=== PATIENT | male | born 1975 | race Caucasian/White ===

== ENCOUNTER 2017-12-18 08:08 | Inpatient (IN) | payer OTHER ==
[2017-12-18 08:41] LABS: ABS Basophils 0 10^3/ul (0-0.2); ABS Eosinophils 0.3 10^3/ul (0-0.6); ABS Monocytes 0.3 10^3/ul (0-0.8); ABS Neutrophils 7.4 10^3/ul (1.5-7.7); ABS Nucleated RBC 0 10^3/ul; Hematocrit 42 % (42-52); Hemoglobin 14.4 g/dl (14.0-18.0); Lymphocyte % 11.6 % (25-47); Mean Corpuscular HGB Conc 35 g/dl (31-36); Mean Corpuscular Hemoglobin 30 pg (27-31); Mean Corpuscular Volume 87 fL (80-94); Mean Platelet Volume 9.4 um3 (7.4-10.4); Nucleated Red Blood Cells % 0.1; Platelet Count 165 10^3/ul (150-450); Red Blood Count 4.82 10^6/ul (4.00-5.40); Red Cell Distribution Width 13 % (10.5-15)
[2017-12-18 08:59] LABS: EGFR Non-African American 77.4 (>60)
--- NOTE | 2017-12-18 09:27 | RAD ---
INDICATION: Chest pain COMPARISON: None TECHNIQUE: An AP portable view obtained at 0859 hours is submitted. FINDINGS: Bones/Soft Tissues: There are no acute bony findings. Cardiomediastinal: The cardiomediastinal silhouette is normal. Lungs: There are no infiltrates. Pleura: There are no pleural effusions. Other: None IMPRESSION: NO ACTIVE DISEASE.
--- NOTE | 2017-12-18 09:42 | ED ---
HPI Chest Pain - HPI Summary HPI Summary: Patient is a 42-year-old male with PMH kidney stones, asthma and nasal polyp removal presenting to the ED from [facility] presenting with acute onset severe midsternal chest pain beginning at 4:30 AM awakening him from sleep. Symptoms remained for approximately 2 hours. Pain is nonradiating. Associated with emesis, diaphoresis and weakness. Symptoms spontaneously resolved approximately 2 hours later and he arrives to the ED asymptomatic. He was given 81 mg at 6:25 AM and another 324 mg at 7:30 AM in route to ED. He states prior to medication, he was asymptomatic. Patient states he has had this midsternal ache/sharp pain which has been intermittent over the past year. Sometimes the pain occurs every few days and sometimes he will go several weeks without episodes. During these episodes that pain is generally a 5/10 and he remains able to deal with the symptoms as he realizes they will eventually spontaneously resolved. He does endorse a cocaine history, however states last use was 2 years ago. Denies any personal cardiac history. Denies any family cardiac history. He denies headache. Patient is a former smoker. Denies any associated shortness of breath. - History of Current Complaint Chief Complaint: EDChestPainROMI Time Seen by Provider: 12/18/17 08:12 Hx Obtained From: Patient Onset/Duration: Started Hours Ago Time of Onset: 04:30 Timing: Constant Initial Severity: Moderate Current Severity: Moderate Pain Intensity: 5 Pain Scale Used: 0-10 Numeric Chest Pain Location: Mid Sternal Chest Pain Radiates: No Character: Dull/Aching Aggravating Factor(s): Nothing Alleviating Factor(s): Nothing Associated Signs and Symptoms: Positive: Chest Pain - Risk Factors Pulmonary Embolism Risk Factors: Negative TAD Risk Factors: Negative - Allergy/Home Medications Allergies/Adverse Reactions: Allergies Allergy/AdvReac Type Severity Reaction Status Date / Time No Known Allergies Allergy Verified 12/18/17 08:10 Home Medications: Home Medications Albuterol HFA INHALER* [Ventolin HFA Inhaler*] 2 puff INH Q6H PRN 12/18/17 [ History Confirmed 12/18/17] Fluticas/Salmet 115/21 HFA(NF) [Advair HFA 115/21 (NF)] 2 puff INH BID 12/18/17 [History Confirmed 12/18/17] Ibuprofen TAB* [Motrin TAB* 600 MG] 600 mg PO Q8H PRN 12/18/17 [History Confirmed 12/18/17] Minerin Cream* [Minerin*] 1 applic TOPICAL DAILY PRN 12/18/17 [History Confirmed 12/18/17] Omeprazole CAP* [Prilosec CAP* 20 MG] 20 mg PO DAILY 12/18/17 [History Confirmed 12/18/17] Ranitidine TAB (NF) [Zantac TAB (NF)] 150 mg PO BID 12/18/17 [History Confirmed 12/18/17] PMH/Surg Hx/FS Hx/Imm Hx Previously Healthy: Yes Respiratory History: Reports: Hx Asthma - Immunization History Hx Pertussis Vaccination: No Immunizations Up to Date: Yes Infectious Disease History: No Infectious Disease History: Denies: Traveled Outside the [place] in Last 30 Days - Social History Occupation: Unemployed Lives: Alone - [facility] Alcohol Use: None Hx Substance Use: No Substance Use Type: Reports: None Hx Tobacco Use: Yes Smoking Status (MU): Former Smoker Review of Systems Constitutional: Negative Negative: Fever, Chills, Fatigue, Skin Diaphoresis Negative: Epistaxis, Dental Pain, Sore Throat, Ear Ache Positive: Chest Pain. Negative: Palpitations Negative: Shortness Of Breath, Cough Genitourinary: Negative Positive: no symptoms reported, see HPI Negative: Arthralgia, Myalgia Neurological: Negative All Other Systems Reviewed And Are Negative: Yes Physical Exam Triage Information Reviewed: Yes Vital Signs On Initial Exam: Initial Vitals Temp Pulse Resp BP Pulse Ox 97.0 F 65 16 126/86 97 12/18/17 08:09 12/18/17 08:09 12/18/17 08:09 12/18/17 08:12/18/17 08:09 Vital Signs Reviewed: Yes Appearance: Positive: Well-Appearing, Well-Nourished Skin: Positive: Warm, Skin Color Reflects Adequate Perfusion Head/Face: Positive: Normal Head/Face Inspection Eyes: Positive: EOMI, NICOLÁS, Conjunctiva Clear Neck: Positive: Supple, No Lymphadenopathy Respiratory/Lung Sounds: Positive: Clear to Auscultation, Breath Sounds Present Cardiovascular: Positive: RRR, Pulses are Symmetrical in both Upper and Lower Extremities, Bradycardia. Negative: Leg Edema Left, Leg Edema Right Musculoskeletal: Positive: Normal, Strength/ROM Intact Neurological: Positive: Sensory/Motor Intact, Alert, Oriented to Person Place, Time, Speech Normal Psychiatric: Positive: Normal, Affect/Mood Appropriate AVPU Assessment: Alert Diagnostics - Vital Signs Vital Signs Temp Pulse Resp BP Pulse Ox 12/18/17 08:37 22 136/82 12/18/17 08:22 65 12/18/17 08:09 97.0 F 65 16 126/86 97 - Laboratory Lab Results: Lab Results 12/18/17 12/18/17 12/18/17 Range/Units 08:30 08:30 08:30 WBC 9.0 (3.5-10.8) 10^3/ul RBC 4.82 (4.00-5.40) 10^6/ul Hgb 14.4 (14.0-18.0) g/dl Hct 42 (42-52) % MCV 87 (80-94) fL MCH 30 (27-31) pg MCHC 35 (31-36) g/dl RDW 13 (10.5-15) % Plt Count 165 (150-450) 10^3/ul MPV 9.4 (7.4-10.4) um3 Neut % (Auto) 81.6 (38-83) % Lymph % (Auto) 11.6 L (25-47) % [place] % (Auto) 3.5 (0-7) % Eos % (Auto) 3.0 (0-6) % Baso % (Auto) 0.3 (0-2) % Absolute Neuts (auto) 7.4 (1.5-7.7) 10^3/ul Absolute Lymphs (auto) 1.0 (1.0-4.8) 10^3/ul Absolute Monos (auto) 0.3 (0-0.8) 10^3/ul Absolute Eos (auto) 0.3 (0-0.6) 10^3/ul Absolute Basos (auto) 0 (0-0.2) 10^3/ul Absolute Nucleated RBC 0 10^3/ul Nucleated RBC % 0.1 D-Dimer, Quantitative (Less Than 230) ng/mL Sodium 140 (135-145) mmol/L Potassium 4.4 (3.5-5.0) mmol/L Chloride 106 (101-111) mmol/L Carbon Dioxide 30 (22-32) mmol/L Anion Gap 4 (2-11) mmol/L BUN 18 (6-24) mg/dL Creatinine 1.06 (0.67-1.17) mg/dL Est GFR ( Amer) 93.6 (>60) Est GFR (Non-Af Amer) 77.4 (>60) BUN/Creatinine Ratio 17.0 (8-20) Glucose 99 (70-100) mg/dL Lactic Acid 1.0 (0.5-2.0) mmol/L Calcium 9.2 (8.6-10.3) mg/dL Total Bilirubin 0.40 (0.2-1.0) mg/dL AST 57 H (13-39) U/L ALT 22 (7-52) U/L Alkaline Phosphatase 109 H (34-104) U/L Troponin I 5.73 H* (<0.04) ng/mL Total Protein 6.7 (6.4-8.9) g/dL Albumin 4.2 (3.2-5.2) g/dL Globulin 2.5 (2-4) g/dL Albumin/Globulin Ratio 1.7 (1-3) 12/18/17 Range/Units 09:19 WBC (3.5-10.8) 10^3/ul RBC (4.00-5.40) 10^6/ul Hgb (14.0-18.0) g/dl Hct (42-52) % MCV (80-94) fL MCH (27-31) pg MCHC (31-36) g/dl RDW (10.5-15) % Plt Count (150-450) 10^3/ul MPV (7.4-10.4) um3 Neut % (Auto) (38-83) % Lymph % (Auto) (25-47) % [place] % (Auto) (0-7) % Eos % (Auto) (0-6) % Baso % (Auto) (0-2) % Absolute Neuts (auto) (1.5-7.7) 10^3/ul Absolute Lymphs (auto) (1.0-4.8) 10^3/ul Absolute Monos (auto) (0-0.8) 10^3/ul Absolute Eos (auto) (0-0.6) 10^3/ul Absolute Basos (auto) (0-0.2) 10^3/ul Absolute Nucleated RBC 10^3/ul Nucleated RBC % D-Dimer, Quantitative 241 H (Less Than 230) ng/mL Sodium (135-145) mmol/L Potassium (3.5-5.0) mmol/L Chloride (101-111) mmol/L Carbon Dioxide (22-32) mmol/L Anion Gap (2-11) mmol/L BUN (6-24) mg/dL Creatinine (0.67-1.17) mg/dL Est GFR ( Amer) (>60) Est GFR (Non-Af Amer) (>60) BUN/Creatinine Ratio (8-20) Glucose (70-100) mg/dL Lactic Acid (0.5-2.0) mmol/L Calcium (8.6-10.3) mg/dL Total Bilirubin (0.2-1.0) mg/dL AST (13-39) U/L ALT (7-52) U/L Alkaline Phosphatase (34-104) U/L Troponin I (<0.04) ng/mL Total Protein (6.4-8.9) g/dL Albumin (3.2-5.2) g/dL Globulin (2-4) g/dL Albumin/Globulin Ratio (1-3) Result Diagrams: 18 08:30 12/18/17 08:30 Lab Statement: Any lab studies that have been ordered have been reviewed, and results considered in the medical decision making process. Re-Evaluation - Re-Evaluation First Eval Re-Evaluation Time: 09:20 Change: Unchanged - patient continues to be asymptomatic Chest Pain Course/Dx - Course Course Of Treatment: During the course of treatment, the patient is evaluated for midsternal chest pain. He was asymptomatic on arrival so was not given nitroglycerin, aspirin or morphine. He had 8 total of 405 mg aspirin prior to arrival. EKG obtained immediately on arrival which shows no evidence of ST elevations. With the read of sinus bradycardia and probable left ventricular hypertrophy. Troponin 5.73. [place] Dr. Melendez called at 9:27 AM who suggests CRP, sedimentation rate, echo, repeat EKG and admitted to hospital service. Drug screen urine obtained. Repeat EKG shows sinus bradycardia with ST elevation, probable normal early re-pole pattern. Discussed case with Dr. Benson at 9:35 AM who agrees to come see patient in the ED and consult. Consult with Dr. Benson who recommended 1mg/kg Lovenox. Dr. Melendez recommends plavix, nitopaste, and lipitor. - Chest Pain Differential Diagnosis/HQI/PQRI: Acute OR, ACS, Angina, Other: - Pericarditis, endocarditis - Diagnoses Provider Diagnoses: Chest pain, Elevated troponin - Provider Notifications Discussed Care Of Patient With: Joe Benson Instructed by Provider To: Admit As Inpatient Discharge - Sign-Out/Discharge Documenting (check all that apply): Patient Departure - Discharge Plan Condition: Fair Disposition: ADMITTED TO [facility] - Billing Disposition and Condition Condition: FAIR Disposition: Admitted to [facility]
[2017-12-18] MEDS ORDERED: Enoxaparin(*) 80 MG/0.8 ML SYR SUBCUT ONE (09:56)
[2017-12-18] MEDS ORDERED: Iohexol 350* (CONTRAST) 500 ML MDV IV ONE (09:56)
[2017-12-18] MEDS ORDERED: Albuterol HFA INHALER* 8 gm MDI INH PRN (10:32)
[2017-12-18] MEDS ORDERED: Nitroglycerin TAB 0.4 MG* 0.4 MG TAB SL ONE (10:34)
[2017-12-18] MEDS ORDERED: Morphine INJ* 2 MG/ML 1 ML SYRINGE (TWO MG - NEW SYRINGE VERSION) IV PRN (10:35)
--- NOTE | 2017-12-18 10:37 | ECHO ---
Patient: LAVELLE MONTAGUE [id number] [facility] Rec#: [id number] : 1975 Date: 12/18/2017 Age: 42y Height: 178 cm / 70.1 in Weight: 82 kg / 180.7 lbs Sex: M BSA: 2 Room#: 18 Admit Date#: 12/18/2017 Type: Inpatient Referring: Veronica Solis Reading: Herminio Melendez MD [employer] Officer: Karyna Joaquin RDCS,RDMS Transthoracic Echocardiogram Indication: CP BP: 136/82 HR: 57 Rhythm: Bradycardia Findings History: Smoker, asthma Technical Comments: The study quality is good. Left Ventricle: The left ventricular chamber size is normal. There is no left ventricular hypertrophy. There is a prominent septal knuckle. There is a focal wall motion abnormality present. There is mildly decreased left ventricular systolic function. The estimated ejection fraction is 40-45%. There is no consistent Doppler evidence of clinically significant diastolic dysfunction. The basal anterolateral, basal inferolateral, basal inferior, mid anterolateral, mid inferolateral, and mid inferoseptal wall segments are hypokinetic (score 2). The mid inferior wall segment is akinetic (score 3). Overall wallmotion score index is 1.50 Left Atrium: The left atrium is mildly dilated. Right Ventricle: The right ventricular chamber size and systolic function are within normal limits. Right Atrium: The right atrial cavity size is normal. Aortic Valve: The aortic valve is trileaflet. Systolic excursion of the aortic valve is normal. There is no evidence of aortic regurgitation. There is no evidence of aortic stenosis. Mitral Valve: The mitral valve leaflets appear normal. There is mild mitral regurgitation. There is no evidence of mitral stenosis. Tricuspid Valve: The tricuspid valve leaflets are normal. There is mild tricuspid regurgitation. No pulmonary hypertension is noted. Pulmonic Valve: The pulmonic valve appears normal. There is a trace pulmonic regurgitation. Pericardium: There is no significant pericardial effusion. Aorta: The aortic root appears normal. There is no dilatation of the aortic arch. Pulmonary Artery: The main pulmonary artery appears normal. Venous: The inferior vena cava appears normal in size. There is a greater than 50% respiratory change in the inferior vena cava dimension. Summary: There was not any prior study for comparison. Conclusions There is mildly decreased left ventricular systolic function. There is a focal wall motion abnormality present. The estimated ejection fraction is 40-45%. The left atrium is mildly dilated. There is mild mitral regurgitation. There is mild tricuspid regurgitation. Measurements Name Value Normal Range RVIDd (AP) 2D 3.3 cm (0.9 - 2.6) RVDdMajor (2D) 3.6 cm (2.2 - 4.4) RAd ISD 4CH 4.9 cm (3.4 - 4.9) RA (A4C)W 4.7 cm (2.9 - 4.6) IVSd (2D) 1.2 cm (0.6 - 1) LVPWd (2D) 0.9 cm (0.6 - 1) LVIDd (2D) 5.1 cm (3.6 - 5.4) LVIDs (2D) 4.4 cm - LV FS (2D) 13 % (25 - 45) Aortic Annulus 2.3 cm (1.4 - 2.6) Ao root diameter (2D) 3.2 cm (2.1 - 3.5) Ascending Ao 2.9 cm (2.1 - 3.4) Aortic arch 3.1 cm (1.8 - 3.4) LA dimension (AP) 2D 4 cm (2.3 - 3.8) LAd ISD 4CH 5.2 cm (2.9 - 5.3) LA ISD 4CH W 4.4 cm (2.5 - 4.5) Name Value Normal Range LA ESV BP (A/L) index 37 ml/m2 - Name Value Normal Range MV E-wave Vmax 0.8 m/sec - MV deceleration time 158 msec - MV A-wave Vmax 0.7 m/sec - MV E:A ratio 1.2 ratio - P. vein S-wave Vmax 0.5 m/sec - P. vein D-wave Vmax 0.5 m/sec - P. vein S:D Vmax ratio 1 ratio - P. vein A-wave duration 164 msec - LV septal e' Vmax 0.1 m/sec - LV lateral e' Vmax 0.09 m/sec - LV E:e' septal ratio 8 ratio - LV E:e' lateral ratio 9 ratio - Name Value Normal Range AV Vmax 1 m/sec - AV VTI 22 cm - AV peak gradient 4 mmHg - AV mean gradient 2 mmHg - LVOT Vmax 0.8 m/sec - LVOT VTI 16 cm - LVOT peak gradient 3 mmHg - LVOT mean gradient 1 mmHg - LUI Vmax 0.6 m/sec - Name Value Normal Range MR Vmax 4.7 m/sec - MR VTI 167 cm - MR flow (PISA) 30 ml/sec - MR ERO 0.06 cm2 - MR PISA radius 0.4 cm - MR alias Vmax 30 cm/sec - Name Value Normal Range TR Vmax 2.2 m/sec - TR peak gradient 19 mmHg - RAP 3 mmHg - RVSP 22 mmHg - IVC diameter 2 cm - Name Value Normal Range PV Vmax 0.5 m/sec - PV peak gradient 1 mmHg - Wallmotion BAS Normal BA Normal BAL Hypokinetic HERNESTO Hypokinetic BI Hypokinetic BIS Normal MAS Normal MA Normal MAL Hypokinetic MIL Hypokinetic AL Akinetic MIS Hypokinetic Normal AA Normal AL Normal AI Normal APEX Normal
--- NOTE | 2017-12-18 11:11 | RAD ---
INDICATION: Chest pain. Short of breath. Evaluate for pulmonary embolus. COMPARISON: None TECHNIQUE: Axial source images were obtained from the thoracic inlet to the hemidiaphragms following administration of [address] angiographic technique was utilized. Coronal and sagittal reconstructed images were acquired. CHEST FINDINGS: Neck/thyroid: The visualized neck to include the thyroid appear normal. Chest wall: There are no acute abnormalities of the bony thorax or chest wall. There is no supraclavicular, infraclavicular, or axillary lymphadenopathy. Lungs : There are no pulmonary parenchymal masses or infiltrates. The pulmonary interstitium appears normal. There are no endobronchial lesions. Cardiomediastinal structures: There is no CT evidence of acute pulmonary embolic disease. The heart is normal in size. There is no pericardial effusion. There is no evidence of aortic aneurysm or dissection. There is no mediastinal or hilar adenopathy. The esophagus appears normal. Pleura : There are no pleural-based masses or effusions. Other: None. IMPRESSION: NO CT EVIDENCE OF ACUTE PULMONARY EMBOLIC DISEASE. LUNGS CLEAR.
[2017-12-18] MEDS ORDERED: Atorvastatin* 80 MG TAB PO ONE (11:15)
[2017-12-18] MEDS ORDERED: Nitroglycerin 2% OINT* 1 GM PAK TOPICAL ONE (11:16)
[2017-12-18] MEDS ORDERED: Clopidogrel TAB* 300 MG PO ONE (11:17)
[2017-12-18] MEDS: Nitroglycerin TAB 0.4 MG* 0.4 MG TAB SL PRN (12:45)
--- NOTE | 2017-12-18 13:19 | HP ---
HISTORY AND PHYSICAL: DATE OF ADMISSION: 12/18/17 CHIEF COMPLAINT: Substernal chest pain. 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 He mentions that he has been having some intermittent midsternal chest pain for the past 1 year and a half with no identifiable alleviating nor exacerbating factors. A few hours prior to admission at around 4 :30 a.m., he was awoken from his sleep given his mid sternal chest pain that he felt is deep in quality and it was nonradiating. Again, he is not able to identify any exacerbating factors, but mentions that it feels a bit better when he is lying supine which is something new at this point from his previous history of possible angina. He was then given 81 mg of aspirin at 6:25 and mentions that 5 minutes later he feels that his chest pain peaked and disappeared completely by around 7 a.m. While on route to the ED, he was given another 324 mg of aspirin by EMS and by the time, he reached the ED, he was chest pain free. He further narrates a history intermittent chest pain as discussed with and sometimes he will go for several weeks without having any episodes and usually around 5/10 in pain scale, but mentions that today's symptoms were somewhat more painful and a little bit change in character than what he previously experienced. In the ED, he was found to have a troponin of 5.73 and was then subsequently repeated an hour later which showed an increase in his troponin at 10.34. In the ED, I requested that the patient be given one time Lovenox. Maria Teresa, the ED PA also have already spoken with Dr. Melendez who recommended a repeat EKG which I have reviewed which showed no significant changes from previous. He also recommended an echocardiogram which has been resulted and showed mildly decreased left ventricular systolic function with an EF of 40% to 45% and with focal wall motion abnormality present. More specifically, the basal anterolateral, basal inferolateral, basal inferior and mid anterolateral as well as mid inferolateral and mid inferoseptal wall segments appeared hypokinetic with a wall motion score index of 1.5. He also was found to have some mildly dilated left atrium, mild mitral regurgitation, and mild tricuspid regurgitation. Dr. Melendez is currently en route to see the patient in the ER. 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 PAST SURGICAL HISTORY: Kidney stones status post cystoscopy with lithotripsy, nasal polypectomy. ALLERGIES: NKDA. FAMILY HISTORY: Cancer in his mother, throat cancer. His dad with unknown type of cancer. SOCIAL HISTORY: He mentions that he has about an average of 2 to 5 years of 1 pack per day smoking history which he mentions is difficult to quantify given that he has tried to quit multiple times and has recently cut back to 3 to 5 cigarettes per day since being in [facility]. He mentioned that his last IV drug use/illicit drug use was about 2 years ago with cocaine and heroin. REVIEW OF SYSTEMS: The patient upon my evaluation no longer complains of any chest pain, although he has had one recently which is change in both in its quality as well as its severity leading to his presentation. Denied any shortness of breath, denied any headache, fevers, chills, nausea, vomiting, abdominal pain, diarrhea, constipation, pain, and/or increased frequency in urination, myalgias, arthralgias, throat pain, or new skin lesions. The rest of the 14-point review of systems other than what was described above are otherwise unremarkable. PHYSICAL EXAMINATION GENERAL APPEARANCE: The patient is awake, alert, and oriented x3, not in acute distress. VITAL SIGNS: Reveals the most recent vital signs of records with blood pressure of 121/81, 60 beats per minute heart rate, 22 per minute respiratory rate, saturating at 96% on room air. HEENT: Normocephalic and atraumatic. PERRLA. Extraocular muscles intact. Negative for icterus. Moist oral mucosa. Negative throat erythema. NECK: Soft, supple with no cervical lymphadenopathy. No JVD. But with positive hepatojugular reflux. HEART: S1 and S2 within normal limits. Regular rate and rhythm. No murmurs, rubs, or gallops. No murmurs has been identified in both the supine and forward leaning position and does not suggest perimyocarditis. ABDOMEN: Soft, nondistended, and nontender. Normoactive bowel sounds x4 quadrants. EXTREMITIES: No cyanosis, clubbing, or edema. PSYCHIATRIC: No active psychosis, depression, suicidal, or homicidal ideations. SKIN: Warm to touch. DIAGNOSTIC STUDIES/LAB DATA: Pertinent laboratories are as follows: CBC is relatively normal except for a mildly low differential lymph count of 11.6, D- dimer was found to be mildly elevated at 241, but low for his age. His CMP was relatively reassuring except for mildly elevated AST of 57 and alkaline phosphatase of 109. And of course as discussed his troponin was elevated at 5.73 and on repeat was found to be 10.34. His EKG shows 57 beats per minute sinus bradycardia with no ST segment changes and on repeat, there is no significant ST segment changes as well with the same rhythm in the sinus bradycardic range. Chest x-ray shows no active disease. ASSESSMENT AND PLAN: As follows: The patient is a 42-year-old gentleman with a history of gastroesophageal reflux disease, asthma, and history of IV drug use with cocaine and heroin. Last use was 2 years ago, being admitted for non-ST segment elevation myocardial infarction. 1. Non-ST segment elevation myocardial infarction vs Printzmetal spasms. I have advised the patient to be given at least a one-time dose of 1 mg/kg Lovenox and we will restart aspirin at 325 mg p.o. daily tomorrow given he has already received 81 plus 324 of aspirin both [facility] as well as en route respectively. We will place the patient on a p.r.n. nitroglycerin sublingual given the patient is chest pain free with the p.r.n. breakthrough with morphine. We will place the patient on oxygen protocol to maintain sats at least 92% to 94% above. We will further await Dr. Melendez's evaluation and likely the patient will be taken for a cath, but we will defer. CTA of the chest has also been ordered by ER staff, although I do not believe that this is due to a pulmonary embolism given his significantly elevated troponin as well as absence of radiation of pain to the back as well as his age , just the D-dimer value is less than 400. Utox pending. 2. Asthma, not in acute exacerbation. Continue p.r.n. albuterol MDI and we will continue watchful waiting. 3. Gastroesophageal reflux disease. We will hold off on ranitidine given the patient is already on a PPI and therefore instead we will the patient on PPI b.i.d. 4. Prophylaxis. The patient has been fully anticoagulated. We will discuss with Dr. Melendez if he prefers the patient to be placed on subsequent anticoagulation post catheterization and we will defer at this time. 5. Disposition. As above. [id number] #: [id number] MTDD
[2017-12-18] MEDS ORDERED: Heparin 2 UNITS/ML IVPREMIX* 2,000 ML IV ONE (13:25)
[2017-12-18] MEDS ORDERED: Heparin(*) 1000 UNIT/ML 10 ML VIAL CATH LAB IV ONE (13:25)
[2017-12-18] MEDS ORDERED: Midazolam* 1 MG/ML 10 ML VIAL (10 MG) ONE ×2 (13:25→13:39)
[2017-12-18] MEDS ORDERED: VERAPAMIL 2.5 MG/ML 2 ML VIAL ** 5 mg/2 ml ONE (13:25)
[2017-12-18] MEDS ORDERED: fentaNYL* 50 MCG/ML 2 ML VIAL (100 MCG VIAL) ONE ×3 (13:25→14:17)
[2017-12-18] MEDS ORDERED: Iohexol 350 (CONTRAST) 200 ML MDV IV ONE (13:26)
[2017-12-18] MEDS ORDERED: nitroGLYCERIN DRIP* 25,000 MCG/250 ML BTL ONE (13:26)
[2017-12-18] MEDS ORDERED: Lidocaine 1%* 5 ML VIAL ONE (13:27)
[2017-12-18] MEDS ORDERED: Clopidogrel TAB* 300 MG PO STA (13:50)
[2017-12-18] MEDS ORDERED: NS 0.9% 1000 ML* 1,000 ML IV SCH (15:00)
--- NOTE | 2017-12-18 15:55 | CONS ---
CC: Dr. Herminio Melendez * CARDIOLOGY CONSULTATION: DATE OF CONSULT: 12/18/17 REASON FOR EVALUATION: Chest pain, non-ST elevation [place]. HISTORY OF PRESENT ILLNESS: This is a 42-year-old inmate who presented with 3 hours of severe chest pain this morning, which woke him from sleep. He had trouble describing the quality of pain, but said it was severe and doubled him over and was associated with profuse diaphoresis, vomiting was at its most intense at 6 a.m. He said it was 10/10. He was brought to the emergency room by that time his pain had resolved, originally told the doctors it was gone, told me in retrospect it was down to 5/10 when he first arrived here and then went to 3/10 and by the time I finished my exam at about 11:15, it was resolved. 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 However, his troponins were elevated at 5.73 at 08:30 a.m. and a repeat at 09:39 was 10.34. He said that the pain seemed to be worse lying on his back and somewhat better sitting up. He said this was the most intense episode he has had, but over the last [id number] he has had lesser episodes. He said that a year-and-a- half ago, he was evaluated and it was thought that he had asthma and was given inhalers. He said the inhalers made it so that he was less short of breath when he had the episodes, but they continued to happen and first they were happening every couple of weeks. They would resolve by the time he got to medical care. He said that about a month ago they were happening more frequently just about every other day. He stopped smoking and they got better. He had a mild episode last week and then this episode this morning awoke him from sleep and was the most severe episode. He says they usually occur when sitting and watching television or sleeping. 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 He jogs 15 to 30 minutes most days and he does weightlifting. He does not get the pain with exercise. He has had no orthopnea, no peripheral edema, no strokes or mini strokes. No palpitations, no syncope, or near syncope. He says he has a longstanding history of tobacco use of a pack per day since he is a teenager until a few weeks ago. He smoked 1 pack a day for approximately 25 years. He denies hypertension, denies hyperlipidemia, denies diabetes. He does have a history of cocaine use until 3 years ago. He has a history of nephrolithiasis since 2016, status post stenting. Of note, he reports that about half hour before he gets these episodes of chest pain, he will have some rhinorrhea and then his symptoms usually occur half hour later. He was in the ER in July and it was thought he had indigestion, he said there was no blood testing done. He said that he was started on Zantac and took it regularly for several months, but there was no change in his symptoms. The patient reports that about 4 months ago he noticed a subcutaneous nodule on his left breast and is concerned about that because of his mother's history of breast cancer. He also has a history of drinking vodka on weekends prior to incarceration in July of 2016. No recreational drugs or alcohol since then. PAST SURGICAL HISTORY: Includes a nasal polyp. FAMILY HISTORY: Mother of throat cancer and had breast cancer. Father is alive at 70 and well. He has a sister who is alive and well. He is single, has no children. 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 REVIEW OF SYSTEMS: Review of systems x10 was negative except as above. PHYSICAL EXAM: He is a well-developed, well-nourished muscular gentleman, in no apparent distress. Weight 180 pounds, blood pressure 132/96, pulse of 67 with sitting. No JVD. Carotids 2+ without bruits. No cervical adenopathy. No thyromegaly. Cardiac Exam: S1 and S2. No clear murmurs, gallops, or rubs. Chest was clear. No CVAT. There was a small firm area under his left nipple about 1 cm. Abdomen: Bowel sounds present, nontender. Femoral pulses intact without bruits. Distal pulses intact. No edema. Motor strength 5/5 bilaterally. Deep tendon reflexes 2/4. Alert and oriented x3. DIAGNOSTIC STUDIES/LAB DATA: EKG reveled sinus bradycardia 57 with nonspecific inferior T-wave inversion in III and nonspecific ST changes in aVF and that was from 09:20 not significantly different from 08:[address] changes in aVF and the T-wave inversion was slightly more pronounced. He did have an echocardiogram performed, which revealed an EF of 40 to 45% with inferoseptal, posterolateral hypokinesis, small area of akinesis, mild MR, and there was mild TR. He had a CTA of his chest, no evidence of pulmonary embolic events and labs , normal BMP. BNP of 67, CRP of 1.27, sed rate is 7, normal CBC. D-dimer is mildly elevated at 241. IMPRESSION: My impression is that Mr. Kern appears to have a non-ST elevation myocardial infarction with a pattern of pain that is somewhat unusual in that it occurs at rest and preceded by rhinorrhea, reason possibly of vasomotor dysfunction. He has stable exercise capacity in between episodes. For the time being, I have recommended the following: I suggest that we continue aspirin and add Plavix to his regimen. We continue with Lovenox as you are doing. Would add low-dose nitrates. He is to have a catheterization. I discussed the case with Dr. Rodriguez. If he has recurrent pain, we will do it on a more urgent basis. I will keep him n.p.o. Would add Lipitor 40 mg today to his regimen. I strongly advised discontinuation of tobacco use. If indeed he has spasm, he may benefit from sublingual nitroglycerin p.r.n. as well as calcium channel armen to decrease likelihood of vasomotor dysfunction. If his EF remains low and he had atherosclerotic disease, we will consider adding an KELLY inhibitor. Obviously, cocaine could be life-threatening in the setting of vasospasm or coronary artery disease and needs to be discontinued. He did mention that he has a left nipple subcutaneous lesion, I suggested followup as an outpatient. [id number]/[facility] #: [id number] addendum: Patient subsequently had recurrent mild cp on 12.18.17 and underwent cardiac cath ; see separate report. It confirmed spasm in an OM branch relieved with IC NTG. His cp was also relieved. I suspect that his presentation is consistent with coronary vasospasm ( presumably in the RCA and other vessels given the inferior posterolateral wall motion abnormalities. Plan: 1. add amlodipine for vasospasm 2. continue asa 81 mg 3. continue statin 4. advised to discontinue tobacco, 5. risk of vasospasm, vessel injury, and with cocaine, amphetamines reviewed. 6. add kelly inhib if bp will allow 7. PRN sl NTG for recurrent episodes. 8. Patient should have sl ntg with him at all times. 9. Refrain from vigorous activity including soccer , jogging until further notice. 10. gentle walking is permitted. FEDERICO 8.10.18 9;22 am MTDD
[2017-12-18] MEDS: amLODIPine TAB* 5 MG PO SCH (17:38)
[2017-12-18] MEDS: Acetaminophen TAB* 325 MG PO PRN (17:39)
[2017-12-18] MEDS: traMADol TAB* 50 MG PO PRN (20:53)
[2017-12-18] MEDS: Pantoprazole TAB (NF) 40 MG TAB PO SCH (20:53)
[2017-12-19 06:10] LABS: ABS Basophils 0 10^3/ul (0-0.2); ABS Lymphocytes 2.2 10^3/ul (1.0-4.8); ABS Monocytes 0.4 10^3/ul (0-0.8); ABS Neutrophils 2.6 10^3/ul (1.5-7.7); ABS Nucleated RBC 0 10^3/ul; Eosinophil % 15.8 % (0-6); Hematocrit 41 % (42-52); Hemoglobin 13.9 g/dl (14.0-18.0); Lymphocyte % 35.1 % (25-47); Mean Corpuscular HGB Conc 34 g/dl (31-36); Mean Corpuscular Hemoglobin 30 pg (27-31); Mean Corpuscular Volume 87 fL (80-94); Mean Platelet Volume 9.8 um3 (7.4-10.4); Nucleated Red Blood Cells % 0.3; Platelet Count 156 10^3/ul (150-450); Red Blood Count 4.72 10^6/ul (4.00-5.40); Red Cell Distribution Width 13 % (10.5-15); White Blood Count 6.2 10^3/ul (3.5-10.8)
[2017-12-19 07:32] LABS: EGFR Non-African American 84.7 (>60)
[2017-12-19] MEDS ORDERED: Aspirin EC TAB* 325 MG PO SCH (09:00)
[2017-12-19] MEDS ORDERED: Clopidogrel TAB* 75 MG PO SCH (09:00)
[2017-12-19] MEDS: amLODIPine TAB* 5 MG PO SCH (09:48)
[2017-12-19] MEDS: Atorvastatin* 40 MG TAB PO SCH (09:48)
[2017-12-19] MEDS: Acetaminophen TAB* 325 MG PO PRN ×2 (09:50→22:20)
[2017-12-19] MEDS: Pantoprazole TAB (NF) 40 MG TAB PO SCH ×2 (09:51→22:16)
--- NOTE | 2017-12-19 14:19 | ECHO ---
Patient: LAVELLE MONTAGUE [id number] [facility] Rec#: [id number] : 1975 Date: 12/19/2017 Age: 42y Height: 178 cm / 70.1 in Weight: 82.7 kg / 182.3 lbs Sex: M BSA: 2 Room#: 453 Admit Date#: 12/18/2017 Type: Inpatient Referring: Herminio Melendez MD Reading: Herminio Melendez MD Safety Sealer: Pura Singh RN RDCS Transthoracic Echocardiogram Indication: Myocardial infarction, S/P PCI BP: 130/80 HR: 61 Rhythm: NSR Findings History: Smoker, asthma. This is a LIMITED exam to reassess EF. Technical Comments: The study quality is good. Left Ventricle: There is a focal wall motion abnormality present. There is mildly decreased left ventricular systolic function. The estimated ejection fraction is 40-45%. closer to 45%. The basal inferolateral, basal inferior, mid inferolateral, mid inferior, and apical inferior wall segments are hypokinetic (score 2). Overall wallmotion score index is 1.31 Conclusions There is a focal wall motion abnormality present. There is mildly decreased left ventricular systolic function. The estimated ejection fraction is 40-45%, closer to 45%. Mild interval improvement in the moderate area of inferior posterolateral hypokinesis c/t 8.9.18. There has been resolution of the small area of inferior-posterior akinesis. The EF was closer to 35-40% of the prior study when compared visually. Wallmotion BAS Normal BA Normal BAL Normal HERNESTO Hypokinetic BI Hypokinetic BIS Normal MAS Normal MA Normal MAL Normal MIL Hypokinetic FL Hypokinetic MIS Normal Normal AA Normal AL Normal AI Hypokinetic APEX Normal
--- NOTE | 2017-12-19 16:45 | RAD ---
INDICATION: Suspect left-sided gynecomastia COMPARISON: None TECHNIQUE: Radial and antiradial scans of the retroareolar portions of each breast were performed using grayscale and color Doppler imaging. FINDINGS: There is asymmetric parenchymal tissue in the retroareolar left breast. This does not appear masslike. Clinical management, however, is required to include subareolar biopsy if clinically suspicious. No additional findings. IMPRESSION: PROBABLE LEFT-SIDED GYNECOMASTIA. CLINICAL MANAGEMENT IS REQUIRED OUTLINED ABOVE. ASSESSMENT: ACR BIRADS Category 2: Benign
--- NOTE | 2017-12-19 16:45 | RAD ---
INDICATION: Palpable abnormality left breast. Evaluate for gynecomastia /mass COMPARISON: Baseline Date of last clinical breast examination: Today TECHNIQUE: Digital breast tomosynthesis was performed on both breasts in the mediolateral oblique and craniocaudad projections. C-View reconstructed mammograms were obtained in both projections. The examination was reviewed with the [email or web address] CAD system. The study was reviewed by a computer aided diagnosis system. Breast Composition: 1 The breasts are almost entirely fatty Masses: There is non masslike asymmetric density in the retroareolar left breast which is likely gynecomastia. Ultrasonographic evaluation, however, is recommended and is currently pending. Calcifications: There are no suspicious or clustered microcalcifications. Breast architecture: There are no areas of architectural distortion. Skin: There is no skin thickening or nipple retraction. Other: None IMPRESSION: ASYMMETRIC PARENCHYMAL DENSITY IN THE RETROAREOLAR LEFT BREAST MAY REPRESENT GYNECOMASTIA. ULTRASONOGRAPHY IS PENDING. IF THIS IS SUSPICIOUS CLINICALLY, SUGGEST SURGICAL REFERRAL FOR SUBAREOLAR BIOPSY. Assessment: ACR BI-RADS Category 0: Incomplete - Need Additional Imaging Evaluation and /or Prior Mammograms for Comparison PT Reminder: CPT II Codes: 7025F Follow-up: No Follow Up [employer] recommend annual screening mammography beginning at age 40.
--- NOTE | 2017-12-19 17:23 | PN ---
Subjective Date of Service: 12/19/17 - ] Interval History: Pt seen and examined. Meds and labs reviewed. CC: Brief Chest pain early in the morning---pt, however, did not report it to anyone. ROS: Denied LLOYD/dizziness, F/C, N/V, CP, SOB, increased cough, sputum production , abd pain, diarrhea, constipation, dysuria, myalgias, arthralgias, throat pain , and new skin lesions. The rest of the 14 point ROS are unremarkable. PHYSICAL EXAM: GEN APPEARANCE: Awake, not in acute distress HEENT: NC/AT, PERRLA, moist oral mucosa, (-) throat erythema, (+) HJR NECK: Soft, supple, (-) cervical LAD, (-)JVD HEART: S1S2 WNL, RRR, No MRG CHEST: CTA, BL, GAE, No W/R/R, Pt has palpable breast nodule/mass ABD: Soft, ND/NT, NABS 4x Q EXT: No C/C/E SKIN: Warm to touch PSYCH: No active psychosis, hallucinations, depression, SI/HI Objective Active Medications: Acetaminophen (Tylenol Tab*) 650 mg PO Q6H PRN PRN Reason: HEADACHE Last Admin: 12/19/17 09:50 Dose: 650 mg Albuterol (Ventolin Hfa Inhaler*) 2 puff INH Q6H PRN PRN Reason: WHEEZING Amlodipine Besylate (Norvasc Tab*) 2.5 mg PO DAILY [facility] Last Admin: 12/19/17 09:48 Dose: 2.5 mg Aspirin (Aspirin 81 Mg Chew Tab*) 81 mg PO DAILY [facility] Atorvastatin Calcium (Lipitor*) 40 mg PO DAILY [facility] Last Admin: 12/19/17 09:48 Dose: 40 mg Morphine Sulfate (Morphine Inj ((Syringe))*) 0.5 mg IV Q6H PRN PRN Reason: PAIN Nitroglycerin (Nitroglycerin Tab 0.4 Mg*) 0.4 mg SL Q5M PRN PRN Reason: ANGINA Last Admin: 12/18/17 12:45 Dose: 0.4 mg Pantoprazole Sodium (Protonix Tab (Nf)) 40 mg PO BID [facility] Last Admin: 12/19/17 09:51 Dose: 40 mg Tramadol HCl (Ultram*) 50 mg PO Q6H PRN PRN Reason: PAIN Last Admin: 12/18/17 20:53 Dose: 50 mg Vital Signs - 8 hr 12/19/17 12/19/17 12/19/17 11:00 13:11 13:53 Temperature 98.2 F 98.1 F Pulse Rate 53 57 75 Respiratory 20 20 Rate Blood Pressure 113/74 116/65 123/70 (mmHg) O2 Sat by Pulse 97 97 Oximetry 12/19/17 15:37 Temperature 98.5 F Pulse Rate 59 Respiratory 20 Rate Blood Pressure 122/71 (mmHg) O2 Sat by Pulse 96 Oximetry Oxygen Devices in Use Now: None Result Diagrams: 12/19/17 05:15 12/19/17 05:15 Additional Lab and Data: Lab Results 12/18/17 12/18/17 12/18/17 Range/Units 08:30 08:30 08:30 WBC 9.0 (3.5-10.8) 10^3/ul RBC 4.82 (4.00-5.40) 10^6/ul Hgb 14.4 (14.0-18.0) g/dl Hct 42 (42-52) % MCV 87 (80-94) fL MCH 30 (27-31) pg MCHC 35 (31-36) g/dl RDW 13 (10.5-15) % Plt Count 165 (150-450) 10^3/ul MPV 9.4 (7.4-10.4) um3 Neut % (Auto) 81.6 (38-83) % Lymph % (Auto) 11.6 L (25-47) % Collin % (Auto) 3.5 (0-7) % Eos % (Auto) 3.0 (0-6) % Baso % (Auto) 0.3 (0-2) % Absolute Neuts (auto) 7.4 (1.5-7.7) 10^3/ul Absolute Lymphs (auto) 1.0 (1.0-4.8) 10^3/ul Absolute Monos (auto) 0.3 (0-0.8) 10^3/ul Absolute Eos (auto) 0.3 (0-0.6) 10^3/ul Absolute Basos (auto) 0 (0-0.2) 10^3/ul Absolute Nucleated RBC 0 10^3/ul Nucleated RBC % 0.1 D-Dimer, Quantitative (Less Than 230) ng/mL Sodium 140 (135-145) mmol/L Potassium 4.4 (3.5-5.0) mmol/L Chloride 106 (101-111) mmol/L Carbon Dioxide 30 (22-32) mmol/L Anion Gap 4 (2-11) mmol/L BUN 18 (6-24) mg/dL Creatinine 1.06 (0.67-1.17) mg/dL Est GFR ( Amer) 93.6 (>60) Est GFR (Non-Af Amer) 77.4 (>60) BUN/Creatinine Ratio 17.0 (8-20) Glucose 99 (70-100) mg/dL Lactic Acid 1.0 (0.5-2.0) mmol/L Calcium 9.2 (8.6-10.3) mg/dL Total Bilirubin 0.40 (0.2-1.0) mg/dL AST 57 H (13-39) U/L ALT 22 (7-52) U/L Alkaline Phosphatase 109 H (34-104) U/L Troponin I 5.73 H* (<0.04) ng/mL Total Protein 6.7 (6.4-8.9) g/dL Albumin 4.2 (3.2-5.2) g/dL Globulin 2.5 (2-4) g/dL Albumin/Globulin Ratio 1.7 (1-3) 12/18/17 Range/Units 09:19 WBC (3.5-10.8) 10^3/ul RBC (4.00-5.40) 10^6/ul Hgb (14.0-18.0) g/dl Hct (42-52) % MCV (80-94) fL MCH (27-31) pg MCHC (31-36) g/dl RDW (10.5-15) % Plt Count (150-450) 10^3/ul MPV (7.4-10.4) um3 Neut % (Auto) (38-83) % Lymph % (Auto) (25-47) % Collin % (Auto) (0-7) % Eos % (Auto) (0-6) % Baso % (Auto) (0-2) % Absolute Neuts (auto) (1.5-7.7) 10^3/ul Absolute Lymphs (auto) (1.0-4.8) 10^3/ul Absolute Monos (auto) (0-0.8) 10^3/ul Absolute Eos (auto) (0-0.6) 10^3/ul Absolute Basos (auto) (0-0.2) 10^3/ul Absolute Nucleated RBC 10^3/ul Nucleated RBC % D-Dimer, Quantitative 241 H (Less Than 230) ng/mL Sodium (135-145) mmol/L Potassium (3.5-5.0) mmol/L Chloride (101-111) mmol/L Carbon Dioxide (22-32) mmol/L Anion Gap (2-11) mmol/L BUN (6-24) mg/dL Creatinine (0.67-1.17) mg/dL Est GFR ( Amer) (>60) Est GFR (Non-Af Amer) (>60) BUN/Creatinine Ratio (8-20) Glucose (70-100) mg/dL Lactic Acid (0.5-2.0) mmol/L Calcium (8.6-10.3) mg/dL Total Bilirubin (0.2-1.0) mg/dL AST (13-39) U/L ALT (7-52) U/L Alkaline Phosphatase (34-104) U/L Troponin I (<0.04) ng/mL Total Protein (6.4-8.9) g/dL Albumin (3.2-5.2) g/dL Globulin (2-4) g/dL Albumin/Globulin Ratio (1-3) Assess/Plan/Problems-Billing Assessment: - Patient Problems (1) NSTEMI (non-ST elevated myocardial infarction) Current Visit: Yes Status: Acute Code(s): I21.4 - NON-ST ELEVATION (NSTEMI) MYOCARDIAL INFARCTION SNOMED Code(s): 239061443 Comment: -Likely due to coronary vasospasm given inferior posterolateral wall motion abnormalities -Continue Amlodipine, ASA, statins, abstinence from tobacco, and PRN NTG, SL -Consider adding ACEI in AM or if CP reccurs, consider increasing amlodipine instead??? Will discuss with Cards if it does. -Appreciate Dr. Cain/Cardiology service input (2) Breast mass in male Current Visit: Yes Status: Acute Code(s): N63.0 - UNSPECIFIED LUMP IN UNSPECIFIED BREAST SNOMED Code(s): 25402274 Comment: -For limited left breast U/S and mammogram---d/w Dr. Rios given pt is in correctional facility with significant family history (3) Asthma Current Visit: Yes Status: Acute Code(s): J45.909 - UNSPECIFIED ASTHMA, UNCOMPLICATED SNOMED Code(s): 228748328 Comment: -Not in acute exacerbation -Continue PRN Albuterol (4) GERD (gastroesophageal reflux disease) Current Visit: Yes Status: Acute Code(s): K21.9 - GASTRO-ESOPHAGEAL REFLUX DISEASE WITHOUT ESOPHAGITIS SNOMED Code(s): 385983044 Comment: -Continue Pantoprazole (5) DVT prophylaxis Current Visit: Yes Status: Acute Code(s): HEI3082 - SNOMED Code(s): 358328409 Comment: -Will Place of SQ Lovenox Status and Disposition: -For possible D/C in AM -Being monitored O/N due to recurrent CP -(-)HIV and HCV
[2017-12-19] MEDS ORDERED: Enoxaparin(*) 40 MG/0.4 ML SYR SUBCUT SCH (18:00)
[2017-12-19] MEDS: Aspirin 81 mg CHEW TAB* 81 MG TAB.CHEW PO SCH (18:04)
[2017-12-20] MEDS: Atorvastatin* 40 MG TAB PO SCH (08:26)
[2017-12-20] MEDS: amLODIPine TAB* 5 MG PO SCH (08:27)
[2017-12-20] MEDS: Acetaminophen TAB* 325 MG PO PRN (08:27)
[2017-12-20] MEDS: Aspirin 81 mg CHEW TAB* 81 MG TAB.CHEW PO SCH (08:27)
[2017-12-20] MEDS ORDERED: Lisinopril TAB* 5 MG PO SCH (10:00)
[2017-12-20] MEDS: Pantoprazole TAB (NF) 40 MG TAB PO SCH (10:05)
[2017-12-20] MEDS: Nitroglycerin TAB 0.4 MG* 0.4 MG TAB SL PRN ×3 (12:16→12:27)
[2017-12-20] MEDS: traMADol TAB* 50 MG PO PRN (12:20)
[2017-12-20] MEDS ORDERED: Al Hydrox/Mg Hydrox/Simet LIQ* 30 ML UDC PO STA (12:26)
[2017-12-20 14:31] VITALS: BP 118/61
--- NOTE | 2017-12-20 16:22 | CATH ---
CARDIAC CATH REPORT: DATE OF CATHETERIZATION: 12/18/17. PRIMARY CARE PHYSICIAN: ebony HEALTH THERAPIST: PROCEDURES: 1. Right radial artery access, bilateral selective coronary cineangiography. 2. Left heart catheterization. 3. Left ventriculography. HISTORY: A 42-year-old male prisoner with troponin positive ACS, with several prior episodes of prolonged rest pain especially in the morning hours, referred for coronary angiography due to non-ST elevation infarct. PROCEDURE ACCESS: Right radial artery, sheath 6F slender. MEDICATIONS: 1. Subcu lidocaine. 2. IV Versed. 3. IV fentanyl. 4. Heparin 3000 units. 5. Verapamil 3 mg. 6. Nitroglycerin 300 mcg IA. 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 With resolution of angiographic ostial spasm, he had resolution of his chest "soreness" without knowing that he had received nitroglycerin. HEMODYNAMICS: Initial AO 99/74, LV 98/3-15, no aortic valve gradient on pullback. ANGIOGRAPHY: RCA: The RCA is large, dominant with a large PDA and small-to- moderate posterolateral. He has mild luminal irregularity without significant stenosis. The RCA has somewhat slow flow. Left Main: The left main is large, normal. LAD: The LAD is large, extends past apex, supplies a large diagonal branch, which bifurcates, the LAD has mild systolic bridging in its mid portion, has no significant stenosis. Circumflex: The circumflex is large, not dominant with a moderate first marginal, and then 3 small marginals before a moderate posterolateral. The fourth marginal has ostial 90% stenosis, is very small, the posterolateral has 30% proximal stenosis. After IA nitroglycerin 200 mcg, repeat angiogram in the same angle documented resolution of the ostial spasm of the fourth marginal branch. LV gram: There is inferior and inferobasilar severe hypo to akinesis with some tethering, estimated LVEF 45%. IMPRESSION: 1. Documented angiographic symptomatic coronary artery spasm, fourth marginal branch ostium. This is not concordant with his wall motion abnormality, I suspect he has had recurring episodes of RCA spasm with an inferior infarct. He will be treated medically for coronary artery spasm. 2. Normal left-sided hemodynamics. 3. Successful right radial artery access. 4. Mild LV systolic dysfunction. [id number]/[facility] #: [id number] GINA
--- NOTE | 2017-12-20 23:44 | DS ---
CC: Dr. Barraza; Dr. Melendez DISCHARGE SUMMARY: DATE OF ADMISSION: DATE OF DISCHARGE: 12/20/17 DISCHARGE DIAGNOSES: As follows: 1. Non ST-segment elevation myocardial infarction secondary to coronary vessel spasms. 2. 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 3. Breast mass on the left, likely due to gynecomastia, status post breast ultrasound and mammogram. 4. Asthma. 5. Gastroesophageal reflux disease. DISCHARGE MEDICATIONS: As follows: 1. Tylenol 650 mg p.o. q.6 p.r.n. 2. Albuterol 2 puffs inhalation q.6 p.r.n. 3. Amlodipine 2.5 mg p.o. daily. 4. Aspirin 81 mg p.o. daily. 5. Atorvastatin 40 mg p.o. daily. 6. Advair HFA 115/21 mcg 2 puffs inhalation b.i.d. 7. Lisinopril 2.5 mg p.o. daily. 8. Minerin cream 1 application topically daily. 9. Nitroglycerin 0.4 mg sublingual q.5 minutes x3, then by the third dose the patient has been instructed to call for a licensed practitioner for evaluation. 10. Pantoprazole 40 mg p.o. b.i.d. 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 He presented to the ED with an initial troponin of 5.18 and 4 hours later was repeated and was found to be 9.80. His EKG did not show any ST segment changes. Cardiology was immediately called due to suspicion of NSTEMI secondary to coronary vasospasm given his urine tox screen was found to be negative and it is positive for opiates simply because he was given opiates in the ER due to his chest pain. He was taken to the laboratory operations coordinator and was found to have angiographic symptomatic coronary artery spasm, fourth marginal branch ostium, which was thought to be not concordant with his wall motion abnormality. It is suspected that he has had recurring episodes of RCA spasm with an inferior infarct. He was found to have normal left-sided hemodynamics with mild LV systolic dysfunction. His 2D echo reveals focal wall motion abnormality that is present with mildly decreased left ventricular systolic function with an EF of 40% to 45%, but closer to 45% with mild interval improvement in the moderate area of inferior posterolateral hypokineses and there has been a resolution of the small area of the inferoposterior akinesis that was found. Previous 2D echo done showed an EF of 35% to 40%. The latest 2D echo was done on 12/19/17 and the first one was done the day before on . He also was ruled out for a PE with a CT angio on admission. During his hospital course, he relates a narrative of significant family history with his mother passing away of breast and throat cancer and was concerned about a small lump under his left nipple. He was then sent for ultrasound and mammography of the area and it was thought that this is nonsuspicious and likely due to gynecomastia. He denies any exogenous steroid use that may lead to this. His testosterone level was drawn prior to his discharge, which was found to be normal at 287.67. He was advised to follow up with his primary care physician, on follow up to determine the next best step would be. He was advised to continue to observe his breast area given he was particularly concerned about this given his significant family history and if any changes such as increasing pain, discharge, or additional lesions or masses found to follow up for a possible biopsy with surgical practitioner and will defer. The patient was advised to follow up and/or call his PCP/facility MD within 3 days post discharge and if he is having any problems and/or if his symptoms worsen to call his PCP first to see if his concerns can be addressed in a timely manner. If not or if he has been advised to go to the ER, to please discuss with his PCP whether [facility] followup is appropriate versus ER and to call [facility] if deemed appropriate. He was advised to make sure he has his subinguinal nitroglycerin readily available and if his symptoms do not resolve after the third dose if needed, then he must inform his facility MD to be further evaluated. He was advised to follow up with his storage management architect, Dr. Melendez, in 2 weeks and to call his office to schedule an appointment with a phone number of [phone]. He was advised to stop smoking cigarettes at any amount forever. He was advised to continue abstaining from any illicit drugs, although he has had a negative drug screen on admission, however given his previous history he was reminded not to expose himself especially to cocaine and/or amphetamines. He was advised to discuss his testosterone level with his PCP to further evaluate the reason for his gynecomastia. He was advised that if he develops any new breast mass, breast pain, discharge, abnormality of skin around his breast/pectorals, to please have this evaluated by his surgeon for possible biopsy given his significant family history. He was advised to call my office regarding any questions, concerns, or further clarifications regarding his discharge plans and/or prescriptions. He was advised to take his medications as prescribed. PHYSICAL EXAMINATION: Reveals a most recent vital signs of records with blood pressure of 118/61, 20 per minute respiratory rate, 65 beats per minute heart rate, 97.8 degrees Fahrenheit. General Appearance: The patient is awake, alert , and oriented x3. Not in acute distress. HEENT: Normocephalic and atraumatic , PERRLA. Extraocular movements intact. Negative for icterus. Moist oral mucosa. Negative throat erythema. Neck is soft, supple with no cervical lymphadenopathy, no JVD. Heart: S1 and S2 within normal limits. Regular rate and rhythm. No murmurs, rubs, or gallops. Chest: Clear to auscultation bilaterally, good air entry. No wheezes, rales, or rhonchi. Abdomen is soft, nondistended, and nontender. Normoactive bowel sounds 4 times Q. Extremities: No cyanosis, clubbing, or edema. Psychiatric: No active psychosis, depression, suicidal nor homicidal ideations. Skin: Warm to touch. TIME SPENT: The total time spent evaluating the patient, reviewing pertinent data, and appropriate documentation is greater than 30 minutes. [id number]/[facility] #: [id number] GINA
== END 2017-12-20 16:28 | DRG 190 ==
LOC: ED 08:08 → EEVIPCON 10:30 → MEDTELE 10:30
PROVIDERS: ADMIT Student in an Organized Health Care Education/Training Program; ATTEND Student in an Organized Health Care Education/Training Program
PROC: B2151ZZ Fluoroscopy of Left Heart using Low Osmolar Contrast (ICD-10-PCS; 2017-12-18)
PROC: B2111ZZ Fluoroscopy of Multiple Coronary Arteries using Low Osmolar Contrast (ICD-10-PCS; 2017-12-18)
PROC: 4A023N7 Measurement of Cardiac Sampling and Pressure, Left Heart, Percutaneous Approach (ICD-10-PCS; principal; 2017-12-18 14:00)
DX: I21.4 Non-ST elevation (NSTEMI) myocardial infarction (principal); J45.909 Unspecified asthma, uncomplicated; I08.1 Rheumatic disorders of both mitral and tricuspid valves; K21.9 Gastro-esophageal reflux disease without esophagitis; I20.1 Angina pectoris with documented spasm; N62 Hypertrophy of breast; N63.20 Unspecified lump in the left breast, unspecified quadrant; Z79.82 Long term (current) use of aspirin; Z87.442 Personal history of urinary calculi; Z87.891 Personal history of nicotine dependence; Z80.0 Family history of malignant neoplasm of digestive organs; Z80.3 Family history of malignant neoplasm of breast; Z56.0 Unemployment, unspecified
CPT/HCPCS: 36415; 71045; 71275; 77062; 77066; 80053; 80061; 80307; 83605; 83735; 83880; 84100; 84403; 84484; 85025; 85379; 85652; 86140; 86703; 86803; 93005; 93306; 93308; 93458; 99156; 99157; 99284; A9270-GY; G0279; J1644; J1650; J2250; J3010; Q9967

== ENCOUNTER → 2018-03-09 | Emergency (ER) | payer OTHER ==
--- NOTE | 2018-03-09 16:22 | RAD ---
INDICATION: Chest pain. COMPARISON: Comparison is made with a prior study from December 18, 2017. TECHNIQUE: Dual-energy PA views of the chest were obtained. FINDINGS: The heart is within normal limits in size. Mediastinal and hilar contours appear within normal limits. The lungs are clear. No pleural effusion is present. IMPRESSION: NO EVIDENCE FOR ACTIVE CARDIOPULMONARY DISEASE.
[2018-03-09 16:56] LABS: ABS Basophils 0 10^3/ul (0-0.2); ABS Eosinophils 0.7 10^3/ul (0-0.6); ABS Lymphocytes 1.9 10^3/ul (1.0-4.8); ABS Monocytes 0.4 10^3/ul (0-0.8); ABS Neutrophils 5.2 10^3/ul (1.5-7.7); ABS Nucleated RBC 0 10^3/ul; Eosinophil % 7.9 % (0-6); Hematocrit 40 % (42-52); Hemoglobin 13.8 g/dl (14.0-18.0); Lymphocyte % 22.9 % (25-47); Mean Corpuscular HGB Conc 34 g/dl (31-36); Mean Corpuscular Hemoglobin 30 pg (27-31); Mean Corpuscular Volume 86 fL (80-94); Mean Platelet Volume 9.4 um3 (7.4-10.4); Nucleated Red Blood Cells % 0.1; Platelet Count 190 10^3/ul (150-450); Red Blood Count 4.67 10^6/ul (4.00-5.40); Red Cell Distribution Width 14 % (10.5-15); White Blood Count 8.3 10^3/ul (3.5-10.8)
[2018-03-09 17:08] LABS: EGFR Non-African American 77.4 (>60)
--- NOTE | 2018-03-09 18:59 | ED ---
HPI Chest Pain - HPI Summary HPI Summary: Patient is a 42 y/o M BIBA w/ c/o chest pain since this morning at 0930. He states he took one nitro after onset which resolved chest pain. Chest pain returned 30 minutes later, patient took another nitro; it returned an hour later , took another nitro, 30 minutes later another episode onset which was reported to have been "very bad". He states he was [facility] and diagnosed with prinzmetal angina and SC. Patient reports that he had heart catheter at this time. He notes that he was placed on new cardiac medications recently. Patient cannot recall the name of his new medications but reports it has not been effective. He reports SOB, N/V and diaphoresis. In the room, patient is not experiencing chest pain. Patient takes ASA daily. In room, patient denies fever, chills, LLOYD, ear pain, sore throat, blurred vision, double vision, neck pain, ABD pain, back pain, dysuria, hematuria, blood in the stool, edema, bruising, rashes, anxiety, and depression. On triage, pain is rated 4/10 , nothing is noted to aggravate/alleviate Sx. Home medications and allergies are reviewed. - History of Current Complaint Chief Complaint: EDChestWallPain Hx Obtained From: Patient Onset/Duration: Started Hours Ago - onset 0930, Resolved - chest pain Timing: Intermittent Initial Severity: Moderate - 4/10 on triage Current Severity: None - pain denied in room Pain Intensity: 0 Pain Scale Used: 0-10 Numeric - 0/10 Aggravating Factor(s): Nothing Alleviating Factor(s): Nothing Associated Signs and Symptoms: Positive: Chest Pain, Shortness of Breath, Diaphoresis, Nausea, Vomiting, Other: - denies ear pain, sore throat, neck pain , dysuria, hematuria, blood in the stool, bruising, rashes, and depression. Negative: Vision Changes, Anxiety, Headaches, Fever, Chills, Back Pain, Abdominal Pain, Edema - Additional Pertinent History Primary Care Physician: [id number] - Allergy/Home Medications Allergies/Adverse Reactions: Allergies Allergy/AdvReac Type Severity Reaction Status Date / Time No Known Allergies Allergy Verified 12/18/17 08:10 Home Medications: Home Medications Diltiazem XR EXTEND Releas(NF) [Cartia XR (NF)] 120 mg PO DAILY 03/09/18 [ History Confirmed 03/09/18] Ibuprofen TAB* [Motrin TAB* 600 MG] 600 mg PO TID PRN 03/09/18 [History Confirmed 03/09/18] Isosorbide Mononitrate ER TAB* [Imdur ER TAB*] 30 mg PO DAILY 03/09/18 [History Confirmed 03/09/18] LoraTADine TAB(NF) [Claritin 10 MG TAB(NF)] 10 mg PO DAILY 03/09/18 [History Confirmed 03/09/18] Magnesium Oxide TAB* [MagOx 400 TAB*] 400 mg PO DAILY 03/09/18 [History Confirmed 03/09/18] Ranitidine TAB (NF) [Zantac TAB (NF)] 150 mg PO BID 03/09/18 [History Confirmed 03/09/18] amLODIPine TAB* [Norvasc 5 mg TAB*] 5 mg PO DAILY 03/09/18 [History Confirmed ] PMH/Surg Hx/FS Hx/Imm Hx Cardiovascular History: Reports: Hx Angina, Hx Myocardial Infarction Respiratory History: Reports: Hx Asthma Sensory History: Denies: Hx Cataracts, Hx Contacts or Glasses, Hx Eye Injury, Hx Eye Prosthesis, Hx Glaucoma, Hx Legally Blind, Hx Macular Degeneration, Hx Vision Problem, Hx Deafness, Hx Hearing Aid, Hx Hearing Problem Opthamlomology History: Denies: Hx Cataracts, Hx Contacts or Glasses, Hx Eye Injury, Hx Eye Prosthesis, Hx Glaucoma, Hx Legally Blind, Hx Macular Degeneration, Hx Vision Problem Neurological History: Denies: Hx Dementia, Hx Developmental Delay, Hx Headaches, Hx Migraine, Hx Nerve Disease, Hx Seizures, Hx Spinal Cord Injury, Hx Transient Ischemic Attacks (TIA), Other Neuro Impairments/Disorders - Cancer History Hx Chemotherapy: No Hx Radiation Therapy: No Infectious Disease History: No Infectious Disease History: Denies: Hx Clostridium Difficile, Hx Hepatitis, Hx Human Immunodeficiency Virus (HIV), Hx of Known/Suspected MRSA, Hx Shingles, Hx Tuberculosis, Hx Known/ Suspected VRE, Hx Known/Suspected VRSA, History Other Infectious Disease, Traveled Outside the [place] in Last 30 Days - Family History Known Family History: Negative: Blood Disorder - Social History Alcohol Use: None Hx Substance Use: No Substance Use Type: Reports: None Hx Tobacco Use: Yes Smoking Status (MU): Light Every Day Tobacco Smoker Type: Cigarettes Have You Smoked in the Last Year: No Review of Systems Positive: Skin Diaphoresis. Negative: Fever, Chills Positive: Other - NEGATIVE: double vision . Negative: Blurred Vision Negative: Sore Throat, Ear Ache Positive: Chest Pain Positive: Shortness Of Breath Positive: Vomiting, Nausea. Negative: Abdominal Pain Positive: other - NEGATIVE: blood in stool . Negative: dysuria, hematuria Positive: Other - NEGATIVE: neck/back pain . Negative: Edema Negative: Rash, Bruising Negative: Headache Negative: Anxious, Depressed All Other Systems Reviewed And Are Negative: No Physical Exam - Summary Physical Exam Summary: Appearance: Alert, conversive, nontoxic appearing Skin: Warm, dry, no mottling, no rashes, no contusions HEENT: EOMI, PERRL, moist mucous membranes Neck: No masses on the neck, supple Respiratory: Clear to auscultation, breath sounds present, no rales, no rhonchi , no wheezes Cardiovascular: RRR, pulses are symmetrical in both lower and upper extremities Abdomen: Soft, non-tender Bowel Sounds: Present Musculoskeletal: No CVA tenderness, no obvious deformity, moving all extremities in a grossly normal manner Neurological: A&Ox3, CN II-XII Intact, moving all extremities symmetrically Psychiatric: Normal affect and mood Triage Information Reviewed: Yes Vital Signs On Initial Exam: Initial Vitals Temp Pulse Resp BP Pulse Ox 98.5 F 70 16 120/71 95 03/09/18 15:44 03/09/18 15:44 03/09/18 15:44 03/09/18 15:44 03/09/18 15:44 Vital Signs Reviewed: Yes Diagnostics - Vital Signs Vital Signs Temp Pulse Resp BP Pulse Ox 03/09/18 15:44 98.5 F 70 16 120/71 95 - Laboratory Lab Results: Lab Results 03/09/18 03/09/18 03/09/18 Range/Units 16:45 16:45 16:45 WBC 8.3 (3.5-10.8) 10^3/ul RBC 4.67 (4.00-5.40) 10^6/ul Hgb 13.8 L (14.0-18.0) g/dl Hct 40 L (42-52) % MCV 86 (80-94) fL MCH 30 (27-31) pg MCHC 34 (31-36) g/dl RDW 14 (10.5-15) % Plt Count 190 (150-450) 10^3/ul MPV 9.4 (7.4-10.4) um3 Neut % (Auto) 63.3 (38-83) % Lymph % (Auto) 22.9 L (25-47) % Hale % (Auto) 5.4 (0-7) % Eos % (Auto) 7.9 H (0-6) % Baso % (Auto) 0.5 (0-2) % Absolute Neuts (auto) 5.2 (1.5-7.7) 10^3/ul Absolute Lymphs (auto) 1.9 (1.0-4.8) 10^3/ul Absolute Monos (auto) 0.4 (0-0.8) 10^3/ul Absolute Eos (auto) 0.7 H (0-0.6) 10^3/ul Absolute Basos (auto) 0 (0-0.2) 10^3/ul Absolute Nucleated RBC 0 10^3/ul Nucleated RBC % 0.1 D-Dimer, Quantitative < 200 (Less Than 230) ng/mL Sodium 138 (135-145) mmol/L Potassium 3.9 (3.5-5.0) mmol/L Chloride 106 (101-111) mmol/L Carbon Dioxide 27 (22-32) mmol/L Anion Gap 5 (2-11) mmol/L BUN 14 (6-24) mg/dL Creatinine 1.06 (0.67-1.17) mg/dL Est GFR ( Amer) 93.6 (>60) Est GFR (Non-Af Amer) 77.4 (>60) BUN/Creatinine Ratio 13.2 (8-20) Glucose 112 H (70-100) mg/dL Calcium 8.9 (8.6-10.3) mg/dL Magnesium 1.8 L (1.9-2.7) mg/dL Total Bilirubin 0.40 (0.2-1.0) mg/dL AST 41 H (13-39) U/L ALT 43 (7-52) U/L Alkaline Phosphatase 92 (34-104) U/L Total Protein 6.3 L (6.4-8.9) g/dL Albumin 4.1 (3.2-5.2) g/dL Globulin 2.2 (2-4) g/dL Albumin/Globulin Ratio 1.9 (1-3) TSH 1.78 (0.34-5.60) mcIU/mL Result Diagrams: 03/09/18 16:45 03/09/18 16:45 Lab Statement: Any lab studies that have been ordered have been reviewed, and results considered in the medical decision making process. - Radiology CXR Radiology Interpretation Completed By: Radiologist Summary of Radiographic Findings: no evidence for active cardiopulmonary disease , this report was reviewed by ED physician. - EKG 1650 Cardiac Rate: NL - rate of 69 BPM EKG Rhythm: Sinus Rhythm Summary of EKG Findings: normal QRS, normal QTc, normal axis, normal ST/T wave Re-Evaluation - Re-Evaluation First Eval Re-Evaluation Time: 19:40 Comment: Consult and results of labs and tests were discussed with patient, he will be discharged. Chest Pain Course/Dx - Course Course Of Treatment: Patient is a 42 y/o M BIBA w/ c/o chest pain since this morning at 0930. He states he took one nitro after onset which resolved chest pain. Chest pain returned 30 minutes later, patient took another nitro; it returned an hour later, took another nitro, 30 minutes later another episode onset which was reported to have been "very bad". He states he was at [facility] de[facility] and diagnosed with prinzmetal angina and SC. Patient reports that he had heart catheter at this time. He notes that he was placed on new cardiac medications recently. Patient cannot recall the name of his new medications but reports it has not been effective. He reports SOB, N/V and diaphoresis. In the room, patient is not experiencing chest pain. Patient takes ASA daily. Physical exam was normal. CXR showed no evidence for active cardiopulmonary disease, EKG showed sinus rhythm with rate of 69 bpm, normal QRS , normal QTc, normal axis, normal ST/T wave. Labs showed WBC 8.3, d-dimer < 200 , glucose 112, AST 41, magnesium 1.8, trop 0.37, TSH 1.78. 1934 - Dr. Rodriguez had performed the heart catheterization, Dr. Randall who was manager of administration machine stapler was consulted on patient's case. As patient's heart catheterziation in December was clean, he states patient can be safely discharged to his snf facility. This was discussed with patient. Dx of chest pain. - Diagnoses Provider Diagnoses: Chest pain - Provider Notifications Discussed Care Of Patient With: Ricardo Randall Time Discussed With Above Provider: 19:35 Instructed by Provider To: Other - 1934 - Dr. Rodriguez had performed the heart catheterization, Dr. Randall who was manager of administration machine stapler was consulted on patient 's case. As patient's heart catheterziation in December was clean, he states patient can be safely discharged to his snf facility. Discharge - Sign-Out/Discharge Documenting (check all that apply): Patient Departure - discharge - Discharge Plan Condition: Stable Disposition: HOME Patient Education Materials: Chest Pain (ED) Referrals: Aliza MONROE,Dee Silver [Primary Care Provider] - Additional Instructions: Please follow up with the correctional facility provider. return if worse or any new symptoms. Take the nitro as previously instructed. - Billing Disposition and Condition Condition: STABLE Disposition: Home - Attestation Statements Document Initiated by Quinton: Yes Documenting Scribe: Jacques Calle Provider For Whom Quinton is Documenting (Include Credential): Varsha Hammond MD Scribe Attestation: IJacques , scribed for Varsha Hammond MD on 03/12/18 at 1751. Scribe Documentation Reviewed: Yes Provider Attestation: The documentation as recorded by the Jacques burton accurately reflects the service I personally performed and the decisions made by me, Varsha Hammond MD
[2018-03-09 19:35] VITALS: BP 118/63
== END | disposition home or self-care (01) ==
LOC: ED 15:35
DX: R07.9 Chest pain, unspecified (principal); R06.02 Shortness of breath; R11.2 Nausea with vomiting, unspecified; H92.09 Otalgia, unspecified ear; J02.9 Acute pharyngitis, unspecified; F17.210 Nicotine dependence, cigarettes, uncomplicated
CPT/HCPCS: 36415; 71045; 80053; 83735; 84443; 84484; 85025; 85379; 93005; 99283

== ENCOUNTER 2018-03-21 12:26 | Inpatient (IN) | payer OTHER ==
[~2018-03-21 12:26] MED LIST: EPINEPHrine SYR 0.1MG/ML* SYRINGE ONE; Sodium Bicarbonate 8.4%* 50 ML SYRINGE ONE
[2018-03-21] MEDS ORDERED: Ticagrelor* 90 MG TAB PO ONE (12:38)
[2018-03-21] MEDS ORDERED: Heparin for STEMI(*) 5,000 UNITS/ML 1 ML VIAL IV ONE (12:38)
--- NOTE | 2018-03-21 12:38 | ED ---
HPI Cardiac - HPI Summary HPI Summary: This patient is a 42 year old male brought in by ambulance to [facility] with a chief complaint of unresponsiveness. Patient was found unresponsive with a nitro bottle at approx. 1100 in his cell. EMS arrived at 1125 and began performing CPR. EKG performed on patient shows an inferior wall RI and ST elevation. Patient was defibrillated twice. Patient was also given 6 epinephrine and 1 narcan. Patient was then intubated, at which point his CO2 levels were 29. - History of Current Complaint Stated Complaint: ABC Hx Obtained From: EMS, Medical Records Hx From Patient Unobtainable Due To: Extremis Onset/Duration: Started Minutes Ago Timing: Constant Current Severity: Severe - Additional Pertinent History Primary Care Physician: CARLOS - Allergy/Home Medications Allergies/Adverse Reactions: Allergies Allergy/AdvReac Type Severity Reaction Status Date / Time No Known Allergies Allergy Verified 12/18/17 08:10 PMH/Surg Hx/FS Hx/Imm Hx Previously Healthy: No - Level 5 Caveat: Extremis Cardiovascular History: Reports: Hx Angina, Hx Myocardial Infarction Respiratory History: Reports: Hx Asthma Sensory History: Denies: Hx Cataracts, Hx Contacts or Glasses, Hx Eye Injury, Hx Eye Prosthesis, Hx Glaucoma, Hx Legally Blind, Hx Macular Degeneration, Hx Vision Problem, Hx Deafness, Hx Hearing Aid, Hx Hearing Problem Opthamlomology History: Denies: Hx Cataracts, Hx Contacts or Glasses, Hx Eye Injury, Hx Eye Prosthesis, Hx Glaucoma, Hx Legally Blind, Hx Macular Degeneration, Hx Vision Problem Neurological History: Denies: Hx Dementia, Hx Developmental Delay, Hx Headaches, Hx Migraine, Hx Nerve Disease, Hx Seizures, Hx Spinal Cord Injury, Hx Transient Ischemic Attacks (TIA), Other Neuro Impairments/Disorders - Cancer History Hx Chemotherapy: No Hx Radiation Therapy: No Infectious Disease History: Denies: Hx Clostridium Difficile, Hx Hepatitis, Hx Human Immunodeficiency Virus (HIV), Hx of Known/Suspected MRSA, Hx Shingles, Hx Tuberculosis, Hx Known/ Suspected VRE, Hx Known/Suspected VRSA, History Other Infectious Disease - Family History Known Family History: Negative: Blood Disorder - Social History Alcohol Use: None Hx Substance Use: No Substance Use Type: Reports: None Hx Tobacco Use: Yes Smoking Status (MU): Light Every Day Tobacco Smoker Type: Cigarettes Have You Smoked in the Last Year: No Review of Systems Negative: Fever Positive: Other - cardiac arrest All Other Systems Reviewed And Are Negative: No - Comments Additional Review of Systems Comments: Level 5 Caveat: EMS Physical Exam - Summary Physical Exam Summary: VITAL SIGNS: Reviewed. GENERAL: Patient is unresponsive. Patient was intubated by EMS. HEAD AND FACE: No signs of trauma. No ecchymosis, hematomas or skull depressions. EYES: Pupils fixed and dilated MOUTH: Oral mucosa dry NECK: Supple, patient is untubated LUNGS: Decreased breath sounds. CVS: NO cardiac activity ABDOMEN: Soft no bowel sounds EXTREMITIES: No edema noted. NEURO: Unresponsive SKIN: Dry Triage Information Reviewed: No Vital Signs Reviewed: No Completion Of Physical Exam Limited Due To: Extremis, Level 5 Diagnostics - Laboratory Result Diagrams: 03/21/18 17:50 03/21/18 15:27 Lab Statement: Any lab studies that have been ordered have been reviewed, and results considered in the medical decision making process. - CT CXR CT Interpretation Completed By: Radiologist Summary of CT Findings: CXR reveals, per radiologist, IMPRESSION: 1. LINES AND TUBES ABOVE. 2. DIFFUSE AIRSPACE DISEASE THROUGHOUT BOTH LUNGS. THE DIFFERENTIAL INCLUDES PULMONARY ALVEOLAR EDEMA, INCLUDING NONCARDIOGENIC EDEMA, VERSUS DIFFUSE PNEUMONIC CONSOLIDATION. ED physician has reviewed this radiology report. - EKG 1236 Cardiac Rate: Other Rate EKG Rhythm: Atrial Fibrillation - 66 bpm Summary of EKG Findings: STEMI 1305 Cardiac Rate: Other Rate EKG Rhythm: Sinus Rhythm - 88 BPM Summary of EKG Findings: STEMI Disposition - Course Assessment/Plan: This patient is a 42 year old male brought in by ambulance to [facility] with a chief complaint of unresponsive. Patient was found unresponsive with a nitro bottle at approx. 1100 in his cell. EMS arrived at 1125 and began performing CPR. EKG performed on patient shows an inferior wall RI and ST elevation. Patient was defibrillated twice. Patient was also given 6 epinephrine and 1 narcan. Patient was then intubated, at which point his CO2 levels were 29. Initially when the patient arrived he came with the automatic compressions device. Patient was placed in a cardiac cath tech and IV check for pulses. The patient is pulseless. Continued CPR following the ACLS protocols and he was given subsequent 2 rounds of epinephrine, bicarbonate and calcium. We rechecked several times for pulses ulses and the patient continued to be pulseless. I checked cardiac activity with an ultrasound and there was no cardiac activity. Therefore we stopped all the force at 1226. However, a few minutes later the patient appeared to have a spontaneous movement of the chest. We checked for pulses again and the patient has a good and strong pulse. Immediately we obtained an IV access, and blood work was sent. The patient was placed in the ventilator, and blood pressure 70/30. Therefore the patient was given 2 L of IV fluids, I started Levophed and blood pressure is improving. At this time we perform an EKG which shows ST elevations in the inferior leads with reciprocal changes in V4 V5 and V6. Therefore I called and the STEMI alert. I discussed the case with Dr. Tang who will come and assess the patient. Meantime I also started with the cooling protocol. I discussed the case with Dr. Hanna from the ICU services and she is at bedside for assessment. Patient WAS given heparin. Blood work shows a wbc's of 13, hemoglobin 13.5 hematocrit 41 and platelet is 149. Creatinine 1.62, lactic acid 7.4, CK-MB 50.8 troponin 1.09 and BNP is 54. Chest x-ray impression: Mild congestion. At this time the patient is very critical but more stable. Dr. Tang at bedside. Patient will be admitted to Dr. Tang services. - Differential Dx - Cardiopulmonary Differential Diagnoses - Cardiopulmonary: Acute Coronary, CHF, Myocardial Infarction, Other - PEA, Unresponsive - Diagnoses Provider Diagnoses: STEMI (ST elevation myocardial infarction), Unresponsive - Physician Notifications Discussed Care Of Patient With: Misti Hanna - ICU Time Discussed With Above Provider: 12:58 - We discussed patient care with Dr. Hanna (ICU) at 1258 and they recommended admitting patient to the ICU. Instructed by Provider To: Admit As Inpatient Discharge - Sign-Out/Discharge Documenting (check all that apply): Patient Departure - Discharge Plan Condition: Stable Disposition: ADMITTED TO [facility] - Billing Disposition and Condition Condition: STABLE Disposition: Admitted to [facility] - Attestation Statements Document Initiated by Scribe: Yes Documenting Scribe: Meaghan Brown Provider For Whom Scribe is Documenting (Include Credential): Yovany Barraza MD Scribe Attestation: Meaghan Wan, scribed for Yovany Barraza MD on 03/21/18 at 1853. Scribe Documentation Reviewed: Yes Provider Attestation: The documentation as recorded by the Meaghan burton accurately reflects the service I personally performed and the decisions made by me, Yovany Barraza MD
[2018-03-21] MEDS ORDERED: NS 0.9% 1000 ML* 2,000 ML IV ONE (12:42)
[2018-03-21] MEDS ORDERED: Norepinephrine 16MCG/ML IVPRE* 4,000 MCG/250 ML BAG IV SCH ×2 (13:00→14:00)
[2018-03-21 13:03] LABS: ABS Basophils 0.1 10^3/ul (0-0.2); ABS Eosinophils 0.8 10^3/ul (0-0.6); ABS Lymphocytes 4.6 10^3/ul (1.0-4.8); ABS Monocytes 0.3 10^3/ul (0-0.8); ABS Neutrophils 7.2 10^3/ul (1.5-7.7); ABS Nucleated RBC 0 10^3/ul; Eosinophil % 6.2 % (0-6); Hematocrit 41 % (42-52); Hemoglobin 13.5 g/dl (14.0-18.0); Lymphocyte % 35.4 % (25-47); Mean Corpuscular HGB Conc 33 g/dl (31-36); Mean Corpuscular Hemoglobin 30 pg (27-31); Mean Corpuscular Volume 90 fL (80-94); Mean Platelet Volume 9.7 fL (7.4-10.4); Nucleated Red Blood Cells % 0; Platelet Count 149 10^3/ul (150-450); Red Blood Count 4.54 10^6/ul (4.00-5.40); Red Cell Distribution Width 13 % (10.5-15)
[2018-03-21] MEDS ORDERED: Iohexol 350 (CONTRAST) 200 ML MDV IV ONE (13:05)
[2018-03-21] MEDS ORDERED: Heparin 2 UNITS/ML IVPREMIX* 0 ML IV ONE (13:05)
[2018-03-21] MEDS ORDERED: Lidocaine 1% INJ* 10 MG/ML 30 ML SDV ONE (13:05)
[2018-03-21 13:11] LABS: Activated Partial Thrombo Time 38.6 seconds (26.0-36.3); INR 1.25 (0.77-1.02)
[2018-03-21] MEDS ORDERED: nitroGLYCERIN DRIP* 0 MCG/0 ML BTL ONE (13:11)
[2018-03-21 13:14] LABS: Albumin 2.9 g/dL (3.2-5.2); Albumin/Globulin Ratio 1.6 (1-3); Alkaline Phosphatase 91 U/L (34-104); BUN/Creatinine Ratio 9.3 (8-20); Blood Urea Nitrogen 15 mg/dL (6-24); CO2 Carbon Dioxide 20 mmol/L (22-32); Calcium 7.3 mg/dL (8.6-10.3); Chloride 107 mmol/L (101-111); Creatine Kinase 391 U/L (10-223); EGFR Non-African American 47.4 (>60); Globulin 1.8 g/dL (2-4); Glucose 407 mg/dL (70-100); LDL Cholesterol Direct 63 mg/dL; Sodium 138 mmol/L (135-145); Total Protein 4.7 g/dL (6.4-8.9)
[2018-03-21] MEDS ORDERED: VERAPAMIL 2.5 MG/ML 2 ML VIAL ** 5 mg/2 ml ONE ×2 (13:16→13:53)
[2018-03-21] MEDS ORDERED: Heparin(*) 1000 UNIT/ML 10 ML VIAL CATH LAB IV ONE (13:16)
[2018-03-21] MEDS ORDERED: fentaNYL* 50 MCG/ML 2 ML VIAL (100 MCG VIAL) IV SLOW PU PRN (13:19)
[2018-03-21] MEDS ORDERED: Aspirin 81 mg CHEW TAB* 81 MG TAB.CHEW ONE (13:19)
[2018-03-21] MEDS ORDERED: nitroGLYCERIN DRIP* 25,000 MCG/250 ML BTL ONE ×2 (13:20→13:22)
[2018-03-21] MEDS ORDERED: Propofol* 500 MG/50 ML BTL ONE (13:23)
[2018-03-21] MEDS ORDERED: Iodixanol* (CONTRAST) 320 MG/ML 100 ML SDV ONE (13:38)
[2018-03-21 13:44] LABS: Urine Appearance Turbid; Urine Bacteria Absent (Absent); Urine Bilirubin Negative (Negative); Urine Blood 3+ (Negative); Urine Color Amber; Urine Glucose 2+(150 mg/dL) (Negative); Urine Ketones Negative (Negative); Urine Nitrite Negative (Negative); Urine Protein 3+(>=500 mg/dL) (Negative); Urine Red Blood Cell 2+(6-10/hpf) (Absent); Urine Specific Gravity 1.016 (1.010-1.030); Urine Urobilinogen Negative (Negative); Urine White Blood Cell Trace(0-5/hpf) (Absent)
[2018-03-21] MEDS ORDERED: fentaNYL* 50 MCG/ML 2 ML VIAL (100 MCG VIAL) ONE (13:47)
[2018-03-21 13:48] LABS: Barbiturates Urine Screen None Detected (None Detect); Benzodiazepine Urine Screen None Detected (None Detect); Urine Cannabinoids Screen None Detected (None Detect)
[2018-03-21 14:13] LABS: ALT 535 U/L (7-52)
[2018-03-21 14:24] LABS: Anion Gap 11 mmol/L (2-11)
[2018-03-21 14:33] LABS: Hematocrit 45 % (42-52); Mean Corpuscular HGB Conc 33 g/dl (31-36); Mean Corpuscular Hemoglobin 29 pg (27-31); Mean Corpuscular Volume 88 fL (80-94); Mean Platelet Volume 9.5 fL (7.4-10.4); Platelet Count 205 10^3/ul (150-450); Red Blood Count 5.12 10^6/ul (4.00-5.40); Red Cell Distribution Width 13 % (10.5-15); White Blood Count 22.3 10^3/ul (3.5-10.8)
[2018-03-21] MEDS ORDERED: NS 0.9% 1000 ML* 1,000 ML IV SCH (14:45)
[2018-03-21 14:56] LABS: ABS Basophils 0.1 10^3/ul (0-0.2); ABS Eosinophils 1.1 10^3/ul (0-0.6); ABS Lymphocytes 5.4 10^3/ul (1.0-4.8); ABS Monocytes 0.2 10^3/ul (0-0.8); ABS Neutrophils 15.5 10^3/ul (1.5-7.7); ABS Nucleated RBC 0 10^3/ul; Albumin 2.9 g/dL (3.2-5.2); Albumin/Globulin Ratio 1.4 (1-3); Alkaline Phosphatase 110 U/L (34-104); BUN/Creatinine Ratio 11.9 (8-20); Blood Urea Nitrogen 16 mg/dL (6-24); CO2 Carbon Dioxide 17 mmol/L (22-32); Calcium 6.6 mg/dL (8.6-10.3); Chloride 110 mmol/L (101-111); Globulin 2.1 g/dL (2-4); Glucose 332 mg/dL (70-100); Lymphocyte % 24.1 % (25-47); Nucleated Red Blood Cells % 0.1; Sodium 136 mmol/L (135-145)
[2018-03-21 15:09] LABS: Anion Gap 9 mmol/L (2-11)
[2018-03-21 15:19] LABS: ALT 579 U/L (7-52)
[2018-03-21 16:20] LABS: Activated Partial Thrombo Time 41.6 seconds (26.0-36.3); INR 1.28 (0.77-1.02)
[2018-03-21] MEDS ORDERED: Norepinephrine 16MCG/ML IVPRE* 4,000 MCG/250 ML BAG IV ONE (17:09)
[2018-03-21] MEDS ORDERED: Propofol* 0 ML ONE (17:09)
[2018-03-21] MEDS: Chlorhexidine MOUTHWASH 0.12%* 15 ML UDC TOPICAL SCH ×3 (17:50→23:11)
[2018-03-21] MEDS: Phenylephrine INJ* 50 MG in NS 0.9% 250 ML* 245 ML IV SCH ×2 (18:00→23:11)
[2018-03-21 18:06] LABS: Hematocrit 49 % (42-52); Hemoglobin 16.5 g/dl (14.0-18.0); Mean Corpuscular HGB Conc 34 g/dl (31-36); Mean Corpuscular Hemoglobin 29 pg (27-31); Mean Corpuscular Volume 87 fL (80-94); Mean Platelet Volume 9.3 fL (7.4-10.4); Platelet Count 230 10^3/ul (150-450); Red Blood Count 5.62 10^6/ul (4.00-5.40); Red Cell Distribution Width 13 % (10.5-15); White Blood Count 19.4 10^3/ul (3.5-10.8)
[2018-03-21] MEDS: Pantoprazole IV* 40 MG IV SCH (18:15)
[2018-03-21] MEDS ORDERED: Heparin 2 UNITS/ML IVPREMIX* 1,000 ML IV ONE (19:25)
--- NOTE | 2018-03-21 19:25 | PN ---
Progress Note - Progress Note Date of Service: 03/21/18 - ICU update Note: Pt seen and examined multiple times at bedside. Pt had elevated BP in lab director, was started on Nitro drip. His BP started to drop after he arrived in ICU, Nitro drip was stopped, Propofol was stopped. He was started on IVF at 100cc/hr Rt arterial A-line was placed. He was started on Levophed and increased to 20mg. He was also started on phenylephrine which is currently at 120. His MAP is around 75 He is not responsive to painful stimuli, has spontaneous respirations CT brain is ordered and is pending Dr Cabrera and Dr Hodges at bedside, ECHO done- Decreased contractility of LV and RV with biventricular failure, no pericardial effusion MAP is acceptable at this time UO slowed slightly, currently ~30cc/hr, receiving IVF Repeat EKG showed NSR with no acute ST changes I have updated pts father Mr Arsenio Kern and discussed grim prognosis at length He is aware that we are providing best possible care at this time He verbalized understanding that his son is in critical condition Prognosis poor I have discussed with Dr Cabrera, velvet, RN at bedside Total critical care time 75 min
[2018-03-21] MEDS ORDERED: Propofol* 100 ML IV SCH (20:00)
--- NOTE | 2018-03-21 20:00 | HP ---
HISTORY AND PHYSICAL: DATE OF ADMISSION: 03/21/18 PRIMARY CARE PHYSICIAN: Patient from [facility]. SOURCE OF HISTORY: EMS documentation and ED records, review of recent visits to ED and hospitalization in December 2017 CHIEF COMPLAINT: Unresponsiveness. HISTORY OF PRESENT ILLNESS: The patient is a 42-year-old male with history of vasospastic angina, presented with non-ST elevation in December 2017, underwent coronary catheterization, was found to have no obstruction, no coronary artery disease. His symptoms were attributed to coronary vasospasm. He was subsequently discharged with amlodipine and nitroglycerin. The patient was brought in to the ED after he was found to be unresponsive in the [facility] with a nitro bottle next to him. He was found in his cell at 11:05 a.m. this morning. EMS arrived at 11:25, performed CPR. EKG showed inferior wall ME with ST elevations. The patient was defibrillated twice. He was also given 6 rounds of epinephrine and 1 of Narcan. He was intubated with CO2 levels around 29in ED. When the patient in the ED, he was found to be pulseless. CPR was continued. ACLS protocol was followed and was given subsequently 2 rounds of epinephrine, bicarbonate and calcium. He continued to be pulseless. No cardiac activity was seen on echocardiogram. Resuscitation attempts were stopped around 12:26 p.m. Few minutes later, the patient appeared to have spontaneous movements of the chest, at this time he was found to have good pulse. IV access was obtained and labs were sent. He was placed on ventilator with 100% FiO2. Blood pressure at that time was systolics in 70s. He received 2 more liters of IV fluids, blood pressure was improving. He had an EKG, a 12- lead which showed ST elevations in the inferior leads with reciprocal changes in V4, V5, and V6. STEMI alert was called at that time. Given VFib arrest and spontaneous return of circulation, code ice protocol was initiated. His blood pressure subsequently improved, did not require Levophed. He was immediately taken to cardiac laborer laboratory. The patient received heparin by that time. The patient continued to have elevated blood pressure while in laborer laboratory, he received a liter enough of fluid bolus by that time, which was stopped. He was started on nitroglycerin drip which was at one point increased up to 25. The patient's blood pressure dropped briefly while on nitro drip and drip was stopped, fluids were started back again. He then continued to have elevated blood pressure into systolics of 170. Nitro drip was restarted. He underwent cardiac catheterization with a right femoral approach. No obstruction was seen in coronaries. His urine drug screen came out to be negative. He was found to have a significantly low EF with bivetricular failure on bedside echocardiogram done by Dr. Tang. His lactic acid was elevated at 7.4. Troponin was 1.09. BNP was within normal limits. Hemoglobin was normal. Platelet count was 149, 000 initially, repeat CBC showed normal platelet count. Triple lumen ICY catheter was placed for code ice monitoring in left groin by Dr Tang. The patient subsequently was transferred to intensive care unit. His blood pressure at this time is 164/116, O2 sat 99% on 100% FiO2, heart rate of 90 beats per minute. PAST MEDICAL HISTORY: 1. History of non-ST elevation ME attributed to coronary vasospasm. 2. Asthma. 3. GERD. 4. Nasal polyps 5. History of IV drug abuse with cocaine and heroin, has been drug free for about 2 years. PAST SURGICAL HISTORY: 1. Kidney stone status post cystoscopy and lithotripsy. 2. Nasal polypectomy. ALLERGIES: No known drug allergies. FAMILY HISTORY: Throat cancer in the mother, she SOCIAL HISTORY: The patient is currently in correctional facility. As per review of medical records, he has a prior smoking history of 1 pack per day for 2 to 5 years, has cut down to 3 to 5 cigarettes. REVIEW OF SYSTEMS: Unable to obtain secondary to intubated status. PHYSICAL EXAMINATION GENERAL: The patient sedated and propofol, tachypneic. VITAL SIGNS: Temperature 33, heart rate 90 beats per minute, respiratory rate 14, blood pressure 164/116, O2 sat 99% on 100% FiO2. HEENT: Pupils are dilated bilaterally, nonreactive, ET tube and OGT in place. NECK: Supple. CARDIOVASCULAR: S1, S2 present. Tachycardic. No murmurs. ABDOMEN: Obese. Bowel sounds present. Nontender, nondistended. EXTREMITIES: No obvious cyanosis, edema, or clubbing. SKIN: Cool secondary to peripheral cooling. LABORATORY DATA: WBC count 22.3, hemoglobin 15, hematocrit 45, platelet count 205,000. INR 1.25. PTT 38.6. Sodium 138, potassium 3.9, chloride 107, bicarb 20, BUN 15, creatinine 1.62, glucose 407, lactate 7.4, calcium 7.3. Troponin 1.09, repeat pending. BNP 54. Urine drug screen negative. IMAGING: Chest x-ray performed on admission was personally reviewed by me - evidence of diffuse air space opacities bilaterally consistent with pulmonary edema, ET tube and OGT in place. EKG as described above in HPI. 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 The patient is currently in the intensive care unit being monitored closely. 1.Cardiac arrest 2.STEMI s/p cardiac cath 3.Resp failure s/p intubation 4.AMS 5. ARF 6. Labile BP with hypo and hypertension 7. Elevated LFTs 8. Elevated troponin 9. Leucocytosis with no sepsis 10. Asthma, not in exacerbation He is intubated for airway protection. The patient is having frothy pink secretions through ET tube. He might have had hypoxia for significant duration of time as per available records and had prolonged resuscitative efforts. He had chest compressions in the field and in the ED. He had ventricular fibrillation arrest and is being currently on hypothermia protocol. He underwent cardiac catheterization, evidence of coronary vasospasms with no blockage noted. Troponins are elevated, will continue to trend He has been having labile blood pressure, on and off nitro drip. Plan to give IV pushes with hydralazine as needed. His renal function shows elevated creatinine likely from hypotension. He has received contrast for cardiac cath. Will monitor closely. Urine output has been acceptable since admission. No evidence of sepsis. Elevated white count secondary to acute stress. Elevated lactic acid from hypotension, will monitor, repeat. Platelet count within normal limits. TIME SPENT: Critical care time of 60 minutes. [id number]/[facility] #: [id number] MTDOniel
--- NOTE | 2018-03-21 20:01 | PN ---
Progress Note - Progress Note Date of Service: 03/21/18 - A-line procedure note Note: Procedure: Arterial Line Placement Physician: Eddie Hanna MD Indication: Hemodynamic monitoring Anesthesia: None Procedure: A time-out was completed verifying correct patient, procedure, site, positioning. Left radial line was attempted, was unsuccessful. Patients right wrist was then prepped and draped in the usual sterile fashion. Ultrasound guidance was used to aid needle placement. A 20g Arrow arterial line was introduced into the radial artery. Catheter was threaded, and the needle was removed with appropriate blood return. Good waveform was observed. The patient tolerated the procedure well. Blood Loss: Minimal Complications: None
[2018-03-21 20:25] LABS: Magnesium 2.5 mg/dL (1.9-2.7)
[2018-03-21] MEDS ORDERED: Acetaminophen TAB* 325 MG PO PRN (20:32)
[2018-03-21] MEDS ORDERED: Acetaminophen IV 1GM/100ML * 100 ML IVPB PRN (20:34)
--- NOTE | 2018-03-21 20:42 | CONS ---
CC: Dee Abrams NP; Herminio Melendez MD CARDIOLOGY CONSULTATION: DATE OF CONSULT: 03/21/18 INDICATION FOR CONSULT: Asked emergently to see this 42-year-old white male, who had suffered cardiac arrest and was found down in his nursing home for an unknown period of time.Information is obtained via ER physician, EMS, and old chart, patient is intubated and unresponsive. HISTORY OF PRESENT ILLNESS: The patient is a 42-year-old gentleman, who is known to our institution from a hospitalization back in December 2017. He was hospitalized from 12/18/17 through 12/20/17 for a non-STEMI and was found to have normal coronary arteries with coronary artery spasm. He was placed on amlodipine and given sublingual nitroglycerin as needed and placed on aspirin and statin therapy and discharged.. Reportedly, today he was found in his cell, CPR was started. The EMS found him in pulseless electrical activity. Multiple rounds of epinephrine were given. He eventually deteriorated into VFib with CPR going, and they shocked him and gave him amiodarone. He came back to again pulseless electrical activity, was brought to the emergency room and in the emergency room, they worked on him for a prolonged period of time by ALS protocol. After pronouncing him, he developed spontaneous pulses with the rhythm and a blood pressure of 70. I was then called to see the patient. On arrival, the patient's blood pressure was still increasing despite no pressure drug support. He was already up to 110. He was oxygenating very well. Of note, there was noted to be blood coming from his ET tube and his urine was tinged with blood. He was given 4000 units of heparin in the emergency room. EKG was taken by the ambulance, it was noted to have profound ST segment elevation inferiorly with reciprocal changes suggesting inferior-posterior myocardial infarction. EKG in the emergency room revealed ST elevation still present in lead 3 and slightly in aVF, but more prominent ST segment depression in 1, aVL, and V3 through V6 suggesting the inferior-posterior ID. Of note, it seemed to be improved compared to the one from the paramedics. A repeat EKG was then obtained at my request at 13:05 and noted that there was now no ST segment elevation in the inferior leads and a definite improvement in 1 and aVL and the anterior leads, but still had sluggishly upsloping ST segments with definite ST depression suggesting posterior elevation. Given these findings, the decision was made to proceed to the cardiovascular laboratory to assess whether or not a thrombotic lesion was still present involving the inferior-posterior wall. Because of the inability to know whether the patient had aspirin, 4 baby aspirins were crushed and placed on the NG tube. PAST MEDICAL HISTORY: In reviewing the hospital record briefly, he had a past medical history of asthma as well as GERD, nasal polyps, and a history of IV drug abuse in the past with cocaine and heroin. Urinalysis has been taken and is pending at this time. PAST SURGICAL HISTORY: Included kidney stones with lithotripsy and nasal polypectomy. ALLERGIES: He had no known allergies. REVIEW OF SYSTEMS: Brief review of systems was pertinent only for the fact that in the past he denied any history of any problems with excessive bleeding, any hematuria, hematemesis or hematochezia. He had no significant renal insufficiency on laboratory results from his prior hospitalization. He at that time on arrival had a cholesterol that was normal and an LDL that was normal as well. PHYSICAL EXAM: When I saw him revealed a gentleman, who was basically not responsive. He had received no known sedation that we were aware of. Vital signs revealed a blood pressure of 110/58 with a pulse of 90. Neck was supple. I did not see any increased JVP. Carotids could not be appreciated due to breath sounds. His pupils appeared to be fixed and dilated. His lungs had coarse breath sounds bilaterally. His heart was difficult to assess. There was no significant heave or thrill present. Heart sounds were barely audible due to significant loud coarse breath sounds throughout. Abdomen was soft, nontender. Extremities without edema. Peripheral pulses were intact. Femoral pulses were present bilaterally without bruits. The patient was not moving. LABORATORY DATA: Laboratory results revealed hemoglobin and hematocrit 13.5 and 41 and platelet count of 149,000. White count 13,000. Chemistries revealed a BUN and creatinine of 15 and 1.6, glucose was 407, lactic acid came back just prior to the catheterization 7.4, total CPK 391, MB 50.8, troponin 1.09, and a total protein of 4.7, albumin 2.9. SGOT was 535. OVERALL ASSESSMENT: The patient presents now with a cardiac arrest with spontaneous return of electrical activity with development of sustainable blood pressure, not on pressor therapy. His EKG has improved somewhat, but still clearly is abnormal. At this point, we will proceed to the cardiovascular laboratory to assess for the presence of significant thrombotic disease. Given his young age, he will be cooled by Dr. Hanna, who will be the accepting physician of the patient post cardiac arrest in the intensive care unit. I will help in the management on consultation after the cardiac catheterization, especially if stent is placed, which may complicate the matter. I did discuss this with Dr. Hanna and she felt going with the drug-eluting stent would be appropriate as she thought that the bleeding from the trach tube was most likely secondary to trauma. [id number]/[facility] #: [id number] MTDD
[2018-03-21] MEDS: Norepinephrine 16MCG/ML IVPRE* 4,000 MCG/250 ML BAG IV SCH ×2 (20:45→23:12)
[2018-03-21 21:16] LABS: Magnesium 1.9 mg/dL (1.9-2.7)
[2018-03-21] MEDS: NS 0.9% 1000 ML* 1,000 ML IV SCH (21:55)
--- NOTE | 2018-03-21 22:00 | PN ---
Progress Note - Progress Note Date of Service: 03/21/18 - [facility] note Note: CT brain results reviewed with radiology. Pt with diffuse cerebral edema suggestive of anoxic injury. Continues to be hypotensive on 2 pressors, Levophed at 20 and Phenylephrine at 150 Resp and metabolic acidosis, vent settings adjusted, rpt ABG slightly improved, CO2 is normalizing Lactate still elevated however slightly better No response to painful stimuli. Pupils dilated He is on maximal support with ventilator, pressors, IVF Dr Cabrera was made aware of CT brain findings I do not see any scope for meaningful neurological recovery given neurological exam and CT brain findings Intraaortic balloon pump might not alter the outcome Will obtain neurology consultation in am to determine brain functioning Pts father Mr Arsenio Kern was contacted by me around 10:06 pm. He was informed of CT brain results. Discussed concern with anoxic encephalopathy and poor prognosis. He was thankful of update and mentioned that his daughter is next to him. He informed me that he couldnot drive tonight as he [place] in area [place] poor road conditions and decided to arrive at hospital tomorrow morning. D/w bedside RN
[2018-03-21] MEDS ORDERED: NS 0.9% 1000 ML* 1,000 ML IV ONE (22:45)
[2018-03-21] MEDS ORDERED: Vasopressin* 100 UNITS in D5W 250 ML BAG* 245 ML IVPB SCH (23:45)
[2018-03-22 02:12] LABS: Creatine Kinase 7187 U/L (10-223)
[2018-03-22] MEDS ORDERED: Magnesium Sulfate 2 GM IV (Premix) IVPB ONE (02:15)
[2018-03-22] MEDS: Norepinephrine 16MCG/ML IVPRE* 4,000 MCG/250 ML BAG IV SCH ×5 (02:47→20:58)
[2018-03-22] MEDS: Chlorhexidine MOUTHWASH 0.12%* 15 ML UDC TOPICAL SCH ×6 (02:51→20:58)
[2018-03-22] MEDS: Phenylephrine INJ* 50 MG in NS 0.9% 250 ML* 245 ML IV SCH ×4 (03:55→20:35)
[2018-03-22 05:48] LABS: INR 1.15 (0.77-1.02)
[2018-03-22 05:57] LABS: AST 765 U/L (13-39); Albumin 3.1 g/dL (3.2-5.2); Albumin/Globulin Ratio 1.5 (1-3); Alkaline Phosphatase 103 U/L (34-104); BUN/Creatinine Ratio 13.8 (8-20); Blood Urea Nitrogen 26 mg/dL (6-24); CO2 Carbon Dioxide 21 mmol/L (22-32); Calcium 6.8 mg/dL (8.6-10.3); Cholesterol 102 mg/dL; EGFR Non-African American 39.9 (>60); Globulin 2.1 g/dL (2-4); Glucose 117 mg/dL (70-100); HDL Cholesterol 36.7 mg/dL; LDL Cholesterol 51 mg/dL; Magnesium 2.4 mg/dL (1.9-2.7); Sodium 139 mmol/L (135-145); Total Protein 5.2 g/dL (6.4-8.9); Triglycerides 74 mg/dL
[2018-03-22 06:06] LABS: Anion Gap 5 mmol/L (2-11); Chloride 113 mmol/L (101-111)
[2018-03-22 06:13] LABS: ALT 529 U/L (7-52)
[2018-03-22] MEDS ORDERED: Sodium Polystyrene ORAL.SOL* 15 GM/60 ML BTL G TUBE ONE (06:30)
[2018-03-22 07:07] LABS: Hematocrit 47 % (42-52); Hemoglobin 15.7 g/dl (14.0-18.0); Mean Corpuscular HGB Conc 34 g/dl (31-36); Mean Corpuscular Hemoglobin 30 pg (27-31); Mean Corpuscular Volume 88 fL (80-94); Mean Platelet Volume 9.3 fL (7.4-10.4); Platelet Count 220 10^3/ul (150-450); Red Blood Count 5.34 10^6/ul (4.00-5.40); Red Cell Distribution Width 14 % (10.5-15); White Blood Count 12.7 10^3/ul (3.5-10.8)
[2018-03-22] MEDS: NS 0.9% 1000 ML* 1,000 ML IV SCH ×3 (07:37→19:00)
[2018-03-22] MEDS ORDERED: NS 0.9% 1000 ML* 1,000 ML IV SCH (08:45)
[2018-03-22 09:02] LABS: Potassium 6.9 mmol/L (3.5-5.0)
[2018-03-22 09:03] LABS: Creatine Kinase 6775 U/L (10-223)
[2018-03-22 11:57] LABS: Hematocrit 48 % (42-52); Hemoglobin 15.9 g/dl (14.0-18.0); Mean Corpuscular HGB Conc 33 g/dl (31-36); Mean Corpuscular Hemoglobin 29 pg (27-31); Mean Corpuscular Volume 88 fL (80-94); Platelet Count 167 10^3/ul (150-450); Red Blood Count 5.44 10^6/ul (4.00-5.40); Red Cell Distribution Width 14 % (10.5-15); White Blood Count 10.1 10^3/ul (3.5-10.8)
[2018-03-22 12:16] LABS: Albumin/Globulin Ratio 1.5 (1-3); BUN/Creatinine Ratio 16.1 (8-20); Calcium 7.1 mg/dL (8.6-10.3); EGFR Non-African American 43.7 (>60); Potassium 5.7 mmol/L (3.5-5.0); Total Bilirubin 0.5 mg/dL (0.2-1.0)
--- NOTE | 2018-03-22 12:34 | ECHO ---
Patient: LAVELLE MONTAGUE [id number] [facility] Rec#: [id number] : 1975 Date: 03/22/2018 Age: 42y Height: 183 cm / 72.0 in Weight: 80 kg / 176.3 lbs Sex: M BSA: 2.02 Room#: ICU 5 Admit Date#: 03/21/2018 Type: Inpatient Referring: Jagdish Tang MD Reading: Raul Hodges MD Repulping Supervisor: Karyna Joaquin RD,RDMS Transthoracic Echocardiogram Indication: Cardiac Arrest BP: 102/86 HR: 72 Rhythm: NSR Findings History: NSTEMI, coronary spasm, previous IVDA Technical Comments: The study quality is good. Left Ventricle: The left ventricular chamber size is normal. There is a prominent septal knuckle. Severe global hypokinesis of the left ventricle is observed. There is severely decreased left ventricular systolic function. The estimated ejection fraction is less than 20%. The assessment of diastolic function is non-diagnostic. Left Atrium: The left atrial chamber size is normal. Right Ventricle: The right ventricular cavity size is normal. The right ventricular global systolic function is severely reduced. Right Atrium: The right atrial cavity size is normal. Aortic Valve: The aortic valve is trileaflet. There is no evidence of aortic valve thickening. Systolic excursion of the aortic valve is normal. There is a trace of aortic regurgitation. There is no evidence of aortic stenosis. Mitral Valve: The mitral valve leaflets appear normal. There is mild to moderate mitral regurgitation. Tricuspid Valve: The tricuspid valve leaflets are normal. There is mild to moderate tricuspid regurgitation. There is evidence of borderline pulmonary hypertension. Pulmonic Valve: The pulmonic valve appears normal. There is a trace pulmonic regurgitation. Pericardium: There is no significant pericardial effusion. A left pleural effusion is present. Aorta: The aortic root appears normal. There is no dilatation of the aortic arch. Pulmonary Artery: The main pulmonary artery appears normal. Venous: Unable to accurately comment on the size collapsibility of the IVC as the patient in known to be on mechanical ventilation. Conclusions There is severely decreased left ventricular systolic function. The estimated ejection fraction is less than 20%. Severe global hypokinesis of the left ventricle is observed. Normal cardiac chamber sizes. There is mild to moderate mitral regurgitation. There is mild to moderate tricuspid regurgitation. There is evidence of borderline pulmonary hypertension. A left pleural effusion is present. Since the prior echocardiograms completed 12/18/17 and 12/19/17, pertinent change is prior LVEF reported 40-45%. Results discussed with the ordering physician, Dr. Tang. Measurements Name Value Normal Range RVIDd (AP) 2D 3.3 cm (0.9 - 2.6) RVDdMajor (2D) 3.8 cm (2.2 - 4.4) RAd ISD 4CH 3.9 cm (3.4 - 4.9) RA (A4C)W 4 cm (2.9 - 4.6) IVSd (2D) 1.3 cm (0.6 - 1) LVPWd (2D) 1 cm (0.6 - 1) LVIDd (2D) 5.2 cm (3.6 - 5.4) LVIDs (2D) 4.9 cm - LV FS (2D) 6 % (25 - 45) Aortic Annulus 2 cm (1.4 - 2.6) Ao root diameter (2D) 3.2 cm (2.1 - 3.5) Ascending Ao 2.7 cm (2.1 - 3.4) Aortic arch 2.9 cm (1.8 - 3.4) LA dimension (AP) 2D 3.3 cm (2.3 - 3.8) LAd ISD 4CH 5.7 cm (2.9 - 5.3) LA ISD 4CH W 4.1 cm (2.5 - 4.5) Name Value Normal Range LA ESV BP (A/L) index 24 ml/m2 - Name Value Normal Range MV E-wave Vmax 0.4 m/sec - MV deceleration time 182 msec - MV A-wave Vmax 0.2 m/sec - MV E:A ratio 2 ratio - LV septal e' Vmax 0.06 m/sec - LV lateral e' Vmax 0.04 m/sec - LV E:e' septal ratio 7 ratio - LV E:e' lateral ratio 10 ratio - Name Value Normal Range AV Vmax 0.6 m/sec - AV VTI 8 cm - AV peak gradient 1.4 mmHg - AV mean gradient 1 mmHg - LVOT Vmax 0.5 m/sec - LVOT VTI 6 cm - LVOT peak gradient 1 mmHg - LVOT mean gradient 1 mmHg - LUI Vmax 0.3 m/sec - Name Value Normal Range TR Vmax 2.6 m/sec - TR peak gradient 27 mmHg - RAP 8 mmHg - RVSP 35 mmHg - IVC diameter 2.2 cm - Name Value Normal Range PV Vmax 0.3 m/sec - PV peak gradient 0.4 mmHg -
[2018-03-22] MEDS: Pantoprazole IV* 40 MG IV SCH (14:51)
--- NOTE | 2018-03-22 15:52 | PN ---
Date of Service: 03/22/18 - [facility] note Critical Care Services: Pt seen and examined at bedside O/n events noted Labs, meds, vitals, consults reviewed 24 hr events: Pt became progressively hypotensive and was started on Vasopressin CT brain showed diffuse cerebral edema and possible herniation Off of Propofol and Fentanyl with no change in mental status Severe acidosis sec to hypotension Hyperkalemia this am Vital Signs: Temp Pulse Resp BP SpO2 FiO2 93.0 F 94 16 112/89 95 50 03/22/18 15:00 03/22/18 15:00 03/22/18 15:00 03/21/18 20:00 03/22/18 15:00 03/22 12:00 Physical Exam: Gen: Pt is intubated, no response to painful stimuli HEENT:No JVD, ETT+ Lungs: Coarse breath sounds + Cardiac: S1, S2+, tachycardic Abdomen: Soft, BS+ Extremities: Trace edema Neuro: No response to painful stimuli, pupils dilated, no gag reflex Skin: No rash Fluid Balance (Past 24 Hours): I= 5553 O= 1166 Net 4387 Intake & Output 03/20/18 03/21/18 03/22/18 03/23/18 06:59 06:59 06:59 06:59 Intake Total 5553.4 55 Output Total 1166 405 Balance 4387.4 -350 Weight 83 lb 14.4 oz 203 lb 7.787 oz Intake: IV Fluids 3885 NS (0.9%) 1785 Medicated IV 1668.4 CC - Norepinephrine/ 1029 Levophed CC - Phenylephrine/ 611 Neosynephrine CC - Vasopressin/ 28.4 Pitressin NG Tube Irrigate Amount 55 Output: Geronimo 1166 405 Labs: Laboratory Results - last 24 hr 03/21/18 03/21/18 03/21/18 12:52 15:27 15:27 WBC RBC Hgb Hct MCV MCH MCHC RDW Plt Count MPV INR (Anticoag Therapy) APTT POC Activ Clotting Time Patient Temperature ABG pH ABG pH (Temp Correct) ABG pCO2 ABG pCO2 (Temp Corrct ABG pO2 ABG pO2 (Temp Correct ABG HCO3 ABG O2 Saturation ABG Base Excess Sodium 138 Potassium TNP TNP Chloride 107 Carbon Dioxide 20 L Anion Gap 11 BUN 15 Creatinine 1.62 H Est GFR ( Amer) 57.4 Est GFR (Non-Af Amer) 47.4 BUN/Creatinine Ratio 9.3 Glucose 407 H Lactic Acid 4.6 H* Calcium 7.3 L Magnesium 2.5 Total Bilirubin 0.40 AST TNP TNP ALT 535 H Alkaline Phosphatase 91 Total Creatine Kinase 391 H CK-MB (CK-2) 50.8 H Troponin I 1.09 H* Total Protein 4.7 L Albumin 2.9 L Globulin 1.8 L Albumin/Globulin Ratio 1.6 Triglycerides Cholesterol LDL Cholesterol LDL Cholesterol Direct 63 HDL Cholesterol 03/21/18 03/21/18 03/21/18 15:55 16:32 17:50 WBC RBC Hgb Hct MCV MCH MCHC RDW Plt Count MPV INR (Anticoag Therapy) 1.28 H APTT 41.6 H POC Activ Clotting Time 148 Patient Temperature ABG pH ABG pH (Temp Correct) ABG pCO2 ABG pCO2 (Temp Corrct ABG pO2 ABG pO2 (Temp Correct ABG HCO3 ABG O2 Saturation ABG Base Excess Sodium Potassium Chloride Carbon Dioxide Anion Gap BUN Creatinine Est GFR ( Amer) Est GFR (Non-Af Amer) BUN/Creatinine Ratio Glucose Lactic Acid Calcium Magnesium 1.9 Total Bilirubin AST ALT Alkaline Phosphatase Total Creatine Kinase 5268 H CK-MB (CK-2) 853.0 H Troponin I 32.68 H* Total Protein Albumin Globulin Albumin/Globulin Ratio Triglycerides Cholesterol LDL Cholesterol LDL Cholesterol Direct HDL Cholesterol 03/21/18 03/21/18 03/21/18 17:50 17:50 19:07 WBC 19.4 H RBC 5.62 H Hgb 16.5 Hct 49 MCV 87 MCH 29 MCHC 34 RDW 13 Plt Count 230 MPV 9.3 INR (Anticoag Therapy) APTT POC Activ Clotting Time Patient Temperature ABG pH 7.11 L* ABG pH (Temp Correct) ABG pCO2 59 H ABG pCO2 (Temp Corrct ABG pO2 102 H ABG pO2 (Temp Correct ABG HCO3 15.6 L ABG O2 Saturation 97.0 ABG Base Excess -11.8 L Sodium Potassium Chloride Carbon Dioxide Anion Gap BUN Creatinine Est GFR ( Amer) Est GFR (Non-Af Amer) BUN/Creatinine Ratio Glucose Lactic Acid 4.1 H* Calcium Magnesium Total Bilirubin AST ALT Alkaline Phosphatase Total Creatine Kinase CK-MB (CK-2) Troponin I Total Protein Albumin Globulin Albumin/Globulin Ratio Triglycerides Cholesterol LDL Cholesterol LDL Cholesterol Direct HDL Cholesterol 03/21/18 03/22/18 03/22/18 20:49 01:25 05:21 WBC RBC Hgb Hct MCV MCH MCHC RDW Plt Count MPV INR (Anticoag Therapy) APTT POC Activ Clotting Time Patient Temperature 33.3 c 34c ABG pH 7.17 L* 7.19 L* ABG pH (Temp Correct) Not Reportable Not Reportable ABG pCO2 43 38 ABG pCO2 (Temp Corrct Not Reportable Not Reportable ABG pO2 92 60 L ABG pO2 (Temp Correct Not Reportable Not Reportable ABG HCO3 15.1 L 14.5 L ABG O2 Saturation 96.5 90.7 L ABG Base Excess -12.5 L -13.0 L Sodium Potassium Chloride Carbon Dioxide Anion Gap BUN Creatinine Est GFR ( Amer) Est GFR (Non-Af Amer) BUN/Creatinine Ratio Glucose Lactic Acid Calcium Magnesium Total Bilirubin AST ALT Alkaline Phosphatase Total Creatine Kinase 7187 H CK-MB (CK-2) > 298.0 H Troponin I > 82.00 H* Total Protein Albumin Globulin Albumin/Globulin Ratio Triglycerides Cholesterol LDL Cholesterol LDL Cholesterol Direct HDL Cholesterol 03/22/18 03/22/18 03/22/18 05:21 05:21 05:21 WBC 12.7 H RBC 5.34 Hgb 15.7 Hct 47 MCV 88 MCH 30 MCHC 34 RDW 14 Plt Count 220 MPV 9.3 INR (Anticoag Therapy) 1.15 H APTT POC Activ Clotting Time Patient Temperature ABG pH ABG pH (Temp Correct) ABG pCO2 ABG pCO2 (Temp Corrct ABG pO2 ABG pO2 (Temp Correct ABG HCO3 ABG O2 Saturation ABG Base Excess Sodium 139 Potassium 6.9 H* Chloride 113 H Carbon Dioxide 21 L Anion Gap 5 BUN 26 H Creatinine 1.88 H Est GFR ( Amer) 48.3 Est GFR (Non-Af Amer) 39.9 BUN/Creatinine Ratio 13.8 Glucose 117 H Lactic Acid Calcium 6.8 L Magnesium 2.4 Total Bilirubin 0.50 AST 765 H ALT 529 H Alkaline Phosphatase 103 Total Creatine Kinase 6775 H CK-MB (CK-2) 1433.0 H Troponin I > 82.00 H* Total Protein 5.2 L Albumin 3.1 L Globulin 2.1 Albumin/Globulin Ratio 1.5 Triglycerides 74 Cholesterol 102 LDL Cholesterol 51 LDL Cholesterol Direct HDL Cholesterol 36.7 03/22/18 03/22/18 03/22/18 05:21 11:45 11:45 WBC RBC Hgb Hct MCV MCH MCHC RDW Plt Count MPV INR (Anticoag Therapy) APTT POC Activ Clotting Time Patient Temperature ABG pH 7.13 L* ABG pH (Temp Correct) ABG pCO2 47 H ABG pCO2 (Temp Corrct ABG pO2 60 L ABG pO2 (Temp Correct ABG HCO3 14.0 L ABG O2 Saturation 90.3 L ABG Base Excess -13.6 L Sodium 140 Potassium 5.7 H Chloride 119 H Carbon Dioxide 17 L Anion Gap 4 BUN 28 H Creatinine 1.74 H Est GFR ( Amer) 52.8 Est GFR (Non-Af Amer) 43.7 BUN/Creatinine Ratio 16.1 Glucose 112 H Lactic Acid 3.6 H* Calcium 7.1 L Magnesium Total Bilirubin 0.50 AST 572 H ALT 455 H Alkaline Phosphatase 99 Total Creatine Kinase CK-MB (CK-2) Troponin I Total Protein 5.0 L Albumin 3.0 L Globulin 2.0 Albumin/Globulin Ratio 1.5 Triglycerides Cholesterol LDL Cholesterol LDL Cholesterol Direct HDL Cholesterol 03/22/18 03/22/18 03/22/18 11:45 11:45 12:42 WBC 10.1 RBC 5.44 H Hgb 15.9 Hct 48 MCV 88 MCH 29 MCHC 33 RDW 14 Plt Count 167 MPV 9.0 INR (Anticoag Therapy) APTT POC Activ Clotting Time 152 Patient Temperature ABG pH ABG pH (Temp Correct) ABG pCO2 ABG pCO2 (Temp Corrct ABG pO2 ABG pO2 (Temp Correct ABG HCO3 ABG O2 Saturation ABG Base Excess Sodium Potassium Chloride Carbon Dioxide Anion Gap BUN Creatinine Est GFR ( Amer) Est GFR (Non-Af Amer) BUN/Creatinine Ratio Glucose Lactic Acid 1.9 Calcium Magnesium Total Bilirubin AST ALT Alkaline Phosphatase Total Creatine Kinase CK-MB (CK-2) Troponin I Total Protein Albumin Globulin Albumin/Globulin Ratio Triglycerides Cholesterol LDL Cholesterol LDL Cholesterol Direct HDL Cholesterol Studies: CT brain: Diffuse cerebral edema suggestive of anoxic changes with possible herniation ECHO: Diffuse hypokinesis of ventricles with LVEF of 20%, mild-mod TR and MR and mild PHTN Nutrition: NPO Impression: 42 y o m with h/o IVDA, asthma, recently dx with coronary vasospasm after recent hospitalization in December and cath, brought in from correctional facility after found unresponsive with NTG bottle in his hands, had prolonged CPR for asytoly, defibrillation for V.fib, was found to have STEMI, s/p coronary angiogram, no thrombus seen, had labile BP and then hypotension sec to cardiogenic shock requiring 3 vasopressors 1. Cardiogenic shock on 3 pressors overnight 2.Hypoxic encephalopathy- Diffuse 3. Resp failure s/p intuabtion 4. STEMI s/p cath 5.Severe metabolic acidosis 6.ARF 7. Shock liver 8.Elevated troponins 9.Hyperkalemia 10. Elevated lactate Plan: 1. Neuro: Diffuse hypoxic encephalopathy. neuro consult appreciated. Prognosis poor with no chance for meaningful recovery. Will perform brain protocol tomorrow. Keep head of bed elevated. Off sedation for 24 hrs, doesnot respond to painful stimuli. Will rpt CT brain in a, 2.CVS: Cardiogenic shock on 3 pressors, just came off Phenylephrine. Will titrate Vasopressin and then Levophed if BP permits. Suspect autonomic dysfunction resulting in fluctuating BP. ECHO reviewed. EF 20% with global hypofunction. 3. Resp: On mechanical ventilatory support, small lt pl effusion. Elevated CO2 yesterday with acidosis, vent settings adjusted. Will c/w current settings. PO2 was low on ABG, FiO2 was increased. Vent bundle ordered. Nebs prn. Pulm toilet 4. ID: Leucocytosis on admission- resolved. No concern with infection 5. GI: NPO for now given high dose of pressors, GI ppx 6. Renal: UO at 30cc/hr, Cr increased today, Is receiving IVF. Hyperkalemia, received Kayexalate, no EKG changes associated, rpt potassium improved. Lactic acid normalized 7. Haem: Leucocytosis resolved. H&H stable 8. Endo: Bl sugars slightly elevated. Will monitor 9. Musculoskeletal: Frequent turning and positioning IV access: Rt radial A-line 03/21 for hemodynamic monitoring Lt femoral ICY catheter-03/21 for hypothermia and vascular access Geronimo catheter- to monitor fluid status and to prevent skin break down Family at bedside, had lengthy discussion with pts father, daughter regarding prognosis Dr Solano was also in family meeting Pts father had many questions that were answered to his satisfaction Pt is DNR, form signed by father Critical Care Time: 60 min
[2018-03-22 18:40] LABS: BUN/Creatinine Ratio 16.6 (8-20); Calcium 7.5 mg/dL (8.6-10.3); EGFR Non-African American 45.2 (>60)
[2018-03-22 19:47] LABS: Magnesium 1.9 mg/dL (1.9-2.7)
--- NOTE | 2018-03-22 21:08 | CONS ---
NEUROLOGICAL CONSULTATION: DATE OF CONSULT: 03/22/18 PATIENT OF: Dr. Hanna. HISTORY OF PRESENT ILLNESS: This is a neurological consult on this 42-year-old man who I am asked to evaluate for severe hypoxic ischemic encephalopathy. He was found in his cell at 11 in the morning following him being normal at roughly 10:30; he was unresponsive and was without a pulse. He required extensive medical resuscitation as well as CPR with numerous pressors, bicarb, and he was found to have an ID and was brought to the cardiac coreroom foundry laborer and he received cooling. He has not gained consciousness since Dr. Hanna notes that he had a couple of breaths when the respirator was stopped yesterday and did have one breath today when they briefly stopped the respirator. Otherwise, there have been no movements. The patient has not been on any sedating agents since yesterday. PAST MEDICAL HISTORY: Significant for, 1. Non-ST elevation ID attributed to coronary vasospasm. 2. Asthma. 3. GERD. 4. 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 5. He is status post nasal polyps. 6. Status post kidney stones, status post cystoscopy and lithotripsy. 7. He has had nasal polypectomy. MEDICATIONS: Currently include: 1. Fentanyl 50 mcg p.r.n. pain. 2. Levophed drip. 3. Protonix 40 mg q.24 hours. 4. Phenylephrine drip. 5. Vasopressin 250, a 100 units q. 24 hours. Even though there is propofol listed in his active meds, I double checked with his nurse and it has not been running since yesterday. ALLERGIES: He has no known drug allergies. FAMILY HISTORY: A stroke and cancer in the mother. The father apparently passed with unknown cancer. SOCIAL HISTORY: He is currently in a correctional facility. He had a prior smoking history of one pack per day to 2 to 5 years and is recently down to 3 to 5 cigarettes a day. REVIEW OF SYSTEMS: He was unable to give any review of systems. PHYSICAL EXAM: Temperature 92.8, pulse 76, respirations 16, blood pressure 116/ 85. He was comatose, dilated pupils, absent corneals, absent doll's. He had slight [id number] head movement to noxious stim in his legs but did not do anything in his arms. The respirations were checked by Dr. Hanna within the past hour or so. DIAGNOSTIC STUDIES/LAB DATA: I reviewed his CT scan, which showed diffuse edema and ischemic changes with small events and loss of quadrigeminal cistern with concern for early downward herniation. Blood gas initial one done hours after he came in at 0711: pCO2 of 59, pO2 of 102. Chemistries most recent were abnormal creatinine of 1.88, ALT of 529, AST 765, lactic acid is coming down is now 3.6. Troponin is greater than 82. UA: Specific gravity 1.016. Recent INR 1.15, PTT 41.6, white count 12.7. Normal hematocrit and platelet count. Toxicology was negative. ASSESSMENT AND PLAN: I discussed with Dr. Hanna and the family at length that he is not currently brain . He has had some occasional spontaneous respirations, but he has had significant period where he was without a pulse and then had significant hypotension and presumably hypoxemia as well. This led to direct diffuse brain injury as evidenced on the CT scan. I discussed the issues that he had lactic acidosis secondary to this and that his pH and insult is most likely worse closer to the time of his acute presentation to the ER. I think with the degree of hypoxic ischemic insult that he sustained as evidenced by his history and by his CT scan, he is not likely to survive or if he were to survive he would survive with extreme limited neurological status. However, it is just 24 hours following this and he still has some rare spontaneous respirations, it would make sense to observe him further with medical support as Dr. Hanna is doing. Dr. Hanna and I discussed this. He is at risk for a cardiac arrest in addition in the near future and if that were to happen, the family had expressed there wish that he not be further cardiac resuscitated. Dr. Montoya will be on tomorrow and will be evaluating. I discussed issues of brain or if he appeared to be still alive at some point, assessing and determining in more detail his overall neurological prognosis and how much to support him in terms of respirator. The family clearly wanted to observe him for a little longer but they understood his most grave prognosis. Thank you for sharing his case. [id number]/[facility] #: [id number] GINA
[2018-03-22] MEDS: Vasopressin* 100 UNITS in D5W 250 ML BAG* 245 ML IVPB SCH (22:00)
[2018-03-23] MEDS: Phenylephrine INJ* 50 MG in NS 0.9% 250 ML* 245 ML IV SCH ×6 (00:53→20:29)
--- NOTE | 2018-03-23 02:02 | CATH ---
CC: Dr. Herminio Melendez; Dee Abrams NP * CARDIAC CATHETERIZATION REPORT: DATE OF PROCEDURE: 03/21/18 - ROOM #ICU-05 INDICATION FOR THIS PROCEDURE: The patient presents with cardiac arrest and EKGs were suggesting ST segment elevation inferior posterior wall myocardial infarction. PROCEDURE: Coronary arteriography, left heart catheterization, left ventriculography. An intravenous cooling catheter was placed in the left femoral vein into the inferior vena cava. The patient was examined in the emergency room. The patient was already intubated and not responsive and unable to get any history. All history was obtained from the emergency room physician, EMS, and medical records. Given the patient's young age and the EKG with documented changes suggesting acute infarct, decision was made to proceed to the cardiac catheterization laboratory. THE APPROACH TAKEN: Initial attempts were made via right radial artery under ultrasound guidance. These were unable to be cannulated due to radial artery spasm and right groin approach was utilized. EQUIPMENT UTILIZED: 1. Right femoral artery sheath, a 6.5-[employer] Merit Prelude sheath. 2. Diagnostic coronary catheters, a 5-[employer] Helenian FL4 and a 5-[employer] Helenian FR4 curved catheter. 3. Diagnostic guidewire was a J-tipped of regular length guidewire. 4. Left heart catheterization, catheter was a 5-[employer] Helenian angled pigtail catheter. 5. A 6-St Helenian sheath exchange for 7-St Helenian sheath due to groin oozing. PROCEDURE: The patient was brought to the cardiac cardiac cath lab manager where formal time- out was performed. He was prepped and draped in a sterile fashion. Initial attempts were made to cannulate the right radial artery and aborted due to radial artery spasm. The right femoral artery area was anesthetized with 1% lidocaine. The right femoral artery was cannulated with an anterior wall stick. The 6-St Helenian sheath was placed. Coronary arteriography was performed. Left heart catheterization was then performed and left ventriculography was performed utilizing a total of 24 cc of Visipaque dye at a rate of 12 cc per second. Following this because of oozing at the 6-St Helenian sheath, this was exchanged for a 7- [employer] Helenian sheath. The oozing stopped on placement of the 7- [employer] Helenian sheath. It was sutured in place. A pressure bag was placed to it as well. The total contrast used was 85 cc of Visipaque dye. The radiation exposure was 3.9 minutes of fluoro time. The air kerma radiation was 674 milligray. The DAP radiation was 4589 microgray per meter squared. At the end of the case also, the left femoral vein was cannulated and a catheter was placed for internal cooling at the request of Dr. Misti Hanna, the certified adapted physical educator. RESULTS: HEMODYNAMIC DATA: Left heart catheterization - ascending aortic pressure was recorded at 120/ 92 with a mean of 105. Left ventricular pressure 122 over left ventricular end- diastolic pressure of 12 to 15. LEFT VENTRICULOGRAPHY: Performed in the YANG projection - revealed severe global left ventricular hypokinesis, overall EF 25%. There appeared to be moderate mitral regurgitation identified. CORONARY ARTERIOGRAPHY: A. Left coronary artery: 1. Left main - widely patent. 2. Left anterior descending artery - in general, the left anterior descending arteries appeared to be somewhat smaller in caliber due to global spasm. This was reversed with nitroglycerin intracoronary. Supplying a first and second bifurcating diagonal branch and the third diagonal branch extending to the apical region on to the distal inferior wall. No significant obstruction was seen throughout its course. 3. Circumflex artery - a nondominant vessel supplying a high bifurcating first obtuse marginal branch followed by multiple obtuse marginal branches ending in the low lying moderate size obtuse marginal branch. There was no significant stenosis seen throughout the course of the vessel. B. Right coronary artery - a dominant vessel supplying the PDA and two posterior left ventricular branches. Of note, there was coronary artery spasm in the proximal segment with narrowing of 55% to 60% seen, which improved with intracoronary nitroglycerin. No focal stenosis was seen. OVERALL ASSESSMENT: No significant focal stenotic coronary artery disease with global severe left ventricular systolic dysfunction with moderate mitral regurgitation. This information was shared with Dr. Misti Hanna, the admitting certified adapted physical educator, to help with further management. At this point in time, generalized support will be maintained and hypothermia protocol per Dr. Hanna. [id number]/[facility] #: [id number] [facility]
--- NOTE | 2018-03-23 02:02 | PN ---
PROGRESS NOTE: DATE OF PROGRESS NOTE: 03/21/18 REVIEW OF HOSPITAL RECORDS: Specifically focusing on last presentation to the hospital on 03/09/18, emergency room visit. During that time, information revealed that the patient's medications had been increased after discharge from the initial hospitalization from 12/18/17 to 12/20/17. When he presented to the emergency room on 03/09/18, he was noted now to be noted to be on diltiazem XR extend tab 120 mg a day in addition to isosorbide mononitrate 30 mg a day both of which were new from discharge. He was on amlodipine on discharge 2.5 mg and that was increased to 5 mg. Other medications had included loratadine 10 mg daily, mag oxide 400 mg daily. It was stated within the report by the emergency room physician that the patient also takes an aspirin daily, also listed on his medication was ibuprofen p.r.n. 600 mg t.i.d. Within records from outside facilities that were scanned into the medical records of that March 09 emergency room visit, they included an echocardiogram done on 02/09/18 which showed normal left ventricular systolic function with normal mitral, tricuspid, and aortic valve. A cardiac stress echo apparently was done. There is only a hand written report regarding a stress echo from 10/07/17 which would have been even prior to his non-STEMI that reportedly was negative for ischemia or arrhythmia to 12 minutes of a full Tani protocol. During the emergency room visit on 03/09/18, the patient's blood test revealed a troponin of 0.37. The chest discomfort resolved in the emergency room. Reported the EKG showed no acute ST-T wave changes. Discussion was had with the on-call blender/braze applicator and decision was made to release the patient back to the facility from which he came. [id number]/[facility] #: [id number] GINA
[2018-03-23] MEDS: Chlorhexidine MOUTHWASH 0.12%* 15 ML UDC TOPICAL SCH ×6 (02:15→22:06)
--- NOTE | 2018-03-23 02:19 | PN ---
PROGRESS NOTE: DATE OF PROGRESS NOTE: 03/22/18 SUBJECTIVE: The patient is currently obtunded with no purposeful movement. He is on pressor support for his blood pressure with multiple pressor agents. He is status post cardiac arrest found as an unwitnessed arrest with downtime unknown with CPR performed in the field for an hour and 20 minutes approximately with CPR performed in the emergency room for an hour with initial pronouncement of the patient only to have return of pulse. He went to the cardiovascular laboratory because of the presence of an acute ST segment elevation, inferior posterior wall myocardial infarction from the EMS as well as presentation, EKG in the emergency room. Cardiac catheterization had documented no significant stenotic coronary artery disease. The patient has a history of coronary artery spasm and had spasm of the proximal right coronary artery with catheter induced. Over the course of the current hospitalization, he has not had any return of purposeful motion, movement or any degree of neurological signs suggesting return of purposeful neurological means. The patient underwent a CT scan which showed diffuse hypodensity throughout the entire brain with loss of doshi matter differentiating suggesting global hypoxic injury and infarction with associated diffuse edema probable central downward herniation and compression of bilateral ventricles. There was near complete opacification of all sinuses with mild hyperdense fluid raising the question hemorrhage within the sinuses versus inspissated secretions or sequelae of intubation. PHYSICAL EXAMINATION: The patient's blood pressure is found to be 105/80 with a pulse in the 70s to 80s, respirations are 16 to 20, O2 saturations 98% on 50% oxygen. Core temperature is 93 per cooling protocol. Neck is supple. No obvious increased JVP. Chest has coarse breath sounds bilaterally. Heart is quite distant in nature. Heart sounds in generally are difficult to appreciate. There is a question of a faint systolic murmur. Abdomen is soft, nontender. Extremities without clubbing, cyanosis, or edema. LABORATORY RESULTS: Reveal a hemoglobin/hematocrit of 15.7/47 with a white count 12,700, platelet count of 220,000. Sodium 139, potassium initially 6.9 ( already being treated by Dr. Hanna), chloride 113, bicarb 21, BUN and creatinine of 26 and 1.88. SGOT 165, SGPT 529. The following CPK initially 391 to 5268 to 7187 down to 6775 from this morning. His MB was 50.8 on presentation, 853 was the second one greater than 298, the current one from this morning is pending. Troponins were 1.09, in the emergency room 32.68 followed by greater than 82 and greater than 82 respectively. EKG today shows normal sinus rhythm, heart rate 74, a nonspecific intraventricular conduction delay. There is low voltage present in the limb leads. There were no acute ST- T wave changes. Repeat echocardiogram (unofficially as the official report has not been interpreted) revealed global left ventricular systolic dysfunction of both the right and left ventricle with [id number]-ko-[id number] mitral regurgitation and mild-to- moderate tricuspid regurgitation. Overall EF of left ventricle appears to be 20 % at best. OVERALL ASSESSMENT: Babar now is day 2 from his unwitnessed cardiac arrest. His CT scan of the head gives a generalized poor prognosis. At this point, Neurology is being consulted for their opinion. We will await their consultation. He is off of all sedation medication, but he is on the cooling protocol. We will plan to discontinue the right femoral artery sheath today if Neurology feels that overall prognosis is extremely poor and would recommend no further aggressive measures. Dr. Hanna has been in contact with the patient's family to discuss all of this today and they were reportedly coming in today. For now, we continue with a current therapy. Given his overall severe left ventricular systolic dysfunction of both ventricles, I would think overall prognosis is grim in general. [id number]/[facility] #: [id number] GINA
[2018-03-23] MEDS: Norepinephrine 16MCG/ML IVPRE* 4,000 MCG/250 ML BAG IV SCH ×4 (04:09→22:07)
[2018-03-23 06:12] LABS: BUN/Creatinine Ratio 16.7 (8-20); Blood Urea Nitrogen 26 mg/dL (6-24); CO2 Carbon Dioxide 19 mmol/L (22-32); Calcium 7.7 mg/dL (8.6-10.3); EGFR Non-African American 49.5 (>60); Glucose 100 mg/dL (70-100); Sodium 142 mmol/L (135-145)
[2018-03-23 06:27] LABS: Anion Gap 1 mmol/L (2-11); Chloride 122 mmol/L (101-111); Potassium 5.4 mmol/L (3.5-5.0)
[2018-03-23 06:28] LABS: Creatine Kinase 3163 U/L (10-223)
[2018-03-23] MEDS: Vasopressin* 100 UNITS in D5W 250 ML BAG* 245 ML IVPB SCH ×2 (09:06→23:25)
[2018-03-23] MEDS ORDERED: Albuterol 2.5 MG/3 ML NEB.SOL* (0.083%) INH ONE (13:16)
[2018-03-23] MEDS ORDERED: Furosemide IV* 10 MG/ML VIAL (40 MG) IV ONE (14:09)
--- NOTE | 2018-03-23 14:09 | PN ---
Date of Service: 03/23/18 - [facility] note Critical Care Services: Pt seen and examined at bedside. Overnight events, labs, vitals, meds reviewed Plan of care was discussed in interdisciplinary rounds Vital Signs: Temp Pulse Resp BP SpO2 FiO2 96.8 F 93 14 99/78 98 40 03/23/18 13:01 03/23/18 13:21 03/23/18 13:21 03/23/18 13:00 03/23/18 13:21 03/23 13:21 Physical Exam: Gen: Pt in bed HEENT: Dilated pupils, sluggishly reactive on right side Lungs: Coarse breath sounds + Cardiac: S1, S2+, tachycardic Abdomen: Soft, BS diminished Extremities: Edema+ Neuro: In coma, unresponsive to painful stimuli Fluid Balance (Past 24 Hours): I= 5599 J=7868 Net 3109 Intake & Output 03/21/18 03/22/18 03/23/18 03/24/18 06:59 06:59 06:59 06:59 Intake Total 5553.4 5599.8 Output Total 1166 2490 1625 Balance 4387.4 3109.8 -1625 Weight 83 lb 14.4 oz 199 lb 1.239 oz Intake: IV Fluids 3885 3883 NS (0.9%) 1785 3883 Medicated IV 1668.4 1661.8 CC - Norepinephrine/ 1029 1079 Levophed CC - Phenylephrine/ 611 511 Neosynephrine CC - Vasopressin/ 28.4 71.8 Pitressin NG Tube Irrigate Amount 55 Output: G Tube 500 Geronimo 1166 2490 1125 Labs: Laboratory Results - last 24 hr 03/22/18 03/22/18 03/22/18 12:42 18:00 18:00 POC Activ Clotting Time 152 ABG pH 7.15 L* ABG pCO2 50 H ABG pO2 89 ABG HCO3 15.7 L ABG O2 Saturation 96.9 ABG Base Excess -11.7 L Sodium 139 Potassium 6.0 H Chloride 118 H Carbon Dioxide 19 L Anion Gap 2 BUN 28 H Creatinine 1.69 H Est GFR ( Amer) 54.7 Est GFR (Non-Af Amer) 45.2 BUN/Creatinine Ratio 16.6 Glucose 104 H Calcium 7.5 L Magnesium 1.9 Total Creatine Kinase CK-MB (CK-2) Troponin I 03/23/18 05:30 POC Activ Clotting Time ABG pH ABG pCO2 ABG pO2 ABG HCO3 ABG O2 Saturation ABG Base Excess Sodium 142 Potassium 5.4 H Chloride 122 H Carbon Dioxide 19 L Anion Gap 1 L BUN 26 H Creatinine 1.56 H Est GFR ( Amer) 59.9 Est GFR (Non-Af Amer) 49.5 BUN/Creatinine Ratio 16.7 Glucose 100 Calcium 7.7 L Magnesium Total Creatine Kinase 3163 H CK-MB (CK-2) > 298.0 H Troponin I 32.81 H* Studies: CT brain: Diffuse cerebral edema suggestive of anoxic changes with possible herniation EKG: Sinus rhythm, no acute ST changes ECHO: Diffuse hypokinesis of ventricles with LVEF of 20%, mild-mod TR and MR and mild PHTN Impression: 42 y o m with h/o IVDA, asthma, recently dx with coronary vasospasm after recent hospitalization in December and cath, brought in from correctional facility after found unresponsive with NTG bottle in his hands, had prolonged CPR for asytoly, defibrillation for V.fib, was found to have STEMI, s/p coronary angiogram, no thrombus seen, had labile BP and then hypotension sec to cardiogenic shock with labile BP 1. Cardiogenic shock 2.Hypoxic encephalopathy- Diffuse 3. Resp failure s/p intubation 4. STEMI s/p cath with coronary vasospasm 5.Severe metabolic acidosis and resp acidosis 6.ARF 7. Shock liver 8.Coma Plan: 1. Neuro: Diffuse hypoxic encephalopathy. Pt is in Coma, no response to painful stimuli. No spontaneous respirations on ventilator. neuro f/u appreciated. Prognosis poor with no chance for meaningful recovery. Rewarming phase, having difficulty warming to goal temperature. Keep head of bed elevated. 2.CVS: Cardiogenic shock, labile BP likely secondary to autonomic neuropathy. Requiring vasopressor support. ECHO - EF 20% with global hypofunction. Cardiology f/u appreciated 3. Resp: On mechanical ventilatory support, small lt pl effusion. Continues to have elevated CO2 and severe acidosis, inspite of vent settings being adjusted and maximal support. No spontaneous respirations this am when vent support was paused t check for spontaneous breathing. No gag reflex with suctioning attempt. Vent bundle ordered. Had wheeze earlier, walter given. Will administer dose of Lasix. Pulm toilet 4. ID: Leucocytosis on admission- resolved. No concern with infection. no need for abx 5. GI: NPO for now given high dose of pressors, had 500cc of dark secretions through OGT, will place on low intermittent suctioning. GI ppx 6. Renal: UO at 30cc/hr, Cr high, Will give dose of Lasix. Is receiving IVF at 75cc/hr. Hyperkalemia- improving. Lactic acid normalized 7. Haem: Leucocytosis resolved. H&H stable 8. Endo: Bl sugars slightly elevated. Will monitor 9. Musculoskeletal: Frequent turning and positioning IV access: Rt radial A-line 03/21 for hemodynamic monitoring Lt femoral ICY catheter-03/21 for hypothermia and vascular access Geronimo catheter- to monitor fluid status and to prevent skin break down Had family meeting with myself and neurologist Dr Montoya. Pts father Arsenio Kern and his sister were present. Reviewed neurological exam findings and CT brain. Discussed lack of hope for meaningful recovery. Pts father and sister expressed that pt didnot want to live with poor qualify of life, didnot want to be bedridden and on machine support. They are aware that formal brain protocol couldnot be performed until 72 hrs after rewarming. Pt`s family has requested to have life support discontinued. Pt is DNR, possible terminal extubation when rest of family members arrive Critical Care Time: 30 min
[2018-03-23] MEDS: Pantoprazole IV* 40 MG IV SCH (14:14)
[2018-03-23 14:18] LABS: Albumin 2.7 g/dL (3.2-5.2); Albumin/Globulin Ratio 1.4 (1-3); BUN/Creatinine Ratio 15.6 (8-20); Calcium 8.1 mg/dL (8.6-10.3); EGFR Non-African American 50.3 (>60); Globulin 1.9 g/dL (2-4); Magnesium 1.8 mg/dL (1.9-2.7); Total Bilirubin 0.6 mg/dL (0.2-1.0); Total Protein 4.6 g/dL (6.4-8.9)
[2018-03-23 14:26] LABS: Potassium 5.4 mmol/L (3.5-5.0)
[2018-03-23] MEDS: NS 0.9% 1000 ML* 1,000 ML IV SCH (14:55)
[2018-03-23] MEDS: Albuterol 2.5 MG/3 ML NEB.SOL* (0.083%) INH SCH ×3 (15:07→22:50)
[2018-03-23 15:50] LABS: Hematocrit 43 % (42-52); Hemoglobin 14.7 g/dl (14.0-18.0); Mean Corpuscular HGB Conc 34 g/dl (31-36); Mean Corpuscular Hemoglobin 30 pg (27-31); Mean Corpuscular Volume 87 fL (80-94); Mean Platelet Volume 9.4 fL (7.4-10.4); Platelet Count 124 10^3/ul (150-450); Red Blood Count 4.99 10^6/ul (4.00-5.40); Red Cell Distribution Width 14 % (10.5-15); White Blood Count 8.7 10^3/ul (3.5-10.8)
[2018-03-23] MEDS ORDERED: Zosyn per Pharmacy* NOTE FOLLOW UP PRN (16:13)
[2018-03-23] MEDS ORDERED: ZOSYN 3.375 GM x ONE DOSE over 30 miuntes IVPB ×2 (16:30)
[2018-03-23 17:59] LABS: Urine Appearance Clear; Urine Bacteria Absent (Absent); Urine Bilirubin Negative (Negative); Urine Blood 1+ (Negative); Urine Color Yellow; Urine Glucose Negative (Negative); Urine Ketones Negative (Negative); Urine Nitrite Negative (Negative); Urine Protein Negative (Negative); Urine Red Blood Cell Absent (Absent); Urine Specific Gravity 1.006 (1.010-1.030); Urine Urobilinogen Negative (Negative); Urine White Blood Cell Trace(0-5/hpf) (Absent)
[2018-03-23 18:28] LABS: Activated Partial Thrombo Time 31.6 seconds (26.0-36.3); INR 1.59 (0.77-1.02)
[2018-03-23 18:35] LABS: Amylase 68 U/L (29-103)
[2018-03-23 19:04] LABS: LDH 847 U/L (140-271)
[2018-03-23] MEDS: NS 0.9% IVPB SCH (19:22)
[2018-03-23] MEDS: DESMOPRESSIN ACETATE IVPB SCH (19:22)
[2018-03-23] MEDS: Piperacillin/Tazobac ADVAN(*) 3.375 GM in NS 0.9% 100 ML* 100 ML IVPB SCH (21:03)
[2018-03-23 23:55] LABS: ABS Basophils 0 10^3/ul (0-0.2); ABS Eosinophils 1.1 10^3/ul (0-0.6); ABS Lymphocytes 1.1 10^3/ul (1.0-4.8); ABS Monocytes 0.5 10^3/ul (0-0.8); ABS Neutrophils 7.4 10^3/ul (1.5-7.7); ABS Nucleated RBC 0 10^3/ul; Eosinophil % 10.6 % (0-6); Hematocrit 40 % (42-52); Hemoglobin 13.4 g/dl (14.0-18.0); Mean Corpuscular HGB Conc 34 g/dl (31-36); Mean Corpuscular Hemoglobin 29 pg (27-31); Mean Corpuscular Volume 87 fL (80-94); Mean Platelet Volume 9.3 fL (7.4-10.4); Nucleated Red Blood Cells % 0; Platelet Count 121 10^3/ul (150-450); Red Blood Count 4.57 10^6/ul (4.00-5.40); Red Cell Distribution Width 14 % (10.5-15)
[2018-03-24 00:06] LABS: Activated Partial Thrombo Time 33.1 seconds (26.0-36.3); INR 1.65 (0.77-1.02)
[2018-03-24] MEDS: Chlorhexidine MOUTHWASH 0.12%* 15 ML UDC TOPICAL SCH ×13 (00:09→22:54)
[2018-03-24 00:12] LABS: Albumin 2.8 g/dL (3.2-5.2); Albumin/Globulin Ratio 1.4 (1-3); Calcium 8.3 mg/dL (8.6-10.3); EGFR Non-African American 47.8 (>60); Indirect Bilirubin 0.6 mg/dL (0.3-1.0); Magnesium 1.4 mg/dL (1.9-2.7); Potassium 4.5 mmol/L (3.5-5.0); Total Bilirubin 0.9 mg/dL (0.2-1.0); Total Protein 4.8 g/dL (6.4-8.9)
[2018-03-24] MEDS: Phenylephrine INJ* 50 MG in NS 0.9% 250 ML* 245 ML IV SCH ×6 (00:42→21:51)
--- NOTE | 2018-03-24 02:58 | PN ---
NEUROLOGY PROGRESS NOTE: DATE OF SERVICE: 03/23/18 DATE OF ADMISSION: 03/21/18 PRIMARY PROVIDER: Misti Hanna MD. CHIEF COMPLAINT: The patient is intubated. BRIEF REVIEW OF THE MEDICAL HISTORY: The patient is a 42-year-old man who was incarcerated, who presented with non-ST segment elevation in December 2017, who underwent coronary catheterization, found that he has no coronary artery disease. It was felt that his symptoms at that time were due to coronary vasospasm. The patient was found in his cell down, unresponsive, at 11:05 a.m. on 03/21/18. He was reported to be last known well at 10:00 a.m. that morning. The patient was found with a bottle of nitroglycerin. He had resuscitation. He was found pulseless in the ER. CPR was continued. He was deemed at 12: 26 p.m. and resuscitation was discontinued that time. However, a few minutes later, the patient appeared to have spontaneous movement of his chest. This is where there was a resumption of the resuscitation. The patient had returned to spontaneous circulation after at least an hour of CPR. He was started on Levophed and placed on therapeutic hypothermia. He was admitted to the ICU. He was evaluated by Dr. Solano on 03/22/18. The patient was diagnosed with severe hypoxic ischemic encephalopathy. Given that he was on therapeutic hypothermia, brain testing was not performed. I reviewed Dr. Solano's evaluation. The patient had a CT head without contrast completed on 03/21/18 that showed evidence of diffuse hypodensity throughout the brain with loss of licona white matter differentiation, suggestive of global severe anoxic injury and infarction with associated diffuse edema. He has subfalcine herniation and transtentorial herniation bilaterally. Yesterday, the patient was able to take one or two breaths spontaneously off the ventilator. However, the patient is not breathing over the ventilator any longer. REVIEW OF SYSTEMS: Unable to perform a review of systems due to intubation. MEDICATIONS: 1. Acetaminophen 650 mg p.o. every 4 hours as needed for temperature greater than 34 degrees Celsius. 2. Chlorhexidine 15 mL topical every 4 hours scheduled. 3. Fentanyl 50 mcg IV slowly as needed for pain. 4. Levophed. 5. Pantoprazole 40 mg IV every 24 hours. 6. Phenylephrine The patient has not received any sedation since the hospitalization. PHYSICAL EXAMINATION: Vitals: Temperature 95.7, heart rate of 86, respiratory rate of 14, oxygen saturation 98%, blood pressure 101/76. General: Critically ill- appearing man, in no acute distress. He is intubated. Head: Normo- cephalic without obvious abnormalities. Eyes: Conjunctivae/corneas are clear. Neck is supple. No carotid bruits. Lungs are clear to auscultation bilaterally. Cardiovascular: Regular rate and rhythm. Normal S1, S2. Extremities: No hammertoes or high arches. Neurological Examination: Mental status: The patient is comatose and does not awake to verbal or noxious stimuli. GCS 40. Cranial nerves: Anisocoria with fixed unreactive pupils measuring 6 mm on the left and 5 mm on the right. Absent corneal reflex. Absent gag reflex. Absent Doll's sign. No facial asymmetry. Motor: The patient has some stimulus-induced head movements from right to left. He also had slight extension of the upper extremities bilaterally to noxious stimuli proximally and distally. He had no movement to noxious stimuli in the lower extremity. Reflexes absent throughout. Sensation unable to perform. The patient does not localize to pain. Coordination not applicable. Gait and station not applicable. LABORATORY DATA: WBC 10, hemoglobin 15, hematocrit 48, platelet count 176,000. Sodium 142, potassium 5.4, creatinine 1.56, troponin 32. ASSESSMENT: Mr. Babar Kern is a 42-year-old man with severe hypoxic ischemic encephalopathy, cerebral edema, transtentorial and subfalcine herniation - this was presumably related to cardiopulmonary arrest. The patient 's overall prognosis is poor. He does not meet criteria for brain testing as the patient underwent therapeutic hypothermia and we would need to wait at least 72 hours post re-warming. However, after a long discussion with the patient's father and sister at bedside today, the decision was made to withdraw care. This is an appropriate decision as the patient, if he survives this injury, will persist with severe disability given the duration of how long he was down for and the findings on radiological testing. Plus, the patient has not peaked in regards to the cerebral edema and, therefore, can progress to brain . I discussed these findings with the patient's family members at bedside. TIME SPENT: I spent a total of 35 critical care minutes reviewing the medical chart, obtaining history, examining the patient, reviewing the imaging with the patient's family, and discussing the treatment plan and prognosis as mentioned above. [id number]/[facility] #: [id number] MTDD
[2018-03-24] MEDS: Albuterol 2.5 MG/3 ML NEB.SOL* (0.083%) INH SCH ×6 (03:08→22:54)
[2018-03-24 04:36] LABS: Amylase 71 U/L (29-103)
[2018-03-24] MEDS: Norepinephrine 16MCG/ML IVPRE* 4,000 MCG/250 ML BAG IV SCH ×5 (04:37→20:32)
[2018-03-24] MEDS: Piperacillin/Tazobac ADVAN(*) 3.375 GM in NS 0.9% 100 ML* 100 ML IVPB SCH ×3 (04:50→20:55)
[2018-03-24 05:47] LABS: ABS Basophils 0 10^3/ul (0-0.2); ABS Eosinophils 0.5 10^3/ul (0-0.6); ABS Monocytes 0.5 10^3/ul (0-0.8); ABS Neutrophils 7.3 10^3/ul (1.5-7.7); ABS Nucleated RBC 0 10^3/ul; Eosinophil % 5.7 % (0-6); Hematocrit 38 % (42-52); Hemoglobin 12.9 g/dl (14.0-18.0); Lymphocyte % 10.3 % (25-47); Mean Corpuscular HGB Conc 34 g/dl (31-36); Mean Corpuscular Hemoglobin 30 pg (27-31); Mean Corpuscular Volume 87 fL (80-94); Mean Platelet Volume 9.7 fL (7.4-10.4); Nucleated Red Blood Cells % 0; Platelet Count 120 10^3/ul (150-450); Red Blood Count 4.37 10^6/ul (4.00-5.40); Red Cell Distribution Width 14 % (10.5-15); White Blood Count 9.3 10^3/ul (3.5-10.8)
[2018-03-24 05:55] LABS: Activated Partial Thrombo Time 28.8 seconds (26.0-36.3); INR 1.62 (0.77-1.02)
[2018-03-24 06:07] LABS: Potassium 4.6 mmol/L (3.5-5.0)
[2018-03-24] MEDS: NS 0.9% IVPB SCH ×2 (06:21→18:42)
[2018-03-24] MEDS: DESMOPRESSIN ACETATE IVPB SCH ×2 (06:21→18:42)
[2018-03-24 06:45] LABS: Albumin 2.7 g/dL (3.2-5.2); Albumin/Globulin Ratio 1.3 (1-3); BUN/Creatinine Ratio 13.8 (8-20); Calcium 8.2 mg/dL (8.6-10.3); Globulin 2.1 g/dL (2-4); Magnesium 1.4 mg/dL (1.9-2.7); Total Bilirubin 0.9 mg/dL (0.2-1.0); Total Protein 4.8 g/dL (6.4-8.9)
[2018-03-24] MEDS ORDERED: Vasopressin* 100 UNITS in D5W 250 ML BAG* 245 ML IVPB SCH (08:00)
--- NOTE | 2018-03-24 10:52 | PN ---
Subjective Date of Service: 03/24/18 Length of Stay: 3 Days Neurology is following Mr. Kern for the evaluation of hypoxic-ischemic encephalopathy. Interval History: There has been no reported change in his neurological assessment overnight. He continues to have intermittent, stimulus induced movements of the neck and proximal upper extremity to pain. Discussed the case with Dr. Hanna. The patient has no spontaneous breathing. Rewarming was initiated yesterday. Review of Systems: Denied CP, SOB, or palpitations. Objective Active Medications: Acetaminophen (Tylenol Tab*) 650 mg PO Q4H PRN PRN Reason: TEMP > 34*C Albuterol (Ventolin 2.5 Mg/3 Ml Neb.Andree*) 2.5 mg INH [id number] AWAKE DONELL Last Admin: 03/24/18 07:48 Dose: 2.5 mg Chlorhexidine Gluconate (Peridex Mouth Wash 0.12%*) 15 ml TOPICAL Q2H DONELL Last Admin: 03/24/18 09:24 Dose: 15 ml Fentanyl Citrate (Fentanyl*) 50 mcg IV SLOW PU Q1H PRN PRN Reason: PAIN Last Admin: 03/21/18 15:35 Dose: 50 mcg Propofol (Diprivan*) 100 mls @ 4.567 mls/hr IV .PER RATE DONELL; Protocol Norepinephrine Bitartrate (Levophed 16 Mcg/Ml Premix Bag*) 4,000 mcg in 250 mls @ 18.75 mls/hr IV .INITIAL RATE DONELL; Protocol Last Admin: 03/24/18 09:24 Dose: 18.75 mls/hr Phenylephrine HCl 50 mg/ (Sodium Chloride) 250 mls @ 60 mls/hr IV Q4H DONELL; Protocol Last Admin: 03/24/18 08:45 Dose: 60 mls/hr Sodium Chloride (Ns 0.9% 1000 Ml*) 1,000 mls @ 75 mls/hr IV PER RATE DONELL Last Admin: 03/23/18 14:55 Dose: 75 mls/hr Piperacillin Sod/Tazobactam (Sod 3.375 gm/ Sodium Chloride) 100 mls @ 25 mls/ hr IVPB Q8H DONELL Last Admin: 03/24/18 04:50 Dose: 25 mls/hr Desmopressin Acetate 10 mcg/ (Sodium Chloride) 52.5 mls @ 100 mls/hr IVPB Q12H [facility] Last Admin: 03/24/18 06:21 Dose: 100 mls/hr Vasopressin 100 units/ (Dextrose) 250 mls @ 6 mls/hr IVPB Q24HR@0800 [facility]; Protocol Last Admin: 03/24/18 08:52 Dose: 6 mls/hr Pantoprazole Sodium (Protonix Iv*) 40 mg IV Q24H [facility] Last Admin: 03/23/18 14:14 Dose: 40 mg Pharmacy Consult (Aysesyn Per Pharmacy*) 1 note FOLLOW UP . PRN PRN Reason: PER PROTOCOL Vital Signs 03/23/18 03/23/18 03/23/18 11:00 11:01 12:00 Temperature 96.1 F 96.1 F 96.4 F Pulse Rate 88 88 90 Respiratory 14 14 Rate Blood Pressure 103/76 105/72 (mmHg) O2 Sat by Pulse 97 97 98 Oximetry 03/23/18 03/23/18 03/23/18 12:01 13:00 13:01 Temperature 96.4 F 96.8 F 96.8 F Pulse Rate 90 92 92 Respiratory 14 Rate Blood Pressure 99/78 (mmHg) O2 Sat by Pulse 97 97 97 Oximetry 03/23/18 03/23/18 03/23/18 13:21 14:00 14:01 Temperature 97.0 F 97.0 F Pulse Rate 93 94 94 Respiratory 14 Rate Blood Pressure 110/78 (mmHg) O2 Sat by Pulse 98 95 96 Oximetry 03/23/18 03/23/18 03/23/18 14:50 15:00 15:01 Temperature 97.3 F 97.3 F Pulse Rate 98 97 Respiratory 14 20 Rate Blood Pressure 109/93 (mmHg) O2 Sat by Pulse 95 95 Oximetry 03/23/18 03/23/18 03/23/18 15:09 16:00 16:01 Temperature 97.7 F 97.5 F Pulse Rate 98 95 95 Respiratory 20 20 Rate Blood Pressure 109/76 (mmHg) O2 Sat by Pulse 96 97 97 Oximetry 03/23/18 03/23/18 03/23/18 17:00 17:01 18:00 Temperature 97.5 F 97.5 F 97.5 F Pulse Rate 93 94 90 Respiratory 20 20 Rate Blood Pressure 102/74 97/75 (mmHg) O2 Sat by Pulse 98 98 99 Oximetry 03/23/18 03/23/18 03/23/18 18:01 18:04 18:08 Temperature 97.5 F 97.5 F 97.5 F Pulse Rate 91 91 91 Respiratory Rate Blood Pressure 95/82 103/80 (mmHg) O2 Sat by Pulse 100 100 100 Oximetry 03/23/18 03/23/18 03/23/18 18:12 19:00 19:01 Temperature 97.5 F 97.5 F 97.5 F Pulse Rate 91 88 88 Respiratory 20 Rate Blood Pressure 101/75 102/82 (mmHg) O2 Sat by Pulse 100 100 100 Oximetry 03/23/18 03/23/18 03/23/18 19:40 20:00 20:01 Temperature 97.5 F 97.5 F Pulse Rate 88 89 89 Respiratory 20 20 Rate Blood Pressure 102/80 (mmHg) O2 Sat by Pulse 99 99 99 Oximetry 03/23/18 03/23/18 03/23/18 20:59 21:00 21:01 Temperature 97.5 F 97.5 F 97.5 F Pulse Rate 87 87 87 Respiratory 20 Rate Blood Pressure 104/81 108/78 (mmHg) O2 Sat by Pulse 99 99 99 Oximetry 03/23/18 03/23/18 03/23/18 21:15 21:30 22:00 Temperature 97.5 F 97.5 F 97.5 F Pulse Rate 87 87 86 Respiratory 20 Rate Blood Pressure 97/68 113/83 (mmHg) O2 Sat by Pulse 99 99 99 Oximetry 03/23/18 03/23/18 03/23/18 22:01 22:15 22:30 Temperature 97.5 F 97.5 F 97.3 F Pulse Rate 85 84 84 Respiratory Rate Blood Pressure 110/77 105/78 111/79 (mmHg) O2 Sat by Pulse 99 99 99 Oximetry 03/23/18 03/23/18 03/23/18 22:45 22:52 23:00 Temperature 97.5 F 97.5 F Pulse Rate 84 84 84 Respiratory 20 20 Rate Blood Pressure 106/78 113/85 (mmHg) O2 Sat by Pulse 100 100 99 Oximetry 03/23/18 03/23/18 03/23/18 23:01 23:14 23:15 Temperature 97.3 F 97.5 F 97.5 F Pulse Rate 83 82 82 Respiratory Rate Blood Pressure 116/79 (mmHg) O2 Sat by Pulse 99 99 99 Oximetry 03/23/18 03/23/18 03/23/18 23:30 23:45 23:49 Temperature 97.3 F 97.3 F 97.7 F Pulse Rate 83 83 Respiratory Rate Blood Pressure 122/89 121/85 (mmHg) O2 Sat by Pulse 99 99 Oximetry 03/23/18 03/24/18 03/24/18 23:50 00:00 00:01 Temperature 97.5 F 97.5 F Pulse Rate 84 83 Respiratory 20 Rate Blood Pressure 122/90 (mmHg) O2 Sat by Pulse 100 99 Oximetry 03/24/18 03/24/18 03/24/18 00:15 00:30 00:45 Temperature 97.5 F 97.5 F 97.3 F Pulse Rate 85 86 85 Respiratory Rate Blood Pressure 128/87 95/66 89/59 (mmHg) O2 Sat by Pulse 99 99 99 Oximetry 03/24/18 03/24/18 03/24/18 00:54 01:00 01:01 Temperature 97.5 F 97.5 F Pulse Rate 86 85 Respiratory 20 Rate Blood Pressure 98/72 (mmHg) O2 Sat by Pulse 96 96 Oximetry 03/24/18 03/24/18 03/24/18 01:15 01:30 01:46 Temperature 97.5 F 97.5 F 97.5 F Pulse Rate 85 84 85 Respiratory Rate Blood Pressure 110/79 82/58 114/80 (mmHg) O2 Sat by Pulse 98 98 99 Oximetry 03/24/18 03/24/18 03/24/18 02:00 02:01 02:42 Temperature 97.5 F 97.5 F 97.5 F Pulse Rate 85 85 87 Respiratory 20 Rate Blood Pressure 111/80 85/66 (mmHg) O2 Sat by Pulse 98 99 97 Oximetry 03/24/18 03/24/18 03/24/18 02:45 02:48 03:00 Temperature 97.5 F 97.5 F 97.5 F Pulse Rate 88 87 88 Respiratory 20 Rate Blood Pressure 84/61 97/63 88/61 (mmHg) O2 Sat by Pulse 96 96 96 Oximetry 03/24/18 03/24/18 03/24/18 03:01 03:11 03:15 Temperature 97.5 F 97.5 F Pulse Rate 88 86 84 Respiratory 20 Rate Blood Pressure 93/67 (mmHg) O2 Sat by Pulse 96 98 98 Oximetry 03/24/18 03/24/18 03/24/18 03:30 03:45 03:54 Temperature 97.5 F 97.5 F 97.5 F Pulse Rate 85 85 84 Respiratory Rate Blood Pressure 113/79 104/80 121/80 (mmHg) O2 Sat by Pulse 98 99 99 Oximetry 03/24/18 03/24/18 03/24/18 04:00 04:01 04:15 Temperature 97.5 F 97.5 F 97.5 F Pulse Rate 85 84 83 Respiratory 20 Rate Blood Pressure 113/81 104/73 (mmHg) O2 Sat by Pulse 99 99 99 Oximetry 03/24/18 03/24/18 03/24/18 04:30 04:45 04:56 Temperature 97.5 F 97.5 F Pulse Rate 83 82 Respiratory 20 Rate Blood Pressure 108/78 110/77 (mmHg) O2 Sat by Pulse 99 99 Oximetry 03/24/18 03/24/18 03/24/18 05:00 05:01 05:15 Temperature 97.5 F 97.5 F 97.5 F Pulse Rate 83 84 83 Respiratory Rate Blood Pressure 96/70 117/78 (mmHg) O2 Sat by Pulse 99 98 99 Oximetry 03/24/18 03/24/18 03/24/18 05:30 05:41 05:45 Temperature 97.5 F 97.5 F Pulse Rate 84 84 Respiratory 20 Rate Blood Pressure 123/89 115/80 (mmHg) O2 Sat by Pulse 100 99 Oximetry 03/24/18 03/24/18 03/24/18 06:00 06:01 06:15 Temperature 97.5 F 97.5 F 97.5 F Pulse Rate 84 84 83 Respiratory Rate Blood Pressure 112/82 109/79 (mmHg) O2 Sat by Pulse 99 99 99 Oximetry 03/24/18 03/24/18 03/24/18 06:30 06:45 07:00 Temperature 97.5 F 97.5 F 97.5 F Pulse Rate 82 84 84 Respiratory 20 Rate Blood Pressure 118/82 115/83 117/81 (mmHg) O2 Sat by Pulse 99 97 98 Oximetry 03/24/18 03/24/18 03/24/18 07:01 07:15 07:30 Temperature 97.5 F 97.5 F 97.5 F Pulse Rate 84 83 85 Respiratory Rate Blood Pressure 121/85 119/80 (mmHg) O2 Sat by Pulse 98 98 97 Oximetry 03/24/18 03/24/18 03/24/18 07:45 07:47 08:00 Temperature 97.5 F 97.5 F Pulse Rate 81 82 83 Respiratory 20 20 Rate Blood Pressure 90/59 129/88 (mmHg) O2 Sat by Pulse 98 98 97 Oximetry 03/24/18 03/24/18 03/24/18 08:15 08:30 08:42 Temperature 97.5 F 97.5 F 97.5 F Pulse Rate 82 83 82 Respiratory Rate Blood Pressure 118/85 114/79 120/82 (mmHg) O2 Sat by Pulse 96 97 98 Oximetry 03/24/18 03/24/18 03/24/18 08:45 09:00 09:01 Temperature 97.5 F 97.5 F 97.5 F Pulse Rate 82 83 85 Respiratory 20 Rate Blood Pressure 119/86 131/93 (mmHg) O2 Sat by Pulse 97 97 96 Oximetry 03/24/18 03/24/18 03/24/18 09:15 09:30 09:45 Temperature 97.3 F 97.3 F Pulse Rate 84 88 88 Respiratory Rate Blood Pressure 117/76 100/54 89/62 (mmHg) O2 Sat by Pulse 95 94 93 Oximetry 03/24/18 03/24/18 03/24/18 09:58 10:00 10:01 Temperature 97.3 F 97.3 F 97.3 F Pulse Rate 85 84 83 Respiratory 20 Rate Blood Pressure 74/51 88/57 (mmHg) O2 Sat by Pulse 95 95 95 Oximetry 03/24/18 03/24/18 10:15 10:30 Temperature 97.3 F 97.3 F Pulse Rate 83 85 Respiratory Rate Blood Pressure 123/80 132/88 (mmHg) O2 Sat by Pulse 93 94 Oximetry Intake and Output Last 24 Hours 03/22/18 03/23/18 03/24/18 03/25/18 06:59 06:59 06:59 06:59 Intake Total 5553.4 5599.8 4922.4 Output Total 1166 2490 6380 320 Balance 4387.4 3109.8 -1457.6 -320 Weight 83 lb 14.4 oz 199 lb 1.239 oz 197 lb 12.074 oz Intake: IV Fluids 3885 3883 2765.3 ABX - ZOSYN 28.6 NS (0.9%) 1785 3883 2736.7 IVPB 139 ABX - ZOSYN 139 Medicated IV 1668.4 1661.8 2018.1 CC - Norepinephrine/ 1029 1079 1514 Levophed CC - Phenylephrine/ 611 511 313 Neosynephrine CC - Vasopressin/ 28.4 71.8 131.1 Pitressin DESMOPRESSIN 60 NG Tube Irrigate Amount 55 Output: NG Tube Drainage Amount 550 G Tube 500 Geronimo 1166 2490 5330 320 Oxygen Devices in Use Now: Mechanical Ventilator Neurology Exam: Critically ill appearing young man in no distress. He does not breath over the ventilator. Neurological assessment: Pt is in a coma. He does not respond to verbal or noxious stimuli. Anisocoria with non-reactive pupils measuring 6 mm OS and 4 mm OD. Absent corneal reflex Absent vestibulocular reflex Absent Gag and cough reflex He does not localize to pain. He has bilateral pronation-extension reflex movements. Negative Jimi sign. Result Diagrams: 03/24/18 05:37 03/24/18 05:37 Microbiology and Other Data: Microbiology 03/23/18 17:10 Gram Stain - Final Sputum Trach 03/21/18 13:20 Urine Culture - Final Urine No Growth (<1,000 CFU/mL) 03/21/18 16:00 Nasal Screen MRSA (PCR) - Final Nasal Mrsa Not Detected Assessment/Plan Mr. 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 The patient is not stable enough to undergo brain testing. In addition, we began rewarming yesterday and clinical brain testing should initiate at least 72 hours post rewarming. The family is aware of his grim prognosis and would like to proceed with withdrawal of care within the next 24 hours. If brain testing is required, then the patient should undergo a cerebral perfusion study for further clarification. Overall, there has been no change in the patient's prognosis from yesterday. Discussed the above recommendations with Dr. Hanna.
[2018-03-24 11:43] LABS: ABS Basophils 0 10^3/ul (0-0.2); ABS Eosinophils 0.2 10^3/ul (0-0.6); ABS Lymphocytes 0.7 10^3/ul (1.0-4.8); ABS Monocytes 0.4 10^3/ul (0-0.8); ABS Neutrophils 6.3 10^3/ul (1.5-7.7); ABS Nucleated RBC 0 10^3/ul; Eosinophil % 2.7 % (0-6); Hematocrit 37 % (42-52); Hemoglobin 12.4 g/dl (14.0-18.0); Lymphocyte % 8.9 % (25-47); Mean Corpuscular HGB Conc 34 g/dl (31-36); Mean Corpuscular Hemoglobin 29 pg (27-31); Mean Corpuscular Volume 88 fL (80-94); Mean Platelet Volume 9.4 fL (7.4-10.4); Nucleated Red Blood Cells % 0; Platelet Count 117 10^3/ul (150-450); Red Blood Count 4.22 10^6/ul (4.00-5.40); Red Cell Distribution Width 14 % (10.5-15); White Blood Count 7.6 10^3/ul (3.5-10.8)
[2018-03-24 12:01] LABS: Activated Partial Thrombo Time 32.4 seconds (26.0-36.3); Albumin 2.8 g/dL (3.2-5.2); Albumin/Globulin Ratio 1.4 (1-3); BUN/Creatinine Ratio 13.9 (8-20); EGFR Non-African American 57.5 (>60); INR 1.59 (0.77-1.02); Magnesium 1.4 mg/dL (1.9-2.7); Potassium 4.5 mmol/L (3.5-5.0); Total Bilirubin 0.9 mg/dL (0.2-1.0); Total Protein 4.8 g/dL (6.4-8.9)
--- NOTE | 2018-03-24 12:42 | PN ---
Date of Service: 03/24/18 - [facility] note Critical Care Services: Pt seen and examined at bedside this am. No acute events o/n Still continues to require pressor support, now on max dose of 3 vasopressors Labs, meds, vitals reviewed Care plan discussed in interdisciplinary rounds Vital Signs: Temp Pulse Resp BP SpO2 FiO2 97.2 F 80 20 107/88 96 40 03/24/18 12:01 03/24/18 12:01 03/24/18 11:45 03/24/18 12:01 03/24/18 12:01 03/24 11:45 Physical Exam: Gen: Pt in NAD HEENT: ETT in place, No JVD Lungs: Coarse breath sounds + Cardiac: S1, S2+, regular Abdomen: Soft, diminished breath sounds Extremities: No edema Neuro: Non-localizing head movements to painful stimuli, pupils dilated, non- reactive Skin: No rash Fluid Balance (Past 24 Hours): I= 4922 O= 6380 Net -1457 Intake & Output 03/22/18 03/23/18 03/24/18 03/25/18 06:59 06:59 06:59 06:59 Intake Total 5553.4 5599.8 4922.4 Output Total 1166 2490 6380 490 Balance 4387.4 3109.8 -1457.6 -490 Weight 83 lb 14.4 oz 199 lb 1.239 oz 197 lb 12.074 oz Intake: IV Fluids 3885 3883 2765.3 ABX - ZOSYN 28.6 NS (0.9%) 1785 3883 2736.7 IVPB 139 ABX - ZOSYN 139 Medicated IV 1668.4 1661.8 2018.1 CC - Norepinephrine/ 1029 1079 1514 Levophed CC - Phenylephrine/ 611 511 313 Neosynephrine CC - Vasopressin/ 28.4 71.8 131.1 Pitressin DESMOPRESSIN 60 NG Tube Irrigate Amount 55 Output: NG Tube Drainage Amount 550 G Tube 500 Geronimo 1166 2490 5330 490 Labs: Laboratory Results - last 24 hr 03/21/18 03/23/18 03/23/18 14:09 13:30 14:21 WBC RBC Hgb Hct MCV MCH MCHC RDW Plt Count MPV Neut % (Auto) Lymph % (Auto) Sampson % (Auto) Eos % (Auto) Baso % (Auto) Absolute Neuts (auto) Absolute Lymphs (auto) Absolute Monos (auto) Absolute Eos (auto) Absolute Basos (auto) Absolute Nucleated RBC Nucleated RBC % Hem Pathologist Commnt INR (Anticoag Therapy) APTT Patient Temperature 36.3 c ABG pH 7.18 L* ABG pH (Temp Correct) Not Reportable ABG pCO2 50 H ABG pCO2 (Temp Corrct Not Reportable ABG pO2 82 ABG pO2 (Temp Correct Not Reportable ABG HCO3 17.2 L ABG O2 Saturation 96.1 ABG Base Excess -9.8 L Respiration Rate Not Reportable O2 Delivery Device Ventilator Type Not Reportable Vent Mode Not Reportable FiO2 40 Inspiratory Time Not Reportable PEEP Not Reportable Pressure Support Not Reportable Pressure Control Not Reportable EPAP Not Reportable IPAP Not Reportable BiPAP Not Reportable Sodium 144 Potassium 5.4 H Chloride 121 H Carbon Dioxide 21 L Anion Gap 2 BUN 24 Creatinine 1.54 H Est GFR ( Amer) 60.8 Est GFR (Non-Af Amer) 50.3 BUN/Creatinine Ratio 15.6 Glucose 107 H POC Glucose (mg/dL) Hemoglobin A1c Serum Osmolality Calcium 8.1 L Ionized Calcium Magnesium 1.8 L Total Bilirubin 0.60 Direct Bilirubin Indirect Bilirubin GGT AST 242 H ALT 314 H Alkaline Phosphatase 98 Lactate Dehydrogenase Total Protein 4.6 L Albumin 2.7 L Globulin 1.9 L Albumin/Globulin Ratio 1.4 Amylase Lipase Urine Color Urine Appearance Urine pH Ur Specific [place] Urine Protein Urine Ketones Urine Blood Urine Nitrate Urine Bilirubin Urine Urobilinogen Ur Leukocyte Esterase Urine WBC (Auto) Urine RBC (Auto) Ur Squamous Epith Cells Urine Bacteria Urine Sperm Urine Glucose Blood Type Antibody Screen 03/23/18 03/23/18 03/23/18 15:30 15:30 15:30 WBC 8.7 RBC 4.99 Hgb 14.7 Hct 43 MCV 87 MCH 30 MCHC 34 RDW 14 Plt Count 124 L MPV 9.4 Neut % (Auto) Lymph % (Auto) Sampson % (Auto) Eos % (Auto) Baso % (Auto) Absolute Neuts (auto) Absolute Lymphs (auto) Absolute Monos (auto) Absolute Eos (auto) Absolute Basos (auto) Absolute Nucleated RBC Nucleated RBC % Hem Pathologist Commnt INR (Anticoag Therapy) APTT Patient Temperature ABG pH ABG pH (Temp Correct) ABG pCO2 ABG pCO2 (Temp Corrct ABG pO2 ABG pO2 (Temp Correct ABG HCO3 ABG O2 Saturation ABG Base Excess Respiration Rate O2 Delivery Device Ventilator Type Vent Mode FiO2 Inspiratory Time PEEP Pressure Support Pressure Control EPAP IPAP BiPAP Sodium Potassium Chloride Carbon Dioxide Anion Gap BUN Creatinine Est GFR ( Amer) Est GFR (Non-Af Amer) BUN/Creatinine Ratio Glucose POC Glucose (mg/dL) Hemoglobin A1c Serum Osmolality Calcium Ionized Calcium Magnesium Total Bilirubin Direct Bilirubin Indirect Bilirubin GGT AST ALT Alkaline Phosphatase Lactate Dehydrogenase Total Protein Albumin Globulin Albumin/Globulin Ratio Amylase Lipase Urine Color Urine Appearance Urine pH Ur Specific [place] Urine Protein Urine Ketones Urine Blood Urine Nitrate Urine Bilirubin Urine Urobilinogen Ur Leukocyte Esterase Urine WBC (Auto) Urine RBC (Auto) Ur Squamous Epith Cells Urine Bacteria Urine Sperm Urine Glucose Blood Type O Positive O Positive Antibody Screen Negative Negative 03/23/18 03/23/18 03/23/18 17:38 18:03 18:03 WBC RBC Hgb Hct MCV MCH MCHC RDW Plt Count MPV Neut % (Auto) Lymph % (Auto) Sampson % (Auto) Eos % (Auto) Baso % (Auto) Absolute Neuts (auto) Absolute Lymphs (auto) Absolute Monos (auto) Absolute Eos (auto) Absolute Basos (auto) Absolute Nucleated RBC Nucleated RBC % Hem Pathologist Commnt INR (Anticoag Therapy) 1.59 H APTT 31.6 Patient Temperature ABG pH ABG pH (Temp Correct) ABG pCO2 ABG pCO2 (Temp Corrct ABG pO2 ABG pO2 (Temp Correct ABG HCO3 ABG O2 Saturation ABG Base Excess Respiration Rate O2 Delivery Device Ventilator Type Vent Mode FiO2 Inspiratory Time PEEP Pressure Support Pressure Control EPAP IPAP BiPAP Sodium Potassium Chloride Carbon Dioxide Anion Gap BUN Creatinine Est GFR ( Amer) Est GFR (Non-Af Amer) BUN/Creatinine Ratio Glucose POC Glucose (mg/dL) Hemoglobin A1c Serum Osmolality Calcium Ionized Calcium Magnesium Total Bilirubin Direct Bilirubin Indirect Bilirubin GGT 63 AST ALT Alkaline Phosphatase Lactate Dehydrogenase 847 H Total Protein Albumin Globulin Albumin/Globulin Ratio Amylase 68 Lipase 13 Urine Color Yellow Urine Appearance Clear Urine pH 5.0 Ur Specific [place] 1.006 L Urine Protein Negative Urine Ketones Negative Urine Blood 1+ A Urine Nitrate Negative Urine Bilirubin Negative Urine Urobilinogen Negative Ur Leukocyte Esterase Negative Urine WBC (Auto) Trace(0-5/hpf) Urine RBC (Auto) Absent Ur Squamous Epith Cells Present A Urine Bacteria Absent Urine Sperm Present A Urine Glucose Negative Blood Type Antibody Screen 03/23/18 03/23/18 03/23/18 18:03 18:03 18:07 WBC RBC Hgb Hct MCV MCH MCHC RDW Plt Count MPV Neut % (Auto) Lymph % (Auto) Sampson % (Auto) Eos % (Auto) Baso % (Auto) Absolute Neuts (auto) Absolute Lymphs (auto) Absolute Monos (auto) Absolute Eos (auto) Absolute Basos (auto) Absolute Nucleated RBC Nucleated RBC % Hem Pathologist Commnt INR (Anticoag Therapy) APTT Patient Temperature ABG pH ABG pH (Temp Correct) ABG pCO2 ABG pCO2 (Temp Corrct ABG pO2 ABG pO2 (Temp Correct ABG HCO3 ABG O2 Saturation ABG Base Excess Respiration Rate O2 Delivery Device Ventilator Type Vent Mode FiO2 Inspiratory Time PEEP Pressure Support Pressure Control EPAP IPAP BiPAP Sodium Potassium Chloride Carbon Dioxide Anion Gap BUN Creatinine Est GFR ( Amer) Est GFR (Non-Af Amer) BUN/Creatinine Ratio Glucose POC Glucose (mg/dL) 119 H Hemoglobin A1c 5.5 Serum Osmolality 311 H Calcium Ionized Calcium Magnesium Total Bilirubin Direct Bilirubin Indirect Bilirubin GGT AST ALT Alkaline Phosphatase Lactate Dehydrogenase Total Protein Albumin Globulin Albumin/Globulin Ratio Amylase Lipase Urine Color Urine Appearance Urine pH Ur Specific [place] Urine Protein Urine Ketones Urine Blood Urine Nitrate Urine Bilirubin Urine Urobilinogen Ur Leukocyte Esterase Urine WBC (Auto) Urine RBC (Auto) Ur Squamous Epith Cells Urine Bacteria Urine Sperm Urine Glucose Blood Type Antibody Screen 03/23/18 03/23/18 03/23/18 18:25 20:03 22:00 WBC RBC Hgb Hct MCV MCH MCHC RDW Plt Count MPV Neut % (Auto) Lymph % (Auto) Sampson % (Auto) Eos % (Auto) Baso % (Auto) Absolute Neuts (auto) Absolute Lymphs (auto) Absolute Monos (auto) Absolute Eos (auto) Absolute Basos (auto) Absolute Nucleated RBC Nucleated RBC % Hem Pathologist Commnt INR (Anticoag Therapy) APTT Patient Temperature ABG pH 7.29 L ABG pH (Temp Correct) ABG pCO2 41 ABG pCO2 (Temp Corrct ABG pO2 78 L ABG pO2 (Temp Correct ABG HCO3 19.7 ABG O2 Saturation 96.6 ABG Base Excess -6.6 L Respiration Rate O2 Delivery Device Ventilator Type Vent Mode FiO2 Inspiratory Time PEEP Pressure Support Pressure Control EPAP IPAP BiPAP Sodium Potassium Chloride Carbon Dioxide Anion Gap BUN Creatinine Est GFR ( Amer) Est GFR (Non-Af Amer) BUN/Creatinine Ratio Glucose POC Glucose (mg/dL) 119 H Hemoglobin A1c Serum Osmolality Calcium Ionized Calcium Magnesium Total Bilirubin Direct Bilirubin Indirect Bilirubin GGT AST ALT Alkaline Phosphatase Lactate Dehydrogenase Total Protein Albumin Globulin Albumin/Globulin Ratio Amylase Lipase Urine Color Urine Appearance Urine pH Ur Specific [place] Urine Protein Urine Ketones Urine Blood Urine Nitrate Urine Bilirubin Urine Urobilinogen Ur Leukocyte Esterase Urine WBC (Auto) Urine RBC (Auto) Ur Squamous Epith Cells Urine Bacteria Urine Sperm Urine Glucose Blood Type O Positive Antibody Screen Negative 03/23/18 03/23/18 03/23/18 22:05 23:45 23:45 WBC RBC Hgb Hct MCV MCH MCHC RDW Plt Count MPV Neut % (Auto) Lymph % (Auto) Sampson % (Auto) Eos % (Auto) Baso % (Auto) Absolute Neuts (auto) Absolute Lymphs (auto) Absolute Monos (auto) Absolute Eos (auto) Absolute Basos (auto) Absolute Nucleated RBC Nucleated RBC % Hem Pathologist Commnt INR (Anticoag Therapy) 1.65 H APTT 33.1 Patient Temperature ABG pH ABG pH (Temp Correct) ABG pCO2 ABG pCO2 (Temp Corrct ABG pO2 ABG pO2 (Temp Correct ABG HCO3 ABG O2 Saturation ABG Base Excess Respiration Rate O2 Delivery Device Ventilator Type Vent Mode FiO2 Inspiratory Time PEEP Pressure Support Pressure Control EPAP IPAP BiPAP Sodium Potassium Chloride Carbon Dioxide Anion Gap BUN Creatinine Est GFR ( Amer) Est GFR (Non-Af Amer) BUN/Creatinine Ratio Glucose POC Glucose (mg/dL) 117 H Hemoglobin A1c Serum Osmolality Calcium Ionized Calcium 4.70 Magnesium Total Bilirubin Direct Bilirubin Indirect Bilirubin GGT AST ALT Alkaline Phosphatase Lactate Dehydrogenase Total Protein Albumin Globulin Albumin/Globulin Ratio Amylase Lipase Urine Color Urine Appearance Urine pH Ur Specific [place] Urine Protein Urine Ketones Urine Blood Urine Nitrate Urine Bilirubin Urine Urobilinogen Ur Leukocyte Esterase Urine WBC (Auto) Urine RBC (Auto) Ur Squamous Epith Cells Urine Bacteria Urine Sperm Urine Glucose Blood Type Antibody Screen 03/23/18 03/23/18 03/23/18 23:45 23:45 23:45 WBC 10.0 RBC 4.57 Hgb 13.4 L Hct 40 L MCV 87 MCH 29 MCHC 34 RDW 14 Plt Count 121 L MPV 9.3 Neut % (Auto) 73.6 Lymph % (Auto) 11.0 L Sampson % (Auto) 4.5 Eos % (Auto) 10.6 H Baso % (Auto) 0.3 Absolute Neuts (auto) 7.4 Absolute Lymphs (auto) 1.1 Absolute Monos (auto) 0.5 Absolute Eos (auto) 1.1 H Absolute Basos (auto) 0 Absolute Nucleated RBC 0 Nucleated RBC % 0 Hem Pathologist Commnt INR (Anticoag Therapy) APTT Patient Temperature ABG pH ABG pH (Temp Correct) ABG pCO2 ABG pCO2 (Temp Corrct ABG pO2 ABG pO2 (Temp Correct ABG HCO3 ABG O2 Saturation ABG Base Excess Respiration Rate O2 Delivery Device Ventilator Type Vent Mode FiO2 Inspiratory Time PEEP Pressure Support Pressure Control EPAP IPAP BiPAP Sodium 143 Potassium 4.5 Chloride 117 H Carbon Dioxide 22 Anion Gap 4 BUN 21 Creatinine 1.61 H Est GFR ( Amer) 57.8 Est GFR (Non-Af Amer) 47.8 BUN/Creatinine Ratio 13.0 Glucose 119 H POC Glucose (mg/dL) 124 H Hemoglobin A1c Serum Osmolality Calcium 8.3 L Ionized Calcium Magnesium 1.4 L Total Bilirubin 0.90 Direct Bilirubin 0.30 H Indirect Bilirubin 0.6 GGT AST 193 H ALT 285 H Alkaline Phosphatase 108 H Lactate Dehydrogenase Total Protein 4.8 L Albumin 2.8 L Globulin 2.0 Albumin/Globulin Ratio 1.4 Amylase Lipase Urine Color Urine Appearance Urine pH Ur Specific [place] Urine Protein Urine Ketones Urine Blood Urine Nitrate Urine Bilirubin Urine Urobilinogen Ur Leukocyte Esterase Urine WBC (Auto) Urine RBC (Auto) Ur Squamous Epith Cells Urine Bacteria Urine Sperm Urine Glucose Blood Type Antibody Screen 03/24/18 03/24/18 03/24/18 02:06 03:31 04:01 WBC RBC Hgb Hct MCV MCH MCHC RDW Plt Count MPV Neut % (Auto) Lymph % (Auto) Sampson % (Auto) Eos % (Auto) Baso % (Auto) Absolute Neuts (auto) Absolute Lymphs (auto) Absolute Monos (auto) Absolute Eos (auto) Absolute Basos (auto) Absolute Nucleated RBC Nucleated RBC % Hem Pathologist Commnt INR (Anticoag Therapy) APTT Patient Temperature Not Reportable ABG pH 7.29 L ABG pH (Temp Correct) Not Reportable ABG pCO2 42 ABG pCO2 (Temp Corrct Not Reportable ABG pO2 75 L ABG pO2 (Temp Correct Not Reportable ABG HCO3 20.1 ABG O2 Saturation 96.5 ABG Base Excess -6.1 L Respiration Rate 20 O2 Delivery Device vent Ventilator Type 500 Vent Mode simv FiO2 40 Inspiratory Time Not Reportable PEEP 5 Pressure Support 5 Pressure Control Not Reportable EPAP Not Reportable IPAP Not Reportable BiPAP Not Reportable Sodium Potassium Chloride Carbon Dioxide Anion Gap BUN Creatinine Est GFR ( Amer) Est GFR (Non-Af Amer) BUN/Creatinine Ratio Glucose POC Glucose (mg/dL) 129 H 111 H Hemoglobin A1c Serum Osmolality Calcium Ionized Calcium Magnesium Total Bilirubin Direct Bilirubin Indirect Bilirubin GGT AST ALT Alkaline Phosphatase Lactate Dehydrogenase Total Protein Albumin Globulin Albumin/Globulin Ratio Amylase Lipase Urine Color Urine Appearance Urine pH Ur Specific [place] Urine Protein Urine Ketones Urine Blood Urine Nitrate Urine Bilirubin Urine Urobilinogen Ur Leukocyte Esterase Urine WBC (Auto) Urine RBC (Auto) Ur Squamous Epith Cells Urine Bacteria Urine Sperm Urine Glucose Blood Type Antibody Screen 03/24/18 03/24/18 03/24/18 04:03 05:37 05:37 WBC RBC Hgb Hct MCV MCH MCHC RDW Plt Count MPV Neut % (Auto) Lymph % (Auto) Sampson % (Auto) Eos % (Auto) Baso % (Auto) Absolute Neuts (auto) Absolute Lymphs (auto) Absolute Monos (auto) Absolute Eos (auto) Absolute Basos (auto) Absolute Nucleated RBC Nucleated RBC % Hem Pathologist Commnt INR (Anticoag Therapy) 1.62 H APTT 28.8 Patient Temperature ABG pH ABG pH (Temp Correct) ABG pCO2 ABG pCO2 (Temp Corrct ABG pO2 ABG pO2 (Temp Correct ABG HCO3 ABG O2 Saturation ABG Base Excess Respiration Rate O2 Delivery Device Ventilator Type Vent Mode FiO2 Inspiratory Time PEEP Pressure Support Pressure Control EPAP IPAP BiPAP Sodium Potassium Chloride Carbon Dioxide Anion Gap BUN Creatinine Est GFR ( Amer) Est GFR (Non-Af Amer) BUN/Creatinine Ratio Glucose POC Glucose (mg/dL) Hemoglobin A1c Serum Osmolality Calcium Ionized Calcium 4.73 Magnesium Total Bilirubin Direct Bilirubin Indirect Bilirubin GGT AST ALT Alkaline Phosphatase Lactate Dehydrogenase Total Protein Albumin Globulin Albumin/Globulin Ratio Amylase 71 Lipase 18 Urine Color Urine Appearance Urine pH Ur Specific [place] Urine Protein Urine Ketones Urine Blood Urine Nitrate Urine Bilirubin Urine Urobilinogen Ur Leukocyte Esterase Urine WBC (Auto) Urine RBC (Auto) Ur Squamous Epith Cells Urine Bacteria Urine Sperm Urine Glucose Blood Type Antibody Screen 03/24/18 03/24/18 03/24/18 05:37 05:37 08:58 WBC 9.3 RBC 4.37 Hgb 12.9 L Hct 38 L MCV 87 MCH 30 MCHC 34 RDW 14 Plt Count 120 L MPV 9.7 Neut % (Auto) 78.5 Lymph % (Auto) 10.3 L Sampson % (Auto) 5.3 Eos % (Auto) 5.7 Baso % (Auto) 0.2 Absolute Neuts (auto) 7.3 Absolute Lymphs (auto) 1.0 Absolute Monos (auto) 0.5 Absolute Eos (auto) 0.5 Absolute Basos (auto) 0 Absolute Nucleated RBC 0 Nucleated RBC % 0 Hem Pathologist Commnt INR (Anticoag Therapy) APTT Patient Temperature ABG pH ABG pH (Temp Correct) ABG pCO2 ABG pCO2 (Temp Corrct ABG pO2 ABG pO2 (Temp Correct ABG HCO3 ABG O2 Saturation ABG Base Excess Respiration Rate O2 Delivery Device Ventilator Type Vent Mode FiO2 Inspiratory Time PEEP Pressure Support Pressure Control EPAP IPAP BiPAP Sodium 143 Potassium 4.6 Chloride 118 H Carbon Dioxide 20 L Anion Gap 5 BUN 21 Creatinine 1.52 H Est GFR ( Amer) 61.8 Est GFR (Non-Af Amer) 51.0 BUN/Creatinine Ratio 13.8 Glucose 126 H POC Glucose (mg/dL) 144 H Hemoglobin A1c Serum Osmolality Calcium 8.2 L Ionized Calcium Magnesium 1.4 L Total Bilirubin 0.90 Direct Bilirubin Indirect Bilirubin GGT AST 182 H ALT 276 H Alkaline Phosphatase 109 H Lactate Dehydrogenase Total Protein 4.8 L Albumin 2.7 L Globulin 2.1 Albumin/Globulin Ratio 1.3 Amylase Lipase Urine Color Urine Appearance Urine pH Ur Specific [place] Urine Protein Urine Ketones Urine Blood Urine Nitrate Urine Bilirubin Urine Urobilinogen Ur Leukocyte Esterase Urine WBC (Auto) Urine RBC (Auto) Ur Squamous Epith Cells Urine Bacteria Urine Sperm Urine Glucose Blood Type Antibody Screen 03/24/18 03/24/18 03/24/18 10:13 11:29 11:29 WBC RBC Hgb Hct MCV MCH MCHC RDW Plt Count MPV Neut % (Auto) Lymph % (Auto) Sampson % (Auto) Eos % (Auto) Baso % (Auto) Absolute Neuts (auto) Absolute Lymphs (auto) Absolute Monos (auto) Absolute Eos (auto) Absolute Basos (auto) Absolute Nucleated RBC Nucleated RBC % Hem Pathologist Commnt INR (Anticoag Therapy) 1.59 H APTT 32.4 Patient Temperature ABG pH ABG pH (Temp Correct) ABG pCO2 ABG pCO2 (Temp Corrct ABG pO2 ABG pO2 (Temp Correct ABG HCO3 ABG O2 Saturation ABG Base Excess Respiration Rate O2 Delivery Device Ventilator Type Vent Mode FiO2 Inspiratory Time PEEP Pressure Support Pressure Control EPAP IPAP BiPAP Sodium Potassium Chloride Carbon Dioxide Anion Gap BUN Creatinine Est GFR ( Amer) Est GFR (Non-Af Amer) BUN/Creatinine Ratio Glucose POC Glucose (mg/dL) 141 H Hemoglobin A1c Serum Osmolality Calcium Ionized Calcium 4.46 L Magnesium Total Bilirubin Direct Bilirubin Indirect Bilirubin GGT AST ALT Alkaline Phosphatase Lactate Dehydrogenase Total Protein Albumin Globulin Albumin/Globulin Ratio Amylase Lipase Urine Color Urine Appearance Urine pH Ur Specific [place] Urine Protein Urine Ketones Urine Blood Urine Nitrate Urine Bilirubin Urine Urobilinogen Ur Leukocyte Esterase Urine WBC (Auto) Urine RBC (Auto) Ur Squamous Epith Cells Urine Bacteria Urine Sperm Urine Glucose Blood Type Antibody Screen 03/24/18 03/24/18 11:29 11:29 WBC 7.6 RBC 4.22 Hgb 12.4 L Hct 37 L MCV 88 MCH 29 MCHC 34 RDW 14 Plt Count 117 L MPV 9.4 Neut % (Auto) 82.5 Lymph % (Auto) 8.9 L Sampson % (Auto) 5.6 Eos % (Auto) 2.7 Baso % (Auto) 0.3 Absolute Neuts (auto) 6.3 Absolute Lymphs (auto) 0.7 L Absolute Monos (auto) 0.4 Absolute Eos (auto) 0.2 Absolute Basos (auto) 0 Absolute Nucleated RBC 0 Nucleated RBC % 0 Hem Pathologist Commnt INR (Anticoag Therapy) APTT Patient Temperature ABG pH ABG pH (Temp Correct) ABG pCO2 ABG pCO2 (Temp Corrct ABG pO2 ABG pO2 (Temp Correct ABG HCO3 ABG O2 Saturation ABG Base Excess Respiration Rate O2 Delivery Device Ventilator Type Vent Mode FiO2 Inspiratory Time PEEP Pressure Support Pressure Control EPAP IPAP BiPAP Sodium 142 Potassium 4.5 Chloride 117 H Carbon Dioxide 23 Anion Gap 2 BUN 19 Creatinine 1.37 H Est GFR ( Amer) 69.6 Est GFR (Non-Af Amer) 57.5 BUN/Creatinine Ratio 13.9 Glucose 128 H POC Glucose (mg/dL) Hemoglobin A1c Serum Osmolality Calcium 8.0 L Ionized Calcium Magnesium 1.4 L Total Bilirubin 0.90 Direct Bilirubin Indirect Bilirubin GGT AST 163 H ALT 262 H Alkaline Phosphatase 109 H Lactate Dehydrogenase Total Protein 4.8 L Albumin 2.8 L Globulin 2.0 Albumin/Globulin Ratio 1.4 Amylase Lipase Urine Color Urine Appearance Urine pH Ur Specific [place] Urine Protein Urine Ketones Urine Blood Urine Nitrate Urine Bilirubin Urine Urobilinogen Ur Leukocyte Esterase Urine WBC (Auto) Urine RBC (Auto) Ur Squamous Epith Cells Urine Bacteria Urine Sperm Urine Glucose Blood Type Antibody Screen Nutrition: NPO Impression: 42 y o m with h/o IVDA, asthma, recently dx with coronary vasospasm after recent hospitalization in December and cath, [facility] from [facility] after found unresponsive with NTG bottle in his hands, had prolonged CPR for asystoly, defibrillation for V.fib, was found to have STEMI, s/p coronary angiogram, no thrombus seen, had labile BP and then hypotension sec to cardiogenic shock with labile BP. Hypothermia protocol for V.fib arrest with ROSC. Pt was rewarmed, for 24 hrs 1. Cardiogenic shock sec to biventricular failure 2.Hypoxic encephalopathy- Diffuse 3. Resp failure s/p intubation 4. STEMI s/p cath with coronary vasospasm 5.Severe metabolic acidosis and resp acidosis 6.ARF 7. Shock liver 8.Coma Plan: 1. Neuro: Diffuse hypoxic encephalopathy. Pt is in Coma, non-localizing movements to painful stimuli. No spontaneous respirations on ventilator. Neuro f /u appreciated. Prognosis poor with no chance for meaningful recovery. Rewarmed with normal temp for 24 hrs, Vent bundle, Keep head of bed elevated. 2.CVS: Cardiogenic shock, labile BP likely secondary to autonomic neuropathy. Requiring vasopressor support. ECHO - EF 20% with global hypofunction. 3. Resp: On mechanical ventilatory support, small lt pl effusion. Vent settings adjusted to correct acidosis. No spontaneous respirations this am when vent support was paused to check for spontaneous breathing. No gag reflex with suctioning attempt. Vent bundle ordered. Wheeze resolved. Pulm toilet 4. ID: Leucocytosis on admission- resolved. Sputum cx positive for Klebsiella, Staph aureus, susceptibilities pending. Abx ordered as required for organ donation. 5. GI: NPO for now given high dose of pressors, has dark secretions through OGT , c/w low intermittent suctioning. GI ppx 6. Renal: UO at 30cc/hr, Cr high, Will give dose of Lasix. Is receiving IVF at 75cc/hr. Hyperkalemia- improving. Lactic acid normalized. Required Desmopressin yesterday for possible DI. 7. Haem: H&H stable 8. Endo: Bl sugars slightly elevated. Will monitor 9. Musculoskeletal: Frequent turning and positioning IV access: Rt radial A-line 03/21 for hemodynamic monitoring, was removed yesterday as it was not transducing. Unsuccessful Lt femoral access Lt femoral ICY catheter-03/21 for hypothermia and vascular access Geronimo catheter- to monitor fluid status and to prevent skin break down Discussed with pts father Arsenio Kern and pts sister. Updated on recent developments and answered all questions. Pts aunt arrived from [place]. No other family is expected. Family feel this is appropriate time to proceed with organ donation and withdrawl of life support. Pts father and sister expressed very clearly that pt didnot want to live with poor qualify of life, didnot want to be bedridden and on machine support. They are aware that formal brain protocol couldnot be performed until 72 hrs after rewarming and also given that pt is on vasopressor support. Pt is DNR with request from family for withdrawl of life support. [facility] forms signed by pts father reflecting this. Terminal extubation when court orders were obtained to proceed with organ transplantation. Critical Care Time: 30 min
[2018-03-24] MEDS: NS 0.9% 1000 ML* 1,000 ML IV SCH (14:23)
[2018-03-24] MEDS: Pantoprazole IV* 40 MG IV SCH (14:54)
--- NOTE | 2018-03-24 16:32 | PN ---
Progress Note - Progress Note Date of Service: 03/24/18 - Arterial line attempted Note: Procedure: Arterial Line Placement unsuccessful attempt at Lt radial and Lt femoral and Lt brachial Physician: Jacques NAYLOR Indication: Hemodynamic monitoring Anesthesia: None Procedure: A time-out was completed verifying correct patient, procedure, site, positioning, and implant(s) or special equipment if applicable. Allens test was performed to ensure adequate perfusion. Patients left wrist and left thigh was prepped and draped in the usual sterile fashion. Ultrasound guidance was used to aid needle placement. A 20g Arrow arterial line was introduced into the radial artery, flash was seen, pulsatile flow was ensured however catheter clogs off and no reading was noted. Similar issue encountered with femoral artery and Lt brachial. Procedure was d/derrick. Blood Loss: Minimal Complications: None
[2018-03-24 17:00] LABS: Urine Appearance Clear; Urine Bacteria Absent (Absent); Urine Bilirubin Negative (Negative); Urine Blood 1+ (Negative); Urine Color Yellow; Urine Glucose Negative (Negative); Urine Ketones Negative (Negative); Urine Nitrite Negative (Negative); Urine Protein Negative (Negative); Urine Red Blood Cell Trace(0-2/hpf) (Absent); Urine Specific Gravity 1.014 (1.010-1.030); Urine Urobilinogen Negative (Negative); Urine White Blood Cell Trace(0-5/hpf) (Absent)
[2018-03-24 17:08] LABS: Amylase 70 U/L (29-103)
[2018-03-24 18:33] LABS: INR 1.49 (0.77-1.02)
[2018-03-24 18:41] LABS: Hematocrit 33 % (42-52); Hemoglobin 11.4 g/dl (14.0-18.0); Mean Corpuscular HGB Conc 34 g/dl (31-36); Mean Corpuscular Hemoglobin 30 pg (27-31); Mean Corpuscular Volume 87 fL (80-94); Red Blood Count 3.83 10^6/ul (4.00-5.40); Red Cell Distribution Width 14 % (10.5-15); White Blood Count 5.4 10^3/ul (3.5-10.8)
[2018-03-24 18:53] LABS: Potassium 4.3 mmol/L (3.5-5.0)
[2018-03-24 18:54] LABS: Albumin 2.6 g/dL (3.2-5.2); Albumin/Globulin Ratio 1.2 (1-3); BUN/Creatinine Ratio 13.8 (8-20); EGFR Non-African American 57.1 (>60); Globulin 2.1 g/dL (2-4); Magnesium 1.3 mg/dL (1.9-2.7); Phosphorus 3.1 mg/dL (2.5-5.0); Total Bilirubin 0.9 mg/dL (0.2-1.0); Total Protein 4.7 g/dL (6.4-8.9)
[2018-03-24 19:26] LABS: ABS Basophils 0 10^3/ul (0-0.2); ABS Eosinophils 0.1 10^3/ul (0-0.6); ABS Neutrophils 3.9 10^3/ul (1.5-7.7); Immature Granulocytes 15 % (0-9); Lymphocytes % 8 % (25-47); Mean Platelet Volume 9.7 fL (7.4-10.4); Metamyelocytes % 2 % (0-2); Monocytes % 3 % (0-7); Neutrophil % 72 % (38-83); Platelet Count 100 10^3/ul (150-450)
--- NOTE | 2018-03-24 21:03 | PN ---
Progress Note - Progress Note Date of Service: 03/24/18 - Procedure note Note: Procedure: Arterial Line Placement Rt femoral Physicians: Dr Jacques Pierre Indication: Hemodynamic monitoring, requested by organ transplantation team Anesthesia: None Procedure: A time-out was completed verifying correct patient, procedure, site, positioning, and implant(s) or special equipment if applicable. Patients left thigh was prepped and draped in the usual sterile fashion. Ultrasound guidance was used to aid needle placement. First attempt by surgeon Dr Brown given difficulty in obtaining access earlier by me. She was unsuccessful at which time I have attempted and was successful. Femoral arterial line was introduced into the femoral artery, flash was seen, pulsatile flow was ensured. Line was connected to transducer and readings correlated with non-invasive cuff pressures. Position affecting accurate measurement. Blood Loss: Minimal Complications: None
[2018-03-24] MEDS ORDERED: LORazepam INJ* 2 MG/ML 1 ML VIAL ONE (23:24)
[2018-03-24] MEDS ORDERED: Morphine VIAL* 4 MG/ML VIAL (1 ml vial) IV ONE (23:24)
[2018-03-25] MEDS ORDERED: Heparin VIAL(*) 5000 UNITS/ML VIAL (FIVE THOUSAND) ONE (00:04)
[2018-03-25] MEDS ORDERED: Morphine VIAL* 10 MG/ML 1 ML VIAL IV ONE (00:32)
[2018-03-25 01:01] VITALS: BP 142/100
--- NOTE | 2018-03-25 01:04 | PN ---
Progress Note - Progress Note Date of Service: 03/25/18 - Progress note Note: Patient was taken to OR for organ procurement around 12:14 am Pt was disconnected from ventilator, pressors stopped, family arrived in room Pt was found to have cardiac arrest. No responsiveness, no HR, no spontaneous breathing, no cardiac sounds, after waiting 5 minutes, pt was pronounced at 12:45 am on 03/25/18
--- NOTE | 2018-03-25 19:56 | DS ---
SUMMARY: DATE OF ADMISSION: 03/21/18 DATE OF EXPIRATION: 03/25/18 at 12:45 a.m. REASON FOR : Hypoxic encephalopathy. BRIEF SUMMARY OF HOSPITALIZATION: The patient was a 42-year-old male with a history of coronary vasospasm, currently incarcerated in long term. The patient was found unresponsive in his cell on 03/21/18. EMS arrived and performed CPR. He was defibrillated twice for ventricular fibrillation. The patient subsequently was brought to the emergency room, CPR was initiated again. The patient did not have cardiac activity on echocardiogram and resuscitation efforts were called off at which time he was found to have spontaneous respirations, was connected to monitors and noted to have blood pressure and heart rate. The patient was taken into cardiac catheterization for ST- elevation LA. He did not have occlusive disease. He was subsequently brought to the ICU. Hypothermia protocol was initiated for VFib arrest. His BP remained labile while in pathology lab technician and later, subsequently requiring vasopressor support. CT scan during the hospitalization revealed significant anoxic encephalopathy and diffuse edema was seen. Family arrived the following day. His father, Arsenio Abel, and sister were present. The patient continued to require significant vasopressor support on maximal doses of 3 pressors. He did not have any neurological activity. Please refer to neurology consultation note for further details. He was rewarmed, not found to have any life sustaining brain activity. As per family, the patient did not want to be on life support for the rest of his life. Family decided on do not resuscitate and terminal extubation. The patient was organ donor and organ donor network was contacted. Court order was obtained, as the patient was incarcerated, for organ donation. Organ donation was arranged in the OR today, kidneys and liver were procured by the team. The patient was pronounced after terminal extubation and stopping of vasopressors at 12:45 a.m. on 03/25/18. Organ donation team subsequently procured the organs. Family was at bedside during the process following terminal extubation. The patient was not in any distress at that time. The patient to have autopsy by dye reel operator helper following and certificate to be filled by dye reel operator helper. This is a brief summary of the patient's hospitalization. Please refer to consultation reports and daily progress notes for further details. [id number]/[facility] #: [id number] [facility]
--- NOTE | 2018-03-25 21:08 | PN ---
GENERAL SURGERY PROGRESS NOTE: DATE OF SERVICE: 03/24/18 I was asked to come to the ICU at the request of ICU attending regarding assistance with placement of radial A line which this patient would require for an upcoming organ procurement. The patient had suffered an anoxic brain injury and was currently on three vasopressors. When I entered the ICU, I attempted to place radial A lines on both the right and left forearms; however despite ultrasound guidance and after after advancing the guidewire through the catheter , the A lines did not produce any blood return. Therefore, I attempted to place a right femoral artery A line. After multiple attempts, including an ultrasound guidance, I was able to only place a central venous line in the right femoral vein, the femoral artery was extremely difficult to cannulate. At this point, after discussion with the ICU attending, decision was made to not proceed any further. [id number]/[facility] #: [id number] [facility]
== END 2018-03-25 00:46 | disposition expired | DRG 181 ==
LOC: ED 12:26 → CHICATH 13:26 → EEVIPCON 14:46 → ICU 14:46
PROVIDERS: ADMIT Internal Medicine; ATTEND Internal Medicine
PROC: 0BH17EZ Insertion of Endotracheal Airway into Trachea, Via Natural or Artificial Opening (ICD-10-PCS; 2018-03-21)
PROC: B2111ZZ Fluoroscopy of Multiple Coronary Arteries using Low Osmolar Contrast (ICD-10-PCS; 2018-03-21)
PROC: 4A023N7 Measurement of Cardiac Sampling and Pressure, Left Heart, Percutaneous Approach (ICD-10-PCS; 2018-03-21)
PROC: B2151ZZ Fluoroscopy of Left Heart using Low Osmolar Contrast (ICD-10-PCS; 2018-03-21)
PROC: 06H033Z Insertion of Infusion Device into Inferior Vena Cava, Percutaneous Approach (ICD-10-PCS; 2018-03-21)
PROC: B5191ZA Fluoroscopy of Inferior Vena Cava using Low Osmolar Contrast, Guidance (ICD-10-PCS; 2018-03-21)
PROC: 3E033XZ Introduction of Vasopressor into Peripheral Vein, Percutaneous Approach (ICD-10-PCS; 2018-03-21)
PROC: 03HY32Z Insertion of Monitoring Device into Upper Artery, Percutaneous Approach (ICD-10-PCS; 2018-03-21)
PROC: 5A1945Z Respiratory Ventilation, 24-96 Consecutive Hours (ICD-10-PCS; principal; 2018-03-21 13:15)
PROC: 03P Upper Arteries, Removal (ICD-10-PCS; 2018-03-23)
PROC: 04HY32Z Insertion of Monitoring Device into Lower Artery, Percutaneous Approach (ICD-10-PCS; 2018-03-24)
PROC: 0BP1XDZ Removal of Intraluminal Device from Trachea, External Approach (ICD-10-PCS; 2018-03-25)
DX: I21.11 ST elevation (STEMI) myocardial infarction involving right coronary artery (principal); G93.6 Cerebral edema; J96.91 Respiratory failure, unspecified with hypoxia; K72.01 Acute and subacute hepatic failure with coma; G93.5 Compression of brain; E87.2 Acidosis; N17.9 Acute kidney failure, unspecified; G93.1 Anoxic brain damage, not elsewhere classified; E87.5 Hyperkalemia; R57.0 Cardiogenic shock; Z66 Do not resuscitate; D72.829 Elevated white blood cell count, unspecified; I08.1 Rheumatic disorders of both mitral and tricuspid valves; I95.9 Hypotension, unspecified; J45.909 Unspecified asthma, uncomplicated; F17.210 Nicotine dependence, cigarettes, uncomplicated; I49.01 Ventricular fibrillation; I11.0 Hypertensive heart disease with heart failure; K21.9 Gastro-esophageal reflux disease without esophagitis; Z87.442 Personal history of urinary calculi; I25.2 Old myocardial infarction; Z82.3 Family history of stroke; Z80.9 Family history of malignant neoplasm, unspecified; I50.82 Biventricular heart failure; R68.0 Hypothermia, not associated with low environmental temperature; Z52.4 Kidney donor; Z52.6 Liver donor
CPT/HCPCS: 36415; 36600; 70450; 71045; 76700; 80048; 80053; 80061; 80307; 81003; 81015; 82150; 82247; 82248; 82330; 82550; 82553; 82803; 82977; 83036; 83605; 83615; 83690; 83721; 83735; 83880; 83930; 84100; 84484; 85025; 85027; 85060; 85347; 85610; 85730; 86850; 86900; 86901; 87040; 87070; 87077; 87086; 87186; 87205; 87641; 93005; 93306; 94002; 94003; 94640; 99285; A9270-GY; C1887; J0171; J1644; J1940; J2060; J2270; J2543; J2597; J2704; J3010; J3475

== ENCOUNTER → 2018-03-25 00:45 | Day surgery (SDC) | payer OTHER | END | disposition home or self-care (01) | LOC: OR 00:45 | DX: Z52.89 Donor of other specified organs or tissues (principal) ==